=== PATIENT | female | born 1940 | race Caucasian/White ===

== ENCOUNTER → 2017-12-25 05:59 | Day surgery (SDC) | payer MEDICARE, BC ==
[~2017-12-25 05:59] MED LIST: Acetaminophen TAB* 325 MG PO PRN; Bacitracin OINTMENT* 0.5% 0.5 oz TUBE ONE; Buffered Lidocaine 0.9% SYRIN* 5 ML/SYR SYRINGE INTRADERM ONE; Clindamycin 900 MG IVPREMIX(* 900 MG/50 ML SDV IV ONE; Dexamethasone IV* 4 MG/ML 1 ML (4 MG) IV SLOW PU ONE; Dexamethasone IV* 4 MG/ML 1 ML (4 MG) ONE; DiMENhydriNATE IV* 50 MG/ML VIAL IV PUSH PRN; EPHEDrine (Pressors)* 50 MG/ML VIAL ONE; Famotidine IV* 10 MG/ML 2 ML (20 mg) IV ONE; Famotidine IV* 10 MG/ML 2 ML (20 mg) ONE; HYDROcodone/ACETAMIN 5-325 MG* 1 TAB ONE; HYDROcodone/ACETAMIN 5-325 MG* 1 TAB PO PRN; Heparin VIAL(*) 5000 UNITS/ML VIAL (FIVE THOUSAND) ONE; Labetalol IV* 5 MG/ML 20 ML VIAL ONE; Lidocaine 2% PF * 5 ML VIAL ONE; Midazolam* 1 MG/ML 2 ML VIAL (2 MG) ONE; Mivacurium Chloride* 20 MG/10 ML VIAL IV ONE; Naloxone* 0.4 MG/ML 1 ML VIAL IV PRN; Ondansetron INJ* 2 MG/ML VIAL ONE; Phenylephrine INJ* 10 MG/ML 1 ML VIAL (10 MG) ONE; Propofol* 10 MG/ML 20 ML BTL IV PUSH ONE; Scopolamine 1.5 mg* PATCH ONE; fentaNYL* 50 MCG/ML 2 ML VIAL (100 MCG VIAL) ONE
[2017-12-25 06:51] LABS: Hematocrit 38 % (35-47); Hemoglobin 12.9 g/dl (12.0-16.0); Mean Corpuscular HGB Conc 34 g/dl (31-36); Mean Corpuscular Hemoglobin 31 pg (27-31); Mean Corpuscular Volume 91 fL (80-97); Mean Platelet Volume 7.7 um3 (7.4-10.4); Platelet Count 225 10^3/ul (150-450); Red Blood Count 4.17 10^6/ul (4.00-5.40); Red Cell Distribution Width 13 % (10.5-15); White Blood Count 5.6 10^3/ul (3.5-10.8)
[2017-12-25] MEDS: fentaNYL* 50 MCG/ML 2 ML VIAL (100 MCG VIAL) IV PRN ×3 (11:18→11:48)
[2017-12-25 13:37] VITALS: BP 141/76
== END | disposition home or self-care (01) ==
LOC: OR 05:59
PROVIDERS: ATTEND Plastic Surgery
DX: T85.44XA Capsular contracture of breast implant, initial encounter (principal); Z85.3 Personal history of malignant neoplasm of breast; I10 Essential (primary) hypertension; E78.5 Hyperlipidemia, unspecified; R73.01 Impaired fasting glucose
CPT/HCPCS: 36415; 85027; 88304; A9270-GY; J1100; J1644; J2250; J2405; J2704; J3010

== ENCOUNTER 2018-10-13 15:46 | Emergency (ER) | payer MEDICARE, BC ==
--- OUTSIDE RECORDS SUMMARY | 2018-10-13 16:39 | XMS REPORT | Continuity of Care Document ---
:1940 External Reference #:[id number] Author Name Trinity Newby Care Team Providers Name Role Phone Val Levin MD Primary Care Physician Unavailable Payers Date Identification Numbers Payment Provider Subscriber Policy Number: [id number] Medicare Abhishek Merlos PayID: [id number] [address] [place] [address] Policy Number: [id number] [facility] Jose R Merlos PayID: [id number] [address] [place] [address] Problems Active Problems Provider Date Orthostatic hypotension Hector Wheeler M.D. Onset: 03/22/2011 Herpes zoster without complication Hector Wheeler M.D. Onset: 03/22/2011 Benign essential hypertension Hector Wheeler M.D. Onset: 12/07/2011 Pure hypercholesterolemia Hector Wheeler M.D. Onset: 12/07/2011 Localized, primary osteoarthritis of the Hector Wheeler M.D. Onset: 2011 lower leg Recurrent major depressive episodes Hector Wheeler M.D. Onset: 06/10/2012 Hypercalcemia Hector Wheeler M.D. Onset: 12/11/2012 Osteochondropathy Hector Wheeler M.D. Onset: 12/11/2012 Syncope and collapse Tamica Leon MD Onset: 02/15/2015 Idiopathic peripheral neuropathy Tamica Leon MD Onset: 02/15/2015 Epilepsy, not refractory Tamica Leon MD Onset: 03/10/2015 Diarrhea Dominic Tam MD Onset: 09/27/2006 Note: in 2014 neuro note was on Metamucil, Questran Family History Date Family Member(s) Observation Comments General Seizure Disorder Father Seizure Disorder possible, unclear, he was also an alcoholic. Onset: (age 62 Years) Mother Suicide 2 yrs after colon cancer Onset: (age 60 Years) Mother Colon Cancer had ostomy Social History Type Date Description Comments Sex Unknown Marital Status Lives With Tobacco Use Start: Unknown Never Smoked Cigarettes Smoking Status Reviewed: 10/11/18 Never Smoked Cigarettes ETOH Use 12/11/2012 Occasionally consumes alcohol Tobacco Use Start: Unknown Patient has never smoked Recreational Drug Use Denies Drug Use Exercise Type/Frequency Exercises regularly walks, water exercises at the [facility]- yoga , strength 3 days per week Allergies, Adverse Reactions, Alerts Active Allergies Reaction Severity Comments Date Amoxicillin Hives Rash and itching 03/11/2009 Codeine Phosphate nightmares terrible dreams 03/11/2009 Oxycontin Came off of very hard 03/11/2009 Black Pepper GI upset 09/27/2018 Medications Active Medications SIG Qnty Indications Ordering Date Provider Hydrochlorothiazide 1 by mouth 90caps Hector Shanks 01/30/2017 12.5mg every day Samia Wheeler Capsules Ibuprofen prn Hector Shanks 03/22/2011 200mg Capsules Samia Wheeler Lisinopril 1 by mouth 90tabs Kavin Levin, 10/08/2009 20mg Tablets every day M.D. Venlafaxine HCL ER Unknown 150mg Caps ER 24HR Mometasone Furoate Unknown 0.1% Ointment Probiotic 1 by mouth Unknown Capsules every day Calcium + D3 2 by mouth Unknown [id number] every day Tablets Zyrtec Allergy 1 by mouth Unknown 10mg Capsules every day Ketoconazole Unknown 2% Shampoo Hydrocortisone 2% facial Unknown cream Clotrimazole/Betamethasone Unknown Dipropionate 1-0.05% Cream Clobetasol Propionate Unknown 0.05% Ointment Loperamide HCL once daily and 30caps Unknown 2mg Capsules prn Simvastatin 1 tab by mouth 90tabs Kavin Levin, 40mg Tablets every night at M.D. bedtime History Medications Lidoderm one patch daily 30units Esdras 03/07/2011 - 5% Patches on for 12 h Samia Baeza 06/13/2011 Valtrex bid 14tabs 053.9 Esdras 03/06/2011 - 1gm Tablets Samia Baeza 03/22/2011 Meclizine HCL half two to three 20tabs 386.1 [place], 08/25/2009 - 25mg Tablets times a day 1 Samia 10/08/2009 Fexofenadine HCL 1 tab po qd prn 90tabs 272.4 Hector Shanks 06/09/2009 - 180mg Tablets Samia Wheeler 07/15/2014 Glucosamine-Chondroitin po bid 60caps Unknown - 10/27/2013 Capsules Probiotic 1 po qd Unknown - Capsules 06/10/2012 Metamucil 2 tbs by mouth 1Can Unknown - 28.3% Powder daily 07/31/2018 Calcium Citrate + 1 po bid Unknown - 600mg Tablets 10/27/2013 Cholestyramine 1 packet qd 90Packs Unknown - 4gm Packet 05/17/2015 Mucinex 1 tab twice a day 60tabs Unknown - 600mg Tablets ER 12HR by mouth as 07/31/2018 needed Probiotic-Acidophilus & 1 by mouth every 14caps Unknown - Bifidus day 07/31/2018 Capsules Vitamin D every day by Unknown - 400Unit Tablets mouth 09/11/2018 Biotin daily Unknown - 1mg Capsules 05/29/2016 Fexofenadine HCL 1 by mouth every Unknown - 180mg Tablets day prn 09/11/2018 Sudafed 24 Hour prn Unknown - 240mg Tablets 07/31/2018 ER 24HR Wellness Formula-Herbal daily prn Unknown - Defense Complex 07/31/2018 Sulfamethoxazole-Trimetho 1 by mouth every Unknown - prim day 02/11/2017 Unsure Tablets Cortisone cream for face Unknown - 09/11/2018 Prednisone Take 2 Tablets By Unknown - 5mg Tablets Mouth Once Daily 09/11/2018 For 7 Days, 1 Tablet Daily For... (Refer To Prescription Notes). Levocetirizine Barrett, - Dihydrochloride MD Justen 09/11/2018 5mg Tablets Lisinopril 1 po qd 90tabs Thananart, - 20mg Tablets Samia Qureshi 10/08/2009 Effexor XR 2 po qd 60caps Other Ordering - 150mg Caps ER 24HR Provider 07/31/2018 Hydrochlorothiazide 1 po qd 90tabs Hector Shanks - 12.5mg Samia Wheeler 06/12/2012 Tablets Loperamide HCL 1 tab po q6h prn Thananart, - 2mg Tablets Samia Qureshi 03/06/2011 Fexofenadine HCL 1 tab po qd prn 30tabs Thananart, - 180mg Tablets Samia Qureshi 06/09/2009 Omeprazole 1 po qd prn 30caps Thananart, - 20mg Capsules DR Kiera M.D. 03/06/2011 Famotidine 1 tab po bid prn Thananart, - 10mg Tablets Samia Qureshi 10/08/2009 Asa 1 po qod Swetha, - 81mg Samia Carter 07/31/2018 Alendronate Sodium 1 po weekly - 12tabs Hector Shanks - 70mg Tablets take on empty Samia Wheeler 03/06/2011 stomach, do not eat or recline for 30 minutes afterward Calcium-D 1 po bid 60caps Thananart, - [id number] Capsules Samia Qureshi 07/15/2014 Centrum Silver 1 po qd Thananart, - Tablets Samia Qureshi 05/29/2016 Vit. E 1 tab po qd Thananart, - 1000Iu Saima Qureshi 10/08/2009 Alkalol Nasal Wash use as directed Unknown - prn 10/08/2009 Acetaminophen 2 po qid prn 100tabs Thananart, - 325mg Tablets Samia Qureshi 07/31/2018 Coenzyme Q-10 1 tab po qd Thananart, - 100mg Capsules Samia Qureshi 10/08/2009 Lisinopril 1 po qd Unknown - 10mg Tablets 10/08/2009 Hydrochlorothiazide 1 by mouth every 90caps Kavin [place], - 12.5mg day M.DRosalia 01/30/2017 Capsules Immunizations CPT Code Status Date Vaccine Lot # [id number] Given 05/17/2015 Influenza Virus Vaccine, Quadrivalent, Split, [id number] Preservative Free 03135 Given 07/15/2014 Pneumococcal Conjugate Vaccine 13 Valent For [id number] Intramuscular Use 95697 Given 03/27/2013 Flu Vaccine Split Virus Preservative Free For [id number] Indiv 3Yr Older 89041 Given 12/07/2011 Pneumonia Vaccine [id number] 74722 Given 12/07/2011 Tdap - Tetanus/Diptheria/Acellular Pertussis [id number] 04710 Given 06/20/2011 Zoster (Zostavax) 53530 Given 06/20/2011 Zoster (Zostavax) [id number] Refused 05/29/2016 Influ Virus Vaccine, Quadrivalent, Split Virus, Im Fluzone not PF Vital Signs Date Vital Result Comment 10/11/2018 9:40am Height 65.5 inches 5'5.50" Weight 133.12 lb Heart Rate 62 /min BP Systolic 146 mmHg BP Diastolic 78 mmHg Pain Level 2 O2 % BldC Oximetry 98 % BMI (Body Mass Index) 21.8 kg/m2 09/26/2018 12:53pm Height 65.5 inches 5'5.50" Weight 134.00 lb Heart Rate 69 /min BP Systolic 151 mmHg BP Diastolic 89 mmHg O2 % BldC Oximetry 98 % BMI (Body Mass Index) 22.0 kg/m2 09/12/2018 10:15am Height 65.5 inches 5'5.50" Weight 132.00 lb w/ shoes Heart Rate 72 /min BP Systolic 158 mmHg at end of intake BP Diastolic 84 mmHg at end of intake BP Systolic Sitting 191 mmHg BP Diastolic Sitting 89 mmHg Pain Level 2 BMI (Body Mass Index) 21.6 kg/m2 08/27/2018 4:19pm Height 65.5 inches 5'5.50" BP Systolic Sitting 146 mmHg BP Diastolic Sitting 80 mmHg Respiratory Rate 14 /min 07/31/2018 11:03am Height 65.5 inches 5'5.50" Weight 135.25 lb Heart Rate 62 /min BP Systolic Sitting 138 mmHg BP Diastolic Sitting 86 mmHg Pain Level 3 O2 % BldC Oximetry 96 % BMI (Body Mass Index) 22.2 kg/m2 02/12/2017 3:34pm Height 65.5 inches 5'5.50" Weight 133.38 lb Heart Rate 72 /min BP Systolic Sitting 148 mmHg BP Diastolic Sitting 76 mmHg Respiratory Rate 14 /min Body Temperature 98.0 F BMI (Body Mass Index) 21.9 kg/m2 01/02/2017 10:56am Height 65.5 inches 5'5.50" Weight 134.12 lb Heart Rate 62 /min BP Systolic Sitting 170 mmHg BP Diastolic Sitting 76 mmHg Respiratory Rate 14 /min Body Temperature 98.2 F BMI (Body Mass Index) 22.0 kg/m2 05/29/2016 9:52am Height 65.5 inches 5'5.50" Weight 148.00 lb Heart Rate 62 /min BP Systolic 136 mmHg pt's home BP BP Diastolic 90 mmHg pt's home BP BP Systolic Sitting 166 mmHg BP Diastolic Sitting 80 mmHg Body Temperature 97.6 F O2 % BldC Oximetry 98 % BMI (Body Mass Index) 24.3 kg/m2 11/24/2015 1:27pm Height 66 inches 5'6" Weight 144.00 lb Heart Rate 66 /min BP Systolic Sitting 96 mmHg BP Diastolic Sitting 58 mmHg Body Temperature 98.5 F O2 % BldC Oximetry 96 % BMI (Body Mass Index) 23.2 kg/m2 05/17/2015 9:17am Height 66 inches 5'6" Weight 147.00 lb Heart Rate 66 /min BP Systolic 134 mmHg BP Diastolic 78 mmHg Body Temperature 97.7 F O2 % BldC Oximetry 100 % BMI (Body Mass Index) 23.7 kg/m2 03/10/2015 9:30am Height 66 inches 5'6" Weight 148.00 lb Heart Rate 64 /min BP Systolic Sitting 136 mmHg BP Diastolic Sitting 74 mmHg Respiratory Rate 16 /min BMI (Body Mass Index) 23.9 kg/m2 02/15/2015 1:00pm Height 66 inches 5'6" Weight 148.00 lb Heart Rate 80 /min BP Systolic Sitting 132 mmHg BP Diastolic Sitting 76 mmHg Respiratory Rate 14 /min BMI (Body Mass Index) 23.9 kg/m2 11/11/2014 10:03am Height 66 inches 5'6" Weight 145.00 lb Heart Rate 64 /min BP Systolic Sitting 118 mmHg BP Diastolic Sitting 70 mmHg O2 % BldC Oximetry 96 % BMI (Body Mass Index) 23.4 kg/m2 07/15/2014 2:29pm Height 65.5 inches 5'5.50" Weight 149.50 lb Heart Rate 76 /min BP Systolic Sitting 132 mmHg 146/70 initially BP Diastolic Sitting 70 mmHg 146/70 initially BP Systolic Recheck 132 mmHg BP Diastolic Recheck 70 mmHg Body Temperature 97.5 F BMI (Body Mass Index) 24.5 kg/m2 10/27/2013 9:01am Weight 145.00 lb Heart Rate 72 /min BP Systolic Sitting 126 mmHg BP Diastolic Sitting 68 mmHg Body Temperature 97.6 F 03/27/2013 10:58am Weight 148.00 lb Heart Rate 68 /min BP Systolic Sitting 126 mmHg BP Diastolic Sitting 84 mmHg 12/11/2012 9:59am Height 65.5 inches 5'5.50" Weight 144.75 lb Heart Rate 66 /min BP Systolic Sitting 140 mmHg BP Diastolic Sitting 82 mmHg BMI (Body Mass Index) 23.7 kg/m2 06/10/2012 9:47am Height 65.5 inches 5'5.50" Weight 138.00 lb Heart Rate 68 /min BP Systolic Sitting 124 mmHg BP Diastolic Sitting 72 mmHg BMI (Body Mass Index) 22.6 kg/m2 12/07/2011 10:14am Height 65.5 inches 5'5.50" Weight 136.25 lb Heart Rate 72 /min BP Systolic Sitting 134 mmHg BP Diastolic Sitting 66 mmHg BMI (Body Mass Index) 22.3 kg/m2 06/13/2011 12:55pm Height 65.5 inches 5'5.50" Weight 142.25 lb Heart Rate 64 /min BP Systolic 134 mmHg r (pt. machine) BP Diastolic 82 mmHg r (pt. machine) BP Systolic Sitting 152 mmHg r (manual-nurse) BP Diastolic Sitting 68 mmHg r (manual-nurse) BMI (Body Mass Index) 23.3 kg/m2 03/22/2011 11:41am Height 65.5 inches 5'5.50" Weight 139.50 lb Heart Rate 72 /min BP Systolic Sitting 140 mmHg BP Diastolic Sitting 80 mmHg BMI (Body Mass Index) 22.9 kg/m2 03/06/2011 1:34pm Height 66.25 inches 5'6.25" Weight 139.00 lb Heart Rate 64 /min BP Systolic Sitting 120 mmHg BP Diastolic Sitting 80 mmHg O2 % BldC Oximetry 98 % BMI (Body Mass Index) 22.3 kg/m2 12/08/2010 1:50pm Weight 148.00 lb Heart Rate 82 /min BP Systolic Sitting 126 mmHg BP Diastolic Sitting 62 mmHg 05/23/2010 3:03pm Weight 150.00 lb Heart Rate 76 /min BP Systolic Sitting 124 mmHg BP Diastolic Sitting 76 mmHg 11/09/2009 2:59pm Weight 145.00 lb Heart Rate 62 /min BP Systolic Sitting 122 mmHg BP Diastolic Sitting 78 mmHg 10/08/2009 11:25am Weight 145.00 lb Heart Rate 64 /min BP Systolic Sitting 150 mmHg BP Diastolic Sitting 80 mmHg 09/08/2009 9:44am Height 66.25 inches 5'6.25" Weight 149.00 lb Heart Rate 72 /min BP Systolic 120 mmHg BP Diastolic 70 mmHg BMI (Body Mass Index) 23.9 kg/m2 08/25/2009 10:35am Height 66.25 inches 5'6.25" Weight 146.00 lb Heart Rate 76 /min BP Systolic 114 mmHg BP Diastolic 64 mmHg BP Systolic Sitting 114 mmHg BP Diastolic Sitting 80 mmHg BP Systolic Standing 120 mmHg BP Diastolic Standing 80 mmHg BP Systolic Lying Down 124 mmHg BP Diastolic Lying Down 84 mmHg BMI (Body Mass Index) 23.4 kg/m2 06/09/2009 8:47am Height 66.25 inches 5'6.25" Weight 145.25 lb Heart Rate 78 /min BP Systolic Sitting 134 mmHg BP Diastolic Sitting 74 mmHg BMI (Body Mass Index) 23.3 kg/m2 04/14/2009 10:57am Weight 146.00 lb Heart Rate 76 /min BP Systolic Sitting 122 mmHg BP Diastolic Sitting 82 mmHg Respiratory Rate 16 /min Body Temperature 98.3 F 03/11/2009 3:01pm Height 66.25 inches 5'6.25" Weight 149.00 lb Heart Rate 78 /min BP Systolic Sitting 112 mmHg BP Diastolic Sitting 70 mmHg BMI (Body Mass Index) 23.9 kg/m2 Results Test Date Facility Test Result H/L Range Note Laboratory test 10/02/2018 [facility] Clotest SEE RESULT [address] [place] [address] [phone] Laboratory test 10/02/2018 [facility] Surgical SEE RESULT [address] [place] [address] [phone] CBC Auto Diff 09/27/2018 [facility] White Blood 5.4 10^3/uL N 3.5-10.[address] [place] [address] [phone] Red Blood Count 4.48 10^6/uL N 3.70-4.87 Hemoglobin 13.5 g/dL N 12.0-16.0 Hematocrit 40 % N 35-47 Mean Corpuscular Volume 90 fL N 80-97 Mean Corpuscular Hemoglobin 30 pg N 27-31 Mean Corpuscular HGB Conc 34 g/dL N 31-36 Red Cell Distribution Width 13 % N 10.5-15 Platelet Count 239 10^3/uL N 150-450 Mean Platelet Volume 8.0 fL N 7.4-10.4 Abs Neutrophils 3.4 10^3/uL N 1.5-7.7 Abs Lymphocytes 1.2 10^3/uL N 1.0-4.8 Abs Monocytes 0.6 10^3/uL N 0-0.8 Abs Eosinophils 0.2 10^3/uL N 0-0.6 Abs Basophils 0.1 10^3/uL N 0-0.2 Abs Nucleated RBC 0.0 10^3/uL Granulocyte % 63.0 % Lymphocyte % 22.0 % Monocyte % 10.4 % Eosinophil % 3.6 % Basophil % 1.0 % Nucleated Red Blood Cells % 0.2 Laboratory test 09/27/2018 [facility] Ferritin 48.6 ng/mL N 11 -307 [address] [place] [address] [phone] Iron & Iron Binding 09/27/2018 [facility] Iron 109 g/dL N 50 -[address] [place] [address] [phone] Unsaturated Iron Binding < 433 g/dL Total Iron Binding Capacity 448 g/dL N 250-450 Transferrin 320 mg/dL N 203-362 % Iron Saturation 24 % N 15-55 Laboratory test 09/27/2018 [facility] C Reactive 8.60 mg/L High <8.[address] [place] [address] [phone] Gastrin 13 pg/mL 5 Chromogranin-A 192 ng/mL Abnormal <93 6 Glucagon 41 pg/mL <=80 7 Vasoactive Intestinal Ruperto <50 pg/mL <75 8 Calcium,24 09/14/2018 [facility] Urine Calcium 13 mg/24h < 200 9 Hour,Urine [address] [place] [address] [phone] Urine Collection Duration 24 h Urine Volume 1300 mL Urine Calcium Conc 1 mg/dL 10 Creatinine 24HR 09/14/2018 [facility] Urine Collection 24 hr Urine [address] [place] [address] [phone] Urine Total Volume 1300 mL Urine Creatinine Concentration 35.21 mg/dL Urine Creatinine/24 Hour 457.73 mg/24Hr Low 600-1800 Laboratory test 09/14/2018 [facility] Vitamin D 50.5 ng/mL High 20-[address] Total 25(Oh) [place] [address] [phone] Calcium 10.0 mg/dL N 8.6-10.3 Creatinine 09/14/2018 [facility] Creatinine 0.93 mg/dL N 0.51- [address] [place] [address] [phone] Egfr Non- 58.6 >60 Egfr 70.9 >60 12 Laboratory test 09/14/2018 [facility] TSH (Thyroid 3.16 mcIU/mL N 0.34-5.[address] Stim [place]) [place] [address] [phone] Free T4 (Free Thyroxine) 0.57 ng/dL Low 0.61-1.12 T3 Free 2.60 pg/mL N 2.5-3.9 Laboratory test 07/31/2018 [facility] Creatine 268 U/L High 10 -[address] Kinase(CK) [place] [address] [phone] Lyme Screen W/ Reflex To WB Negative Negative Laboratory test 07/31/2018 [facility] C Reactive 8.89 mg/L High <8.[address] [place] [address] [phone] Erythrocyte Sed Rate 35 mm/Hr High 0-30 13 Immunoglobulins 07/31/2018 [facility] Immunoglobulin G 851 767 - [address] mg/dL 15[address] [place] [address] [phone] Immunoglobulin M 65 mg/dL 37 - 286 Immunoglobulin A 179 mg/dL 61 - 356 CBC Auto Diff 07/31/2018 [facility] White Blood 5.7 10^3/uL N 3.5-10.[address] [place] [address] [phone] Red Blood Count 4.13 10^6/uL N 3.70-4.87 Hemoglobin 12.3 g/dL N 12.0-16.0 Hematocrit 37 % N 33-41 Mean Corpuscular Volume 89 fL N 80-97 Mean Corpuscular Hemoglobin 30 pg N 27-31 Mean Corpuscular HGB Conc 33 g/dL N 31-36 Red Cell Distribution Width 13 % N 10.5-15 Platelet Count 227 10^3/uL N 150-450 Mean Platelet Volume 7.5 fL N 7.4-10.4 Abs Neutrophils 3.4 10^3/uL N 1.5-7.7 Abs Lymphocytes 1.4 10^3/uL N 1.0-4.8 Abs Monocytes 0.7 10^3/uL N 0-0.8 Abs Eosinophils 0.2 10^3/uL N 0-0.6 Abs Basophils 0.1 10^3/uL N 0-0.2 Abs Nucleated RBC 0 10^3/uL Granulocyte % 58.6 % Lymphocyte % 24.8 % Monocyte % 11.8 % Eosinophil % 3.8 % Basophil % 1.0 % Nucleated Red Blood Cells % 0.1 Laboratory test 07/31/2018 [facility] Ferritin 48.9 ng/mL N 11 -[address] [place] [address] [phone] Magnesium 2.2 mg/dL N 1.9-2.7 Pthi 07/31/2018 [facility] Calcium (PTH Intact) 9.9 mg/dL N 8.6-10.[address] [place] [address] [phone] PTH Intact 16.2 pmol/L High 1.3-9.3 Laboratory test 07/31/2018 [facility] TSH (Thyroid 3.39 mcIU/mL N 0.34-5.[address] Stim [place]) [place] [address] [phone] Thyroperoxidase AB 1.65 IU/mL N <9 RBC Folic Acid C 15 Laboratory test 10/25/2017 [facility] Cytology SEE RESULT [address] [address] [phone] CBC Auto Diff 02/08/2017 [facility] White Blood 5.5 10^3/uL N 3.5-[address] Count .8 [place] [address] [phone] Red Blood Count 3.89 10^6/uL Low 4.0-5.4 Hemoglobin 12.1 g/dL N 12.0-16.0 Hematocrit 36 % N 35-47 Mean Corpuscular Volume 92 fL N 80-97 Mean Corpuscular Hemoglobin 31 pg N 27-31 Mean Corpuscular HGB Conc 34 g/dL N 31-36 Red Cell Distribution Width 13 % N 10.5-15 Platelet Count 220 10^3/uL N 150-450 Mean Platelet Volume 9 um3 N 7.4-10.4 Abs Neutrophils 3.5 10^3/uL N 1.5-7.7 Abs Lymphocytes 1.0 10^3/uL N 1.0-4.8 Abs Monocytes 0.6 10^3/uL N 0-0.8 Abs Eosinophils 0.3 10^3/uL N 0-0.6 Abs Basophils 0 10^3/uL N 0-0.2 Abs Nucleated RBC 0 10^3/uL N Granulocyte % 64.1 % N 38-83 Lymphocyte % 18.7 % Low 25-47 Monocyte % 11.6 % High 1-9 Eosinophil % 4.8 % N 0-6 Basophil % 0.8 % N 0-2 Nucleated Red Blood Cells % 0 N Laboratory test 02/08/2017 [facility] C Reactive Protein 3.43 mg /L N < 5.00 [address] [place] [address] [phone] Lipid Profile 11/17/2015 [facility] Triglycerides 214 mg/dL N 18 (Trig/Chol/HDL) [address] [place] [address] [phone] Cholesterol 175 mg/dL N 19 HDL Cholesterol 41.8 mg/dL N 20 LDL Cholesterol 90 mg/dL N 21 Comp Metabolic Panel 02/18/2015 [facility] Sodium 133 mmol/L N 133-[address] [place] [address] [phone] Potassium 4.5 mmol/L N 3.5-5.0 Chloride 106 mmol/L N 101-111 Co2 Carbon Dioxide 22 mmol/L N 22-32 Anion Gap 5 mmol/L N 2-11 Glucose 70 mg/dL N 70-100 Blood Urea Nitrogen 35 mg/dL High 6-24 Creatinine 0.93 mg/dL N 0.51-0.95 BUN/Creatinine Ratio 37.6 High 8-20 Calcium 9.5 mg/dL N 8.6-10.3 Total Protein 6.5 g/dL N 6.4-8.9 Albumin 4.0 g/dL N 3.2-5.2 Globulin 2.5 g/dL N 2-4 Albumin/Globulin Ratio 1.6 N 1-3 Total Bilirubin 0.30 mg/dL N 0.2-1.0 Alkaline Phosphatase 79 U/L N 34-104 Alt 20 U/L N 7-52 Ast 26 U/L N 13-39 Egfr Non- 59.3 N >60 Egfr 76.2 N >60 22 Laboratory test 02/18/2015 [facility] Erythrocyte Sed 37 mm/Hr N 0-40 [address] [place] [address] [phone] Folic Acid (Folate) > 20.00 ng/mL N >3.99 24 Hemoglobin A1c (Glyco HGB) 6.1 % High Less than 6.0 25 Vitamin B12 872 pg/mL N 180-914 26 TSH (Thyroid Stim Horm) 3.05 ?IU/mL N 0.34-5.60 27 Protein 02/18/2015 [facility] Total 6.7 g/dL N 6.3 - Electrophoresis [address] Protein(Pep) 7.9 [place] [address] [phone] Albumin 3.3 g/dL Abnormal 3.4-4.7 Alpha-1 Globulin 0.3 g/dL N 0.1-0.3 Alpha-2 Globulin 1.0 g/dL N 0.6-1.0 Beta Globulin 0.9 g/dL N 0.7-1.2 Gamma Globulin 1.2 g/dL N 0.6-1.6 Albumin/Globulin Ratio 0.95 N Impression See Comment N 28 Laboratory test 01/21/2015 [facility] Magnesium 2.0 mg/dL N 1.9-2.[address] [place] [address] [phone] Troponin-I (TnI) 0.01 ng/mL N <0.03 29 Comp Metabolic Panel 01/21/2015 [facility] Sodium 128 mmol/L Low 133-[address] [place] [address] [phone] Potassium 3.4 mmol/L Low 3.5-5.0 Chloride 98 mmol/L Low 101-111 Co2 Carbon Dioxide 22 mmol/L N 22-32 Anion Gap 8 mmol/L N 2-11 Glucose 120 mg/dL High 70-100 Blood Urea Nitrogen 44 mg/dL High 6-24 Creatinine 1.25 mg/dL High 0.51-0.95 BUN/Creatinine Ratio 35.2 High 8-20 Calcium 9.8 mg/dL N 8.6-10.3 Total Protein 7.0 g/dL N 6.4-8.9 Albumin 4.0 g/dL N 3.2-5.2 Globulin 3.0 g/dL N 2-4 Albumin/Globulin Ratio 1.3 N 1-3 Total Bilirubin 0.30 mg/dL N 0.2-1.0 Alkaline Phosphatase 84 U/L N 34-104 Alt 20 U/L N 7-52 Ast 33 U/L N 13-39 Egfr Non- 42.1 N >60 Egfr 54.2 N >60 30 CBC Auto Diff 01/21/2015 [facility] White Blood 7.0 10^3/uL N 4.8-10.[address] [place] [address] [phone] Red Blood Count 4.31 10^6/uL N 4.0-5.4 Hemoglobin 13.3 g/dL N 12.0-16.0 Hematocrit 40 % N 35-47 Mean Corpuscular Volume 93 fL N 80-97 Mean Corpuscular Hemoglobin 31 pg N 27-31 Mean Corpuscular HGB Conc 33 g/dL N 31-36 Red Cell Distribution Width 13 % N 10.5-15 Platelet Count 227 10^3/uL N 150-450 Mean Platelet Volume 8 um3 N 7.4-10.4 Abs Neutrophils 4.5 10^3/uL N 1.5-7.7 Abs Lymphocytes 1.6 10^3/uL N 1.0-4.8 Abs Monocytes 0.6 10^3/uL N 0-0.8 Abs Eosinophils 0.3 10^3/uL N 0-0.6 Abs Basophils 0 10^3/uL N 0-0.2 Abs Nucleated RBC 0 10^3/uL N Granulocyte % 63.9 % N 38-83 Lymphocyte % 22.3 % Low 25-47 Monocyte % 9.0 % N 1-9 Eosinophil % 4.2 % N 0-6 Basophil % 0.6 % N 0-2 Nucleated Red Blood Cells % 0 N CBC Auto Diff 07/30/2014 [facility] White Blood 5.2 10^3/uL N 4.8-10.[address] [place] [address] [phone] Red Blood Count 4.13 10^6/uL N 4.0-5.4 Hemoglobin 12.5 g/dL N 12.0-16.0 Hematocrit 38 % N 35-47 Mean Corpuscular Volume 91 fL N 80-97 Mean Corpuscular Hemoglobin 30 pg N 27-31 Mean Corpuscular HGB Conc 33 g/dL N 31-36 Red Cell Distribution Width 14 % N 10.5-15 Platelet Count 239 10^3/uL N 150-450 Mean Platelet Volume 9 um3 N 7.4-10.4 Abs Neutrophils 3.2 10^3/uL N 1.5-7.7 Abs Lymphocytes 1.3 10^3/uL N 1.0-4.8 Abs Monocytes 0.5 10^3/uL N 0-0.8 Abs Eosinophils 0.2 10^3/uL N 0-0.6 Abs Basophils 0 10^3/uL N 0-0.2 Abs Nucleated RBC 0 10^3/uL N Granulocyte % 60.9 % N 38-83 Lymphocyte % 24.5 % Low 25-47 Monocyte % 8.8 % N 1-9 Eosinophil % 4.8 % N 0-6 Basophil % 1.0 % N 0-2 Nucleated Red Blood Cells % 0 N Lipid Profile 07/30/2014 [facility] Triglycerides 152 mg/dL N 31 (Trig/Chol/HDL) [address] [place] [address] [phone] Cholesterol 142 mg/dL N 32 HDL Cholesterol 39.1 mg/dL N 33 LDL Cholesterol 73 mg/dL N 34 Comp Metabolic Panel 07/30/2014 [facility] Sodium 134 mmol/L N 133-145 [address] [place] [address] [phone] Potassium 4.2 mmol/L N 3.5-5.0 Chloride 104 mmol/L N 101-111 Co2 Carbon Dioxide 25 mmol/L N 22-32 Anion Gap 5 mmol/L N 2-11 Glucose 89 mg/dL N 70-100 Blood Urea Nitrogen 27 mg/dL High 6-24 Creatinine 0.88 mg/dL N 0.51-0.95 BUN/Creatinine Ratio 30.7 High 8-20 Calcium 9.8 mg/dL N 8.6-10.3 Total Protein 6.4 g/dL N 6.4-8.9 Albumin 4.0 g/dL N 3.2-5.2 Globulin 2.4 g/dL N 2-4 Albumin/Globulin Ratio 1.7 N 1-3 Total Bilirubin 0.40 mg/dL N 0.2-1.0 Alkaline Phosphatase 89 U/L N 34-104 Alt 24 U/L N 7-52 Ast 30 U/L N 13-39 Egfr Non- 63.2 N >60 Egfr 81.2 N >60 35 Pthi 07/30/2014 [facility] PTH Intact 18.7 pmol/L High 1.3- 9.3 [address] [place] [address] [phone] Calcium (PTH Intact) 9.8 mg/dL N 8.6-10.3 Lipid Profile 10/16/2013 [facility] Triglycerides 127 mg/dL N 36, 37 (Trig/Chol/HDL) [address] [place] [address] [phone] Cholesterol 125 mg/dL N 38 HDL Cholesterol 40.4 mg/dL N 39 LDL Cholesterol 59 mg/dL N 40 Surgical 08/27/2013 [facility] S RUN DATE: [address] 08/28/ <[place] [address] NOTE> [phone] Pthi 07/16/2013 [facility] PTH Intact 20.2 pmol/L High 1.3-9. [address] [place] [address] [phone] Calcium (PTH Intact) 10.4 mg/dL High 8.6-10.3 Basic Metabolic Panel 04/08/2013 [facility] Sodium 135 mmol/L 133-[address] [place] [address] [phone] Potassium 4.3 mmol/L 3.5-5.0 Chloride 103 mmol/L 101-111 Co2 Carbon Dioxide 25.0 mmol/L 22-32 Anion Gap 7.0 mmol/L 2-11 Glucose 85 mg/dL 70-100 Blood Urea Nitrogen 32 mg/dL High 6-24 Creatinine 0.80 mg/dL 0.50-1.40 BUN/Creatinine Ratio 40.0 High 8-20 Calcium 10.5 mg/dL High 8.1-9.9 Egfr Non- 70.9 >60 Egfr 91.2 >60 42 Pthi 12/16/2012 [facility] PTH Intact 14.2 pmol/L High 1.3- 9.[address] [place] [address] [phone] Calcium (PTH Intact) 10.4 mg/dL High 8.1-9.9 CBC No Diff 11/18/2012 [facility] White Blood 5.4 10^3/uL 4.8 -10.[address] [place] [address] [phone] Red Blood Count 4.20 10^6/uL 4.0-5.4 Hemoglobin 11.9 g/dL Low 12.0-16.0 Hematocrit 36 % 35-47 Mean Corpuscular Volume 86 fL 80-97 Mean Corpuscular Hemoglobin 28 pg 27-31 Mean Corpuscular HGB Conc 33 g/dL 31-36 Red Cell Distribution Width 15 % 10.5-15 Platelet Count 252 10^3/uL 150-450 Mean Platelet Volume 8 um3 7.4-10.4 Laboratory test 11/18/2012 [facility] Direct NEGATIVE finding [address] [place] [address] [phone] Comp Metabolic 11/18/2012 [facility] Sodium 137 mmol/L 133-[address] [place] [address] [phone] Potassium 4.7 mmol/L 3.5-5.0 Chloride 108 mmol/L 101-111 Co2 Carbon Dioxide 25.0 mmol/L 22-32 Anion Gap 4.0 mmol/L 2-11 Glucose 96 mg/dL 70-100 Blood Urea Nitrogen 33 mg/dL High 6-24 Creatinine 1.20 mg/dL 0.50-1.40 BUN/Creatinine Ratio 27.5 High 8-20 Calcium 11.0 mg/dL High 8.1-9.9 Total Protein 6.7 g/dL 6.2-8.1 Albumin 4.0 g/dL 3.2-5.2 Globulin 2.7 g/dL 2-4 Albumin/Globulin Ratio 1.5 1-3 Total Bilirubin 0.6 mg/dL 0.4-1.5 Alkaline Phosphatase 110 U/L 30-110 Alt 23 U/L 14-54 Ast 31 U/L 12-42 Egfr Non- 44.4 >60 Egfr 57.1 >60 43 Laboratory test finding 11/18/2012 [facility] LDH 184 U/L 95- [address] [place] [address] [phone] Vitamin B12 1098 pg/mL High 180-914 TSH (Thyroid Stimulating Horm) 3.63 miu/mL 0.34-5.60 Polina (Anti-Nuclear AB) Screen Negative Negative Protein 11/18/2012 [facility] Total 7.2 g/dL 6.3 - Electrophoresis [address] Protein(Pep) 7.9 [place] [address] [phone] Albumin 3.7 g/dL 3.4-4.7 Alpha-1 Globulin 0.2 g/dL 0.1-0.3 Alpha-2 Globulin 1.0 g/dL 0.6-1.0 Beta Globulin 1.1 g/dL 0.7-1.2 Gamma Globulin 1.2 g/dL 0.6-1.6 Albumin/Globulin Ratio 1.03 Impression See Comment 44 Surgical 07/23/2012 [facility] S RUN DATE: [address] 07/24/ <[place] [address] NOTE> [phone] Stool For Blood 07/23/2012 [facility] Stool Occult (SEE NOTE) [address] Blood [place], [place] [id number] [phone] Clotest 07/23/2012 [facility] Clotest (SEE NOTE) [address] [place] [address] [phone] Stool For Blood 06/18/2012 Rn Med Surg In House Misc neg x's 3 Vitamin B12 And 06/10/2012 [facility] Vitamin B12 851 pg/mL 180-91 Folate Serum [address] 4 [place] [address] [phone] Folate > 25.0 ng/mL High 2-16 Iron & Iron Binding 06/10/2012 [facility] Iron 37 g/dL 28- [address] [place] [address] [phone] Unsaturated Iron Binding 327 g/dL Total Iron Binding Capacity 364 g/dL 250-450 % Iron Saturation 10 % Low 15-55 Laboratory test 06/10/2012 [facility] TSH (Thyroid 2.56 0.34- 5.[address] Stimulating miu/[place] [address] Horm) [phone] Ferritin 80 ng/mL 11-307 CBC Auto Diff 06/04/2012 [facility] White Blood 5.5 10^3/uL 4.8-10.[address] [place] [address] [phone] Red Blood Count 3.83 10^6/uL Low 4.0-5.4 Hemoglobin 11.3 g/dL Low 12.0-16.0 Hematocrit 35 % 35-47 Mean Corpuscular Volume 91 fL 80-97 Mean Corpuscular Hemoglobin 30 pg 27-31 Mean Corpuscular HGB Conc 33 g/dL 31-36 Red Cell Distribution Width 13 % 10.5-15 Platelet Count 274 10^3/uL 150-450 Mean Platelet Volume 9 um3 7.4-10.4 Abs Neutrophils 3.3 10^3/uL 1.5-7.7 Abs Lymphocytes 1.3 10^3/uL 1.0-4.8 Abs Monocytes 0.5 10^3/uL 0-0.8 Abs Eosinophils 0.3 10^3/uL 0-0.6 Abs Basophils 0 10^3/uL 0-0.2 Abs Nucleated RBC 0 10^3/uL Granulocyte % 59.7 % 38-83 Lymphocyte % 24.4 % Low 25-47 Monocyte % 9.2 % High 1-9 Eosinophil % 5.8 % 0-6 Basophil % 0.9 % 0-2 Nucleated Red Blood Cells % 0 Comp Metabolic Panel 06/04/2012 [facility] Sodium 136 mmol/L 133-145 [address] [place] [address] [phone] Potassium 5.1 mmol/L High 3.5-5.0 Chloride 107 mmol/L 101-111 Co2 Carbon Dioxide 25.0 mmol/L 22-32 Anion Gap 4.0 mmol/L 2-11 Glucose 88 mg/dL 70-100 Blood Urea Nitrogen 35 mg/dL High 6-24 Creatinine 0.90 mg/dL 0.50-1.40 BUN/Creatinine Ratio 38.9 High 8-20 Calcium 10.6 mg/dL High 8.1-9.9 Total Protein 6.1 g/dL Low 6.2-8.1 Albumin 3.7 g/dL 3.2-5.2 Globulin 2.4 g/dL 2-4 Albumin/Globulin Ratio 1.5 1-3 Total Bilirubin 0.5 mg/dL 0.4-1.5 Alkaline Phosphatase 104 U/L 30-110 Alt 25 U/L 14-54 Ast 25 U/L 12-42 Egfr Non- 62.1 >60 Egfr 79.8 >60 48 Lipid Profile 06/04/2012 [facility] Triglycerides 163 mg/dL 40-200 (Trig/Chol/HDL) [address] [place] [address] [phone] Cholesterol 168 mg/dL Less than 200 HDL Cholesterol 44 mg/dL 40-60 49 Cholesterol/HDL Ratio 3.8 Average 1-4.44 LDL Cholesterol 91.4 mg/dL Less Than 100 50 Basic Metabolic Panel 12/05/2011 [facility] Sodium 140 mmol/L 135-145 [address] [place] [address] [phone] Potassium 4.8 mmol/L 3.5-5.0 Chloride 109 mmol/L 101-111 Co2 (Carbon Dioxide) 26.0 mmol/L 22-32 Anion Gap 5.0 mmol/L 2-11 51 Glucose 93 mg/dL 70-100 BUN 24 mg/dL 6-24 Creatinine 0.9 mg/dL 0.50-1.40 One Over Creatinine 1.11 BUN/Creatinine Ratio 26.7 High 8-20 Calcium 10.5 mg/dL High 8.1-9.9 eGFR Non- 62.1 > 60 eGFR 79.8 > [address] [facility] 06/20/2011 [facility] TSH 2.37 MIU/ML 0.34- 5.60 Panel [address] [place] [address] [phone] Comp Metabolic 06/20/2011 [facility] Sodium 136 mmol/L 135- 145 Panel [address] [place] [address] [phone] Potassium 4.6 mmol/L 3.5-5.0 Chloride 109 mmol/L 101-111 Co2 (Carbon Dioxide) 26.0 mmol/L 22-32 Anion Gap 1.0 mmol/L Low 2-11 53 Glucose 92 mg/dL 70-100 BUN 29 mg/dL High 6-24 Creatinine 1.1 mg/dL 0.50-1.40 One Over Creatinine 0.90 BUN/Creatinine Ratio 26.4 High 8-20 Calcium 10.3 mg/dL High 8.1-9.9 Total Protein 6.5 GM/DL 6.2-8.1 Albumin 3.9 GM/DL 3.2-5.2 Globulin 2.6 GM/DL 2-4 Albumin/Globulin Ratio 1.5 1-3 Bilirubin Total 0.6 mg/dL 0.4-1.5 54 Alkaline Phosphatase 70 U/L 30-110 Alt (SGPT) 35 U/L 14-54 Ast (Sgot) 36 U/L 12-42 eGFR Non- 49.4 > 60 eGFR 63.5 > 60 55 Lipid Profile 06/20/2011 [facility] Triglyceride 162 mg/dL 40 -200 (Trig/Chol/HDL) [address] [place] [address] [phone] Cholesterol 174 mg/dL Less Than 200 56 High Density Lipoprotein 36 mg/dL Low 40-60 57 Cholesterol/HDL Ratio 4.83 AVERAGE High 1-4.44 Low Density Lipoprotein 106 mg/dL High Less Than 100 58 CBC Auto Diff 06/20/2011 [facility] White Blood 4.2 CUMM Low 4.8-10.[address] [place] [address] [phone] Red Cell Count 3.59 CUMM Low 4.2-5.4 Hemoglobin 11.7 g/dL Low 12.0-16.0 Hematocrit 33 % Low 35-47 Mean Corpuscular Volume 91 um3 79-97 Mean Corpuscular Hemoglob 33 pg High 27-31 Mean Corpuscular HGB Cone 36 g/dL 32-36 Redcell Distribution WDTH 13 % 10.5-15 Platelet Count 202 CUMM 150-450 Mean Platelet Volume 8.5 um3 7.4-10.4 Gran % 54.3 % 38-83 Lymph % 31.1 % 25-47 Mononuclear % 10.6 % High 1-9 Eosinophil % 3.5 % 0-6 Basophil % 0.5 % 0-2 Abs Lymphs 1.3 1.0-4.8 Abs Mononuclear 0.4 0-0.8 Absolute Neutrophil Count 2.3 1.5-7.7 Abs Eosinophils 0.1 0-0.6 Abs Basophils 0 0-0.2 Comp Metabolic Panel 10/17/2010 [facility] Sodium 136 mmol/L 135-[address] [place] [address] [phone] Potassium 4.3 mmol/L 3.5-5.0 Chloride 109 mmol/L 101-111 Co2 (Carbon Dioxide) 22.0 mmol/L 22-32 Anion Gap 5.0 mmol/L 2-11 59 Glucose 101 mg/dL High 70-100 BUN 47 mg/dL High 6-24 Creatinine 1.50 mg/dL High 0.50-1.40 One Over Creatinine 0.60 BUN/Creatinine Ratio 31.3 High 8-20 Calcium 10.3 mg/dL High 8.1-9.9 Total Protein 6.5 GM/DL 6.2-8.1 Albumin 4.1 GM/DL 3.2-5.2 Globulin 2.4 GM/DL 2-4 Albumin/Globulin Ratio 1.7 1-3 Bilirubin Total 0.8 mg/dL 0.4-1.5 60 Alkaline Phosphatase 71 U/L 30-110 Alt (SGPT) 42 U/L 14-54 Ast (Sgot) 43 U/L High 12-42 eGFR Non- 34.5 > 60 eGFR 44.4 > 60 61 Lipid Profile 10/17/2010 [facility] Triglyceride 105 mg/dL 40 -200 (Trig/Chol/HDL) [address] [place], [place] [address] [phone] Cholesterol 153 mg/dL Less Than 200 62 High Density Lipoprotein 43 mg/dL 40-60 63 Cholesterol/HDL Ratio 3.56 AVERAGE 1-4.44 Low Density Lipoprotein 89 mg/dL Less Than 100 64 Vitamin D, 25 06/16/2010 [facility] 25-Hydroxy Vitamin <4.0 ng/ mL () Hydroxy [address] [facility] ([place] [place] D2 [place] [address] [phone] 25-Hydroxy Vitamin D3 43 ng/mL () 25-Hydroxy Vitamin D Total 43 ng/mL () 65 Immunofixation 06/01/2010 [facility] Albumin 3.13 GM/DL 3.0- 4.35 (Electro) Serum [address] [place] [address] [phone] Alpha 1 0.18 GM/DL 0.09-0.33 Alpha 2 0.92 GM/DL 0.59-1.18 Beta 0.87 GM/DL 0.68-1.02 Gamma 1.10 GM/DL 0.76-1.60 Albumin % 50.5 % 46-63 Alpha 1 % 2.9 % 1.2-5.3 Alpha 2 % 14.8 % 9-17 Beta % 14.0 % 10-16 Gamma % 17.7 % 12-22 A/G Ratio 1.0 0.9-2 Total Protein 6.2 GM/DL 6.2-8.1 Spep Comments (SEE NOTE) 66 Serum Immunofixation (SEE NOTE) 67 Laboratory test 06/01/2010 [facility] Hemoglobin A1c 5.9 % Less Than [address] [facility] ([place] [place]) 6.0 [place] [address] [phone] Lyme Disease Serology Negative Negative 69 Ssa/SSB 06/01/2010 [facility] Ssa NEGATIVE Negative [address] [place] [address] [phone] SSB NEGATIVE Negative CBC With 06/01/2010 [facility] White Blood 4.7 CUMM Low 4.8- 10.8 Electronic Diff [address] [place] [address] [phone] Red Cell Count 3.96 CUMM Low 4.2-5.4 Hemoglobin 12.7 g/dL 12.0-16.0 Hematocrit 36 % 35-47 Mean Corpuscular Volume 91 um3 79-97 Mean Corpuscular Hemoglob 32 pg High 27-31 Mean Corpuscular HGB Cone 35 g/dL 32-36 Redcell Distribution WDTH 13 % 10.5-15 Platelet Count 212 CUMM 150-450 Mean Platelet Volume 7.2 um3 Low 7.4-10.4 Gran % 53.4 % 38-83 Lymph % 30.5 % 25-47 Mononuclear % 10.5 % High 1-9 Eosinophil % 4.8 % 0-6 Basophil % 0.8 % 0-2 Abs Lymphs 1.4 1.0-4.8 Abs Mononuclear 0.5 0-0.8 Absolute Neutrophil Count 2.5 1.5-7.7 Abs Eosinophils 0.2 0-0.6 Abs Basophils 0 0-0.2 Lipid Profile 06/01/2010 [facility] Triglyceride 110 mg/dL 40 -200 (Trig/Chol/HDL) [address] [place] [address] [phone] Cholesterol 176 mg/dL Less Than 200 70 High Density Lipoprotein 45 mg/dL 40-60 71 Cholesterol/HDL Ratio 3.91 AVERAGE 1-4.44 Low Density Lipoprotein 109 mg/dL High Less Than 100 72 Comp Metabolic Panel 06/01/2010 [facility] Sodium 136 mmol/L 135-[address] [place] [address] [phone] Potassium 4.5 mmol/L 3.5-5.0 Chloride 105 mmol/L 101-111 Co2 (Carbon Dioxide) 25.0 mmol/L 22-32 Anion Gap 6.0 mmol/L 2-11 73 Glucose 86 mg/dL 70-100 BUN 33 mg/dL High 6-24 Creatinine 0.90 mg/dL 0.50-1.40 One Over Creatinine 1.10 BUN/Creatinine Ratio 36.7 High 8-20 Calcium 10.1 mg/dL High 8.1-9.9 Total Protein 6.4 GM/DL 6.2-8.1 Albumin 4.0 GM/DL 3.2-5.2 Globulin 2.4 GM/DL 2-4 Albumin/Globulin Ratio 1.7 1-3 Bilirubin Total 0.6 mg/dL 0.4-1.5 74 Alkaline Phosphatase 65 U/L 30-110 Alt (SGPT) 40 U/L 14-54 Ast (Sgot) 39 U/L 12-42 eGFR Non- 66.4 > 60 eGFR 80.3 > [address] [facility] 06/01/2010 [facility] TSH 2.33 MIU/ML 0.34- 5.60 Panel [address] [place] [address] [phone] Basic Metabolic 09/17/2009 [facility] Sodium 134 mmol/L Low 135-145 Panel [address] [place] [address] [phone] Potassium 4.5 mmol/L 3.5-5.0 Chloride 103 mmol/L 101-111 Co2 (Carbon Dioxide) 25.0 mmol/L 22-32 Anion Gap 6.0 mmol/L 2-11 76 Glucose 102 mg/dL High 70-100 77 BUN 22 mg/dL 6-24 Creatinine 0.90 mg/dL 0.50-1.40 One Over Creatinine 1.10 BUN/Creatinine Ratio 24.4 High 8-20 Calcium 10.0 mg/dL High 8.1-9.9 78 eGFR Non- 66.4 > 60 eGFR 80.3 > 60 79 Laboratory test 09/11/2009 [facility] Vitamin B12 689 pg/mL 180-914 finding [address] [place] [address] [phone] Folic Acid > 20.0 NG/ML High 2-16 Syphilis IgG NON-REACTIVE Nonreactive 80 Polnia 09/11/2009 [facility] Antinuclear AB NEGATIVE Negative [address] [place] [address] [phone] Reviewed By (SEE NOTE) 81 Basic Metabolic Panel 09/08/2009 [facility] Sodium 135 mmol/L 135-145 [address] [place] [address] [phone] Potassium 4.6 mmol/L 3.5-5.0 Chloride 104 mmol/L 101-111 Co2 (Carbon Dioxide) 26.0 mmol/L 22-32 Anion Gap 5.0 mmol/L 2-11 82 Glucose 79 mg/dL 70-100 83 BUN 29 mg/dL High 6-24 Creatinine 0.90 mg/dL 0.50-1.40 One Over Creatinine 1.10 BUN/Creatinine Ratio 32.2 High 8-20 Calcium 10.4 mg/dL High 8.1-9.9 84 eGFR Non- 66.4 > 60 eGFR 80.3 > 60 85 Laboratory 08/31/2009 [facility] Syphilis NON-REACTIVE Nonreactive 86 test finding [address] [facility] ([place], [place]) [place] [address] [phone] Polina (Antinuclear Antibodies) NEGATIVE Negative Vitamin B12 And 08/31/2009 [facility] Vitamin B12 590 pg/mL 180-914 Folate Serum [address] [place] [address] [phone] Folic Acid > 20.0 NG/ML High 2-16 Basic Metabolic 06/18/2009 [facility] Sodium 129 mmol/L Low 135-145 Panel [address] [place] [address] [phone] Potassium 4.4 mmol/L 3.5-5.0 Chloride 101 mmol/L 101-111 Co2 (Carbon Dioxide) 23.0 mmol/L 22-32 Anion Gap 5.0 mmol/L 2-11 87 Glucose 89 mg/dL 70-100 88 BUN 29 mg/dL High 6-24 Creatinine 0.89 mg/dL 0.50-1.40 One Over Creatinine 1.10 BUN/Creatinine Ratio 32.6 High 8-20 Calcium 10.0 mg/dL High 8.1-9.9 89 eGFR Non- 67.4 > 60 eGFR 81.6 > 60 90 Laboratory test 06/18/2009 [facility] Calcium 5.49 mg/dL High 4.65-5.[address] [place] [address] [phone] TSH 1.73 MIU/ML 0.34-5.60 Vitamin D, 25 06/11/2009 [facility] 25-Hydroxy Vitamin <4.0 ng/ mL () Hydroxy [address] [address] [place] [address] [phone] 25-Hydroxy Vitamin D3 47 ng/mL () 25-Hydroxy Vitamin D Total 47 ng/mL () 91 Vitamin D 1,25 06/11/2009 [facility] Vitamin D, 1,25 37 pg/mL 18-78 92 And Vitamin [address] Dihydroxy D,2 [place] [address] [phone] Lipid Profile 06/11/2009 [facility] Triglyceride 78 mg/dL 40- 200 (Trig/Chol/HDL [address] ) [place] [address] [phone] Cholesterol 157 mg/dL Less Than 200 93 High Density Lipoprotein 37 mg/dL Low 40-60 94 Cholesterol/HDL Ratio 4.24 AVERAGE 1-4.44 Low Density Lipoprotein 104 mg/dL High Less Than 100 95 Comp Metabolic Panel 06/11/2009 [facility] Sodium 134 mmol/L Low 135-[address] [place] [address] [phone] Potassium 5.3 mmol/L High 3.5-5.0 Chloride 100 mmol/L Low 101-111 Co2 (Carbon Dioxide) 26.0 mmol/L 22-32 Anion Gap 8.0 mmol/L 2-11 96 Glucose 82 mg/dL 70-100 97 BUN 31 mg/dL High 6-24 Creatinine 1.10 mg/dL 0.50-1.40 One Over Creatinine 0.90 BUN/Creatinine Ratio 28.2 High 8-20 Calcium 10.6 mg/dL High 8.1-9.9 98 Total Protein 6.7 GM/DL 6.2-8.1 Albumin 4.0 GM/DL 3.2-5.2 Globulin 2.7 GM/DL 2-4 Albumin/Globulin Ratio 1.5 1-3 Bilirubin Total 0.7 mg/dL 0.4-1.5 99 Alkaline Phosphatase 82 U/L 30-110 Alt (SGPT) 49 U/L 14-54 Ast (Sgot) 42 U/L 12-42 eGFR Non- 52.8 > 60 eGFR 63.9 > 60 100 Lipid Panel - 06/11/2009 [facility] CPK (Creatine 278 U/L High 0-[address] Kin[place]) [place] [address] [phone] Laboratory test 03/20/2009 [facility] Erythrocyte Sed 29 MM/HR 0-[address] [place] [address] [phone] Endomysial Abs Negative Negative 101 Transglutaminase Iga Autoab <1.2 U/mL <4.0 102 CBC With 03/20/2009 [facility] White Blood 5.8 CUMM 4.8-10.8 Electronic Diff [address] [place] [address] [phone] Red Cell Count 4.29 CUMM 4.2-5.4 Hemoglobin 13.2 g/dL 12.0-16.0 Hematocrit 39 % 35-47 Mean Corpuscular Volume 91 um3 79-97 Mean Corpuscular Hemoglob 31 pg 27-31 Mean Corpuscular HGB Cone 34 g/dL 32-36 Redcell Distribution WDTH 13 % 10.5-15 Platelet Count 245 CUMM 150-450 Mean Platelet Volume 7.5 um3 7.4-10.4 Gran % 66.1 % 38-83 Lymph % 21.9 % Low 25-47 Mononuclear % 7.4 % 1-9 Eosinophil % 4.4 % 0-6 Basophil % 0.2 % 0-2 Abs Lymphs 1.3 1.0-4.8 Abs Mononuclear 0.4 0-0.8 Absolute Neutrophil Count 3.8 1.5-7.7 Abs Eosinophils 0.3 0-0.6 Abs Basophils 0 0-0.2 Laboratory test 03/20/2009 [facility] Ferritin 80 NG/ML 11.0- [address] [place] [address] [phone] Vitamin B12 563 pg/mL 180-914 Lipid Profile 03/20/2009 [facility] Triglyceride 141 mg/dL 40 -200 (Trig/Chol/HDL) [address] [place] [address] [phone] Cholesterol 147 mg/dL Less Than 200 103 High Density Lipoprotein 26 mg/dL Low 40-60 104 Cholesterol/HDL Ratio 5.65 AVERAGE High 1-4.44 Low Density Lipoprotein 93 mg/dL Less Than 100 105 Comp Metabolic Panel 03/20/2009 [facility] Sodium 135 mmol/L 135-[address] [place] [address] [phone] Potassium 4.2 mmol/L 3.5-5.0 Chloride 109 mmol/L 101-111 Co2 (Carbon Dioxide) 23.0 mmol/L 22-32 Anion Gap 3.0 mmol/L 2-11 106 Glucose 95 mg/dL 70-100 107 BUN 26 mg/dL High 6-24 Creatinine 0.90 mg/dL 0.50-1.40 One Over Creatinine 1.10 BUN/Creatinine Ratio 28.9 High 8-20 Calcium 9.9 mg/dL 8.1-9.9 108 Total Protein 6.5 GM/DL 6.2-8.1 Albumin 3.8 GM/DL 3.2-5.2 Globulin 2.7 GM/DL 2-4 Albumin/Globulin Ratio 1.4 1-3 Bilirubin Total 0.6 mg/dL 0.4-1.5 109 Alkaline Phosphatase 79 U/L 30-110 Alt (SGPT) 59 U/L High 14-54 Ast (Sgot) 41 U/L 12-42 eGFR Non- 66.6 > 60 eGFR 80.6 > 60 110 Lipid Panel - 03/20/2009 [facility] CPK (Creatine 241 U/L High 0-170 [facility] [address] Kin[place]) [place] [address] [phone] 1 SEE RESULT BELOW Name: ABHISHEK MERLOS : [address]: Dominic Tam MD Acct: [id number] Unit: [id number] AGE: 78 Location: ENDO Re10/02/18 SEX: F Status: REG REF SPEC: [id number] NELA: 10/02/18-[address] [facility] [address]: Dominic Tam MD REQ: [id number] RECD: 10/02/181812 STATUS: JESSEE LAU DR: Val Abbasi MD _ SOURCE: GAS ANTRUM SPDESC: ORDERED: Clotest Procedure Result Reported Site Clotest Final 10/03/18- 740 ML Clotest Negative * ML - Main Lab . END OF REPORT DEPARTMENT OF PATHOLOGY, [address] [place] [address] Hussain Camilo M.D. Director [facility] # [id number] 2 SEE RESULT BELOW Name: ABHISHEK MERLOS : [address]: Dominic Tam MD Acct: [id number] Unit: [id number] AGE: 78 Location: ENDO Re10/02/18 SEX: F Status: DEP REF SPEC: [id number] NELA: 10/02/18-[address] [facility] [address]: Dominic Tam MD REQ: [id number] RECD: 10/02/18 STATUS: PADDY LAU DR: Val Levin MD _ ORDERED: LEVEL 4/2 FINAL DIAGNOSIS 1. Small bowel, third portion of duodenum, biopsy: -- Small bowel mucosa with normal villous architecture and no significant pathologic abnormality. 2. Stomach, greater curvature, biopsy: -- Gastric oxyntic gland mucosa with no significant pathologic abnormality. CLINICAL HISTORY Weight loss; itching POST-OPERATIVE DIAGNOSIS EGD: larynx - NGD; esophagus - normal esophagogastric 41 cm snug; stomach - normal; FERNANDO test and biopsy; duodenum - biopsy (3); conclusions: normal EGD; weight loss - biopsy pending GROSS DESCRIPTION 1. The specimen is received in formalin labeled, Biopsy Third Portion Duodenum, and consists of a 0.6 x 0.5 x 0.2 cm aggregate of nuno-pink irregular soft tissue fragments which is submitted entirely in one cassette. 2. The specimen is received in formalin labeled, Biopsy Gastric Greater Curvature, and consists of two nuno-pink irregular soft tissue fragments averaging 0.5 x 0.3 x 0.1 cm which are submitted entirely in one cassette. CONTINUED ON NEXT PAGE DEPARTMENT OF PATHOLOGY, [facility] [address] [place] [address] Hussain Camilo M.D. Director [facility] # [id number] RUN DATE: 10/03/18 [facility] LAB LIVE PAGE 2 Patient: ABHISHEK MERLOS [id number] (Continued) GROSS DESCRIPTION (Continued) Signed by and Reported on: Hussain Camilo MD 1341 END OF REPORT DEPARTMENT OF PATHOLOGY, [facility] [address] [place], [place] [address] Hussain Camilo M.D. Director [facility] # [id number] 3 FASTING 4 FASTING 5 REFERENCE VALUE <100 Reference ranges valid for >=8 hour fast. Test Performed by: [facility] [place] [address] 6 Impaired renal or hepatic function or treatment with proton pump inhibitors may result in artifactual elevations of Chromogranin A. A reagent change was implemented on date 09/19/2017. Measured chromogranin A concentrations were on average 7% higher using the new reagent formulation. However, for individual specimens the variation may exceed 7%. Upon request, samples previously submitted within the last six months can be retested using the new reagent formulation. ADDITIONAL INFORMATION This test was developed and its performance characteristics determined by [facility] in a manner consistent with CLIA requirements. This test has not been cleared or approved by the [place] Food and Drug Administration. The testing method is a homogeneous time-resolved immunofluorescent assay. Values obtained with different assay methods or kits may be different and cannot be used interchangeably. Test results cannot be interpreted as absolute evidence for the presence or absence of malignant disease. Test Performed by: [facility] - [address] [id number] ADDITIONAL INFORMATION Proven glucagonomas have analyte concentrations 10 fold or more above the reference range. This test was developed and its performance characteristics determined by [facility] in a manner consistent with CLIA requirements. This test has not been cleared or approved by the [place]. Food and Drug Administration. Test Performed by: [facility] - [address] [id number] ADDITIONAL INFORMATION This test was developed and its performance characteristics determined by [facility] in a manner consistent with CLIA requirements. This test has not been cleared or approved by the U.S. Food and Drug Administration. Test Performed by: [facility] [place] [address] 9 ADDITIONAL INFORMATION This test has been modified from the information systems manager's instructions. Its performance characteristics were determined by [facility] in a manner consistent with CLIA requirements. This test has not been cleared or approved by the U.S. Food and Drug Administration. 10 Test Performed by: [address] [address] 11 Total 25-Hydroxyvitamin D2 and D3 (25-OH-VitD) <10 ng/mL (severe deficiency) 10-19 ng/mL (mild to moderate deficiency) 20-50 ng/mL (optimum levels) 51-80 ng/mL (increased risk of hypercalciuria) >80 ng/mL (toxicity possible) 12 Because ethnic data is not always readily available, this report includes an eGFR for both -Americans and non- Americans. The National Kidney Disease Education Program (NKDEP) does not endorse the use of the MDRD equation for patients that are not between the ages of 18 and 70, are , have extremes of body size, muscle mass, or nutritional status, or are non- or non-. According to the National Kidney Foundation, irrespective of diagnosis, the stage of the disease is based on the level of kidney function: Stage Description GFR(mL/min/1.73 m(2)) 1 Kidney damage with normal or decreased GFR 90 2 Kidney damage with mild decrease in GFR 60-89 3 Moderate decrease in GFR 30-59 4 Severe decrease in GFR 15-29 5 Kidney failure <15 (or dialysis) 13 Test Performed by: [facility] [address], [place] [address] Hussain Camilo M.D. Director of Laboratory 14 Test Performed by: [place] [id number] TESTS RESULT FLAG UNITS REFERENCE Folate, RBC Folate, Hemolysate 369.9 ng/mL Not Estab. Hematocrit 36.0 % 34.0 - 46.6 01 Folate, RBC 1028 ng/mL >498 Test Report Date: 08/02/2018;08/01/[address] [address] Dir: Clemencia Hi MD For inquiries, the physician may contact Branch: [phone] Lab: [phone] 16 SEE RESULT BELOW Name: ABHISHEK MERLOS : [address]: Tom Loja MD Acct: [id number] Unit: [id number] AGE: 77 Location: Re10/25/17 SEX: F Status: REG REF SPEC: [id number] NELA: 10/25/170950 [facility] DR: Tom Loja MD REQ: [id number] RECD: 10/25/171158 STATUS: PADDY LAU DR: Holden Grey MD _ ORDERED: FNA-IMG GUID BX, LEVEL 4 FINAL DIAGNOSIS Breast, right, Ultrasound guided, fine needle aspiration: -- Benign? acellular viscus clear fluid compatible with prosthetic implant gel. -- No evidence of significant inflammation, lymphoproliferative disorder or epithelial neoplasia identified. BREAST RIGHT - US GUIDED FINE NEEDLE ASPIRATION CLINICAL HISTORY Bilateral mastectomy. GROSS DESCRIPTION FNA times 2 passes. Gelatinous fluid was obtained. 1- alcohol fixed slides(s) Needle rinse in formalin solution for cell block. Needle rinse in CytoLyt solution for thin layer non-narcotics and vice detective test. Signed by and Reported on: Hussain Camilo MD 1440 END OF REPORT DEPARTMENT OF PATHOLOGY, [address] [place] [address] Hussain Camilo M.D. Director [facility] # [id number] 17 Acute inflammation: >10.00 18 Desirable <150 Borderline high 150-199 High 200-499 Very High >500 19 Desirable <200 Borderline high 200-239 High >239 20 Low <40 Desirable: 40-60 High: >60 21 Desirable: <100 mg/dL Near Optimal: 100-129 mg/dL Borderline High: 130-159 mg/dL High: 160-189 mg/dL Very High: >189 mg/dL 22 Because ethnic data is not always readily available, this report includes an eGFR for both -Americans and non- Americans. The National Kidney Disease Education Program (NKDEP) does not endorse the use of the MDRD equation for patients that are not between the ages of 18 and 70, are , have extremes of body size, muscle mass, or nutritional status, or are non- or non-. According to the National Kidney Foundation, irrespective of diagnosis, the stage of the disease is based on the level of kidney function: Stage Description GFR(mL/min/1.73 m(2)) 1 Kidney damage with normal or decreased GFR 90 2 Kidney damage with mild decrease in GFR 60-89 3 Moderate decrease in GFR 30-59 4 Severe decrease in GFR 15-29 5 Kidney failure <15 (or dialysis) 23 Draw prior to AM dose of medication 24 Draw prior to AM dose of medication 25 Therapeutic target for the treatment of diabetes Mellitus patients is <7% HBA1C, and in selective patients <6.0%.Please refer to [place] [employer] Diabetic care guidelines for further information. 26 Normal Range 180 to 914 Indeterminate Range 145 to 180 Deficient Range <145 27 Draw prior to AM dose of medication 28 RESULT: No apparent monoclonal protein on serum electrophoresis. Test Performed by: [address] [address] Furnace Fitter: Chris Zuniga II, M.D., Ph.D. 29 Reference Range and Interpretation: TnI (ng/mL) Interpretation Less Than 0.03 ng/mL Not supportive of diagnosis of CA 0.03 - 0.50 ng/mL Indeterminate: suggest serial studies if clinically indicated. Greater than 0.5 ng/mL Consistent with diagnosis of CA 30 Because ethnic data is not always readily available, this report includes an eGFR for both -Americans and non- Americans. The National Kidney Disease Education Program (NKDEP) does not endorse the use of the MDRD equation for patients that are not between the ages of 18 and 70, are , have extremes of body size, muscle mass, or nutritional status, or are non- or non-. According to the National Kidney Foundation, irrespective of diagnosis, the stage of the disease is based on the level of kidney function: Stage Description GFR(mL/min/1.73 m(2)) 1 Kidney damage with normal or decreased GFR 90 2 Kidney damage with mild decrease in GFR 60-89 3 Moderate decrease in GFR 30-59 4 Severe decrease in GFR 15-29 5 Kidney failure <15 (or dialysis) 31 Desirable <150 Borderline high 150-199 High 200-499 Very High >500 32 Desirable <200 Borderline high 200-239 High >239 33 Low <40 Desirable: 40-60 High: >60 34 Desirable: <100 mg/dL Near Optimal: 100-129 mg/dL Borderline High: 130-159 mg/dL High: 160-189 mg/dL Very High: >189 mg/dL 35 Because ethnic data is not always readily available, this report includes an eGFR for both -Americans and non- Americans. The National Kidney Disease Education Program (NKDEP) does not endorse the use of the MDRD equation for patients that are not between the ages of 18 and 70, are , have extremes of body size, muscle mass, or nutritional status, or are non- or non-. According to the National Kidney Foundation, irrespective of diagnosis, the stage of the disease is based on the level of kidney function: Stage Description GFR(mL/min/1.73 m(2)) 1 Kidney damage with normal or decreased GFR 90 2 Kidney damage with mild decrease in GFR 60-89 3 Moderate decrease in GFR 30-59 4 Severe decrease in GFR 15-29 5 Kidney failure <15 (or dialysis) 36 FASTING 37 Desirable <150 Borderline high 150-199 High 200-499 Very High >500 38 Desirable <200 Borderline high 200-239 High >239 39 Low <40 Desirable: 40-60 High: >60 40 Desirable <100 Near Optimal 100-129 Borderline high 130-159 High 160-189 Very High >189 41 RUN DATE: 08/28/13 [facility] LAB LIVE PAGE 1 RUN TIME: [address] [place], [place] [address] Specimen Inquiry Name: ABHISHEK MERLOS : [address]: Dominic Tam MD Acct: [id number] Unit: [id number] AGE: 73 Location: ENDO Re08/27/13 SEX: F Status: REG REF SPEC: [id number] NELA: 08/27/13- SUBM DR: Dominic Tam MD REQ: [id number] RECD: 08/27/131158 STATUS: PADDY LAU DR: Hector Wheeler III, MD _ ORDERED: LEVEL IV/2 FINAL DIAGNOSIS 1. Colon, right, biopsies: A. Large intestinal mucosa with mild architectural disorder. B. No evidence of microscopic/lymphocytic colitis, collagenous colitis, or other inflammatory bowel processes are identified. 2. Colon, sigmoid, biopsies: A. Large intestinal mucosa with mild architectural disorder. B. No evidence of microscopic/lymphocytic colitis, collagenous colitis, or other inflammatory bowel processes are identified. CLINICAL HISTORY Diarrhea for screening colonoscopy. Increased calcium, positive family history. PRE-OPERATIVE DIAGNOSIS Rule out microscopic colitis POST-OPERATIVE DIAGNOSIS Screening colonoscopy to cecum with ease, excellent prep. All negative. Conclusions: 1. Normal colonoscopy, 2. Internal hemorrhoids, 3. Diarrhea?, 4. Increased calcium. GROSS DESCRIPTION 1. The specimen is received in formalin labeled Abhishek Merlos, Biopsy Right Colon, Rule Out Microscopic Colitis and consists of two, nuno, irregular, soft tissue fragments measuring 0.4 x 0.1 x 0.1 cm. and 0.4 x 0.2 x 0.1 cm. Submitted entirely, one cassette. CONTINUED ON NEXT PAGE * ML=Testing performed at Main Lab DEPARTMENT OF PATHOLOGY, [facility] [address] [place], [place] [address] Hussain Camilo M.D. Director [facility] Permit #[id number] RUN DATE: 08/28/13 [facility] LAB LIVE PAGE 2 RUN TIME: 3571 [facility] [email or web address] [place], [place] [address] Specimen Inquiry Patient: ABHISHEK MERLOS [id number] (Continued) GROSS DESCRIPTION (Continued) GROSS DESCRIPTION (Continued) 2. The specimen is received in formalin labeled Abhishek Merlos, Biopsy Sigmoid Colon Rule Out Microscopic Colitis and consists of two, nuno-white, irregular, soft tissue fragments measuring 0.3 x 0.2 x 0.2 cm. and 0.8 x 0.2 x 0.1 cm. Submitted entirely, one cassette. Signed (signature on file) Hussain Camilo MD 1341 END OF REPORT * ML=Testing performed at Main Lab DEPARTMENT OF PATHOLOGY, [address] [place] [address] Hussain Camilo M.D. Director [facility] Permit #[id number] 42 Because ethnic data is not always readily available, this report includes an eGFR for both -Americans and non- Americans. The National Kidney Disease Education Program (NKDEP) does not endorse the use of the MDRD equation for patients that are not between the ages of 18 and 70, are , have extremes of body size, muscle mass, or nutritional status, or are non- or non-. According to the National Kidney Foundation, irrespective of diagnosis, the stage of the disease is based on the level of kidney function: Stage Description GFR(mL/min/1.73 m(2)) 1 Kidney damage with normal or decreased GFR 90 2 Kidney damage with mild decrease in GFR 60-89 3 Moderate decrease in GFR 30-59 4 Severe decrease in GFR 15-29 5 Kidney failure <15 (or dialysis) 43 Because ethnic data is not always readily available, this report includes an eGFR for both -Americans and non- Americans. The National Kidney Disease Education Program (NKDEP) does not endorse the use of the MDRD equation for patients that are not between the ages of 18 and 70, are , have extremes of body size, muscle mass, or nutritional status, or are non- or non-. According to the National Kidney Foundation, irrespective of diagnosis, the stage of the disease is based on the level of kidney function: Stage Description GFR(mL/min/1.73 m(2)) 1 Kidney damage with normal or decreased GFR 90 2 Kidney damage with mild decrease in GFR 60-89 3 Moderate decrease in GFR 30-59 4 Severe decrease in GFR 15-29 5 Kidney failure <15 (or dialysis) 44 RESULT: No apparent monoclonal protein on serum electrophoresis. Test Performed by: [facility] [place] [address] Furnace Fitter: Grant Gaming III, M.D. 45 RUN DATE: 07/24/12 [facility] LAB LIVE PAGE 1 RUN TIME: [address] [place], [place] [address] Specimen Inquiry Name: ABHISHEK MERLOS : [address]: Dominic Tam MD Acct: [id number] Unit: [id number] AGE: 72 Location: ENDO Re07/23/12 SEX: F Status: REG REF SPEC: [id number] NELA: 07/23/12- SUBM DR: Dominic Tam MD REQ: [id number] RECD: 07/23/12 STATUS: PADDY LAU DR: Hector Wheeler III, MD _ ORDERED: LEVEL IV FINAL DIAGNOSIS Small bowel, distal duodenum, biopsy: Small bowel mucosa with normal villous architecture and no significant pathologic abnormality. CLINICAL HISTORY Iron deficiency anemia POST-OPERATIVE DIAGNOSIS Minimal gastritis otherwise normal EGD; anemia GROSS DESCRIPTION The specimen is received in formalin labelled Abhishek Merlos, Distal Duodenal Biopsy, and consists of a nuno, soft tissue fragment measuring 0.3 x 0.2 x 0.2 cm. in aggregate. Submitted entirely, one cassette. Signed (signature on file) Hussain Camilo MD 1349 END OF REPORT * ML=Testing performed at Main Lab DEPARTMENT OF PATHOLOGY, [facility] [address] [place] [id number] Hussain Camilo M.D. Director [facility] Permit #[id number] RUN DATE: 07/23/12 [facility] LAB LIVE PAGE 1 RUN TIME: 1158 [facility] [email or web address] [place], [place] [address] Specimen Inquiry Name: ABHISHEK MERLOS : [address]: Dominic Tam MD Acct: [id number] Unit: [id number] AGE: 72 Location: ENDO Re07/23/12 SEX: F Status: REG REF SPEC: [id number] NELA: 07/23/12-[address] [facility] [address]: Dominic Tam MD REQ: [id number] RECD: 07/23/12 STATUS: COMP STEPHENIE DR: Hector Wheeler III, MD _ SOURCE: STOOL SPDESC: ORDERED: Hemoccult Procedure Result Verified Site Stool Specimen Description Final 07/23/12- 1158 ML Test not performed Stool Occult Blood Final 07/23/12- 1158 ML Stool Occult Blood Negative END OF REPORT * ML=Testing performed at Main Lab DEPARTMENT OF PATHOLOGY, [facility] [address] [place], [place] [address] Hussain Camilo M.D. Director [facility] Permit #[id number] RUN DATE: 07/24/12 [facility] LAB LIVE PAGE 1 RUN TIME: 08 [facility] [email or web address] [place], [place] [address] Specimen Inquiry Name: ABHISHEK MERLOS : [address]: Dominic Tam MD Acct: [id number] Unit: [id number] AGE: 72 Location: ENDO Re07/23/12 SEX: F Status: REG REF SPEC: [id number] NELA: 07/23/12-[address]: Dominic Tam MD REQ: [id number] RECD: 07/23/12 STATUS: JESSEE LAU DR: Hector Wheeler III, MD _ SOURCE: JESSE [facility]AVAL[facility]: ORDERED: Clotest Procedure Result Verified Site Clotest Final 07/24/12- 807 ML Clotest Negative END OF REPORT * ML=Testing performed at Main Lab DEPARTMENT OF PATHOLOGY, [address] [place] [address] Hussain Camilo M.D. Director [facility] Permit #[id number] 48 Because ethnic data is not always readily available, this report includes an eGFR for both -Americans and non- Americans. The National Kidney Disease Education Program (NKDEP) does not endorse the use of the MDRD equation for patients that are not between the ages of 18 and 70, are , have extremes of body size, muscle mass, or nutritional status, or are non- or non-. According to the National Kidney Foundation, irrespective of diagnosis, the stage of the disease is based on the level of kidney function: Stage Description GFR(mL/min/1.73 m(2)) 1 Kidney damage with normal or decreased GFR 90 2 Kidney damage with mild decrease in GFR 60-89 3 Moderate decrease in GFR 30-59 4 Severe decrease in GFR 15-29 5 Kidney failure <15 (or dialysis) 49 HDL Interpretation: Undesirable: High Risk: Less than 40 MG/DL Desirable: Low Risk: Greater than 60 MG/DL 50 LDL Interpretation: Low Risk Optimal Level: LDL Less than 100 MG/DL Near or Above Optimal: LDL 100-129 MG/DL Borderline High Risk: LDL 130-159 MG/DL High Risk: LDL 160-189 MG/DL Very High Risk: LDL Greater than 189 MG/DL 51 Anion gap measurement may be of limited value in the presence of any alkalosis, especially in a combined acid base disorder. . 52 Because ethnic data is not always readily available, this report includes an eGFR for both -Americans and non- Americans. The National Kidney Disease Education Program (NKDEP) does not endorse the use of the MDRD equation for patients that are not between the ages of 18 and 70, are , have extremes of body size, muscle mass, or nutritional status, or are non- or non-. According to the National Kidney Foundation, irrespective of diagnosis, the stage of the disease is based on the level of kidney function: Stage Description GFR(mL/min/1.73 m(2)) 1 Kidney damage with normal or decreased GFR 90 2 Kidney damage with mild decrease in GFR 60-89 3 Moderate decrease in GFR 30-59 4 Severe decrease in GFR 15-29 5 Kidney failure <15 (or dialysis) 53 Anion gap measurement may be of limited value in the presence of any alkalosis, especially in a combined acid base disorder. . 54 A metabolite of Naproxen, O-desmethylnaproxen, has been shown to interfere with the Jendrassik-Roddy method for measuring total bilirubin. Samples from patients who have taken Naproxen have shown spurious elevation in total bilirubin levels. 55 Because ethnic data is not always readily available, this report includes an eGFR for both -Americans and non- Americans. The National Kidney Disease Education Program (NKDEP) does not endorse the use of the MDRD equation for patients that are not between the ages of 18 and 70, are , have extremes of body size, muscle mass, or nutritional status, or are non- or non-. According to the National Kidney Foundation, irrespective of diagnosis, the stage of the disease is based on the level of kidney function: Stage Description GFR(mL/min/1.73 m(2)) 1 Kidney damage with normal or decreased GFR 90 2 Kidney damage with mild decrease in GFR 60-89 3 Moderate decrease in GFR 30-59 4 Severe decrease in GFR 15-29 5 Kidney failure <15 (or dialysis) 56 CHOLESTEROL INTERPRETATION: Desirable: Less than 200 MG/DL Borderline-High Risk: 200-239 MG/DL High-Risk: 240 MG/DL and over 57 HDL INTERPRETATION: Undesirable: High Risk: Less than 40 MG/DL Desirable: Low Risk: Greater than 60 MG/DL 58 LDL INTERPRETATION: Low Risk Optimal Level: LDL Less than 100 MG/DL Near or Above Optimal: LDL 100-129 MG/DL Borderline High Risk: LDL 130-159 MG/DL High Risk: LDL 160-189 MG/DL Very High Risk: LDL Greater than 189 MG/DL 59 Anion gap measurement may be of limited value in the presence of any alkalosis, especially in a combined acid base disorder. . 60 A metabolite of Naproxen, O-desmethylnaproxen, has been shown to interfere with the Jendrassik-[place] method for measuring total bilirubin. Samples from patients who have taken Naproxen have shown spurious elevation in total bilirubin levels. 61 Because ethnic data is not always readily available, this report includes an eGFR for both -Americans and non- Americans. The National Kidney Disease Education Program (NKDEP) does not endorse the use of the MDRD equation for patients that are not between the ages of 18 and 70, are , have extremes of body size, muscle mass, or nutritional status, or are non- or non-. According to the National Kidney Foundation, irrespective of diagnosis, the stage of the disease is based on the level of kidney function: Stage Description GFR(mL/min/1.73 m(2)) 1 Kidney damage with normal or decreased GFR 90 2 Kidney damage with mild decrease in GFR 60-89 3 Moderate decrease in GFR 30-59 4 Severe decrease in GFR 15-29 5 Kidney failure <15 (or dialysis) 62 CHOLESTEROL INTERPRETATION: Desirable: Less than 200 MG/DL Borderline-High Risk: 200-239 MG/DL High-Risk: 240 MG/DL and over 63 HDL INTERPRETATION: Undesirable: High Risk: Less than 40 MG/DL Desirable: Low Risk: Greater than 60 MG/DL 64 LDL INTERPRETATION: Low Risk Optimal Level: LDL Less than 100 MG/DL Near or Above Optimal: LDL 100-129 MG/DL Borderline High Risk: LDL 130-159 MG/DL High Risk: LDL 160-189 MG/DL Very High Risk: LDL Greater than 189 MG/DL 65 -- REFERENCE VALUE -- 25-HYDROXY D TOTAL (D2+D3) Optimum levels in the normal population are 25-80 Test Performed by: [facility] Dpt of Lab Med and Pathology [address] [place] [address] Furnace Fitter: Grant Gaming III, M.D. 66 NORMAL ELECTROPHORETIC PATTERN. 67 NORMAL SERUM IMMUNOFIXATION ELECTROPHORETIC PATTERN. NO MONOCLONAL PROTEIN DETECTED. 68 THERAPEUTIC TARGET FOR THE TREATMENT OF DIABETES MELLITUS PATIENTS IS <7% HBA1C, AND IN SELECTIVE PATIENTS <6.0%. PLEASE REFER TO [place] DIABETIC CARE GUIDELINES FOR FURTHER INFORMATION. 69 Serologic response to B. burgdorferi infection is not detected, but cannot rule out early infection during which low or undetectable antibody levels to B. burgdorferi may be present. If clinically indicated, a new serum specimen should be submitted in 7-14 days. Test Performed by: [facility] Dpt of Lab Med and Pathology [address] [place] [address] Furnace Fitter: Grant Gaming III, M.D. 70 CHOLESTEROL INTERPRETATION: Desirable: Less than 200 MG/DL Borderline-High Risk: 200-239 MG/DL High-Risk: 240 MG/DL and over 71 HDL INTERPRETATION: Undesirable: High Risk: Less than 40 MG/DL Desirable: Low Risk: Greater than 60 MG/DL 72 LDL INTERPRETATION: Low Risk Optimal Level: LDL Less than 100 MG/DL Near or Above Optimal: LDL 100-129 MG/DL Borderline High Risk: LDL 130-159 MG/DL High Risk: LDL 160-189 MG/DL Very High Risk: LDL Greater than 189 MG/DL 73 Anion gap measurement may be of limited value in the presence of any alkalosis, especially in a combined acid base disorder. . 74 A metabolite of Naproxen, O-desmethylnaproxen, has been shown to interfere with the Jendrassik-Roddy method for measuring total bilirubin. Samples from patients who have taken Naproxen have shown spurious elevation in total bilirubin levels. 75 Because ethnic data is not always readily available, this report includes an eGFR for both -Americans and non- Americans. The National Kidney Disease Education Program (NKDEP) does not endorse the use of the MDRD equation for patients that are not between the ages of 18 and 70, are , have extremes of body size, muscle mass, or nutritional status, or are non- or non-. According to the National Kidney Foundation, irrespective of diagnosis, the stage of the disease is based on the level of kidney function: Stage Description GFR(mL/min/1.73 m(2)) 1 Kidney damage with normal or decreased GFR 90 2 Kidney damage with mild decrease in GFR 60-89 3 Moderate decrease in GFR 30-59 4 Severe decrease in GFR 15-29 5 Kidney failure <15 (or dialysis) 76 Anion gap measurement may be of limited value in the presence of any alkalosis, especially in a combined acid base disorder. . 77 Note change in reference range as of 01/02/08. The change was based on recommendations from the [place] [employer]. 78 Please note change in reference range effective 07 . 79 Because ethnic data is not always readily available, this report includes an eGFR for both -Americans and non- Americans. The National Kidney Disease Education Program (NKDEP) does not endorse the use of the MDRD equation for patients that are not between the ages of 18 and 70, are , have extremes of body size, muscle mass, or nutritional status, or are non- or non-. According to the National Kidney Foundation, irrespective of diagnosis, the stage of the disease is based on the level of kidney function: Stage Description GFR(mL/min/1.73 m(2)) 1 Kidney damage with normal or decreased GFR 90 2 Kidney damage with mild decrease in GFR 60-89 3 Moderate decrease in GFR 30-59 4 Severe decrease in GFR 15-29 5 Kidney failure <15 (or dialysis) 80 Warning: A positive result is not useful for establishing a diagnosis of syphilis. In most situations, such a result may reflect a prior treated infection; a negative result can exclude a diagnosis of syphilis except for incubating or early primary disease. 81 REVIEWED BY HUSSAIN CAMILO MD 82 Anion gap measurement may be of limited value in the presence of any alkalosis, especially in a combined acid base disorder. . 83 Note change in reference range as of 01/02/08. The change was based on recommendations from the [place] [employer]. 84 Please note change in reference range effective 07 . 85 Because ethnic data is not always readily available, this report includes an eGFR for both -Americans and non- Americans. The National Kidney Disease Education Program (NKDEP) does not endorse the use of the MDRD equation for patients that are not between the ages of 18 and 70, are , have extremes of body size, muscle mass, or nutritional status, or are non- or non-. According to the National Kid[employer] Foundation, irrespective of diagnosis, the stage of the disease is based on the level of kidney function: Stage Description GFR(mL/min/1.73 m(2)) 1 Kidney damage with normal or decreased GFR 90 2 Kidney damage with mild decrease in GFR 60-89 3 Moderate decrease in GFR 30-59 4 Severe decrease in GFR 15-29 5 Kidney failure <15 (or dialysis) 86 Warning: A positive result is not useful for establishing a diagnosis of syphilis. In most situations, such a result may reflect a prior treated infection; a negative result can exclude a diagnosis of syphilis except for incubating or early primary disease. 87 Anion gap measurement may be of limited value in the presence of any alkalosis, especially in a combined acid base disorder. . 88 Note change in reference range as of 01/02/08. The change was based on recommendations from the [place] [employer]. 89 Please note change in reference range effective 07 . 90 Because ethnic data is not always readily available, this report includes an eGFR for both -Americans and non- Americans. The National Kidney Disease Education Program (NKDEP) does not endorse the use of the MDRD equation for patients that are not between the ages of 18 and 70, are , have extremes of body size, muscle mass, or nutritional status, or are non- or non-. According to the National Kidney Foundation, irrespective of diagnosis, the stage of the disease is based on the level of kidney function: Stage Description GFR(mL/min/1.73 m(2)) 1 Kidney damage with normal or decreased GFR 90 2 Kidney damage with mild decrease in GFR 60-89 3 Moderate decrease in GFR 30-59 4 Severe decrease in GFR 15-29 5 Kidney failure <15 (or dialysis) 91 -- REFERENCE VALUE -- 25-HYDROXY D TOTAL (D2+D3) Optimum levels in the normal population are 25-80 Test Performed by: [facility] Dpt of Lab Med and Pathology [address] [place] [address] Furnace Fitter: Grant Gaming III, M.D. 92 Test Performed by: [facility] Dpt of Lab Med and Pathology [address] [place] [address] Furnace Fitter: Grant Gaming III, M.D. 93 CHOLESTEROL INTERPRETATION: Desirable: Less than 200 MG/DL Borderline-High Risk: 200-239 MG/DL High-Risk: 240 MG/DL and over 94 HDL INTERPRETATION: Undesirable: High Risk: Less than 40 MG/DL Desirable: Low Risk: Greater than 60 MG/DL 95 LDL INTERPRETATION: Low Risk Optimal Level: LDL Less than 100 MG/DL Near or Above Optimal: LDL 100-129 MG/DL Borderline High Risk: LDL 130-159 MG/DL High Risk: LDL 160-189 MG/DL Very High Risk: LDL Greater than 189 MG/DL 96 Anion gap measurement may be of limited value in the presence of any alkalosis, especially in a combined acid base disorder. . 97 Note change in reference range as of 01/02/08. The change was based on recommendations from the [place] [employer]. 98 Please note change in reference range effective 07 . 99 A metabolite of Naproxen, O-desmethylnaproxen, has been shown to interfere with the [place]-Red Wing method for measuring total bilirubin. Samples from patients who have taken Naproxen have shown spurious elevation in total bilirubin levels. 10 Because ethnic data is not always readily available, 0 this report includes an eGFR for both -Americans and non- Americans. The National Kidney Disease Education Program (NKDEP) does not endorse the use of the MDRD equation for patients that are not between the ages of 18 and 70, are , have extremes of body size, muscle mass, or nutritional status, or are non- or non-. According to the National Kidney Foundation, irrespective of diagnosis, the stage of the disease is based on the level of kidney function: Stage Description GFR(mL/min/1.73 m(2)) 1 Kidney damage with normal or decreased GFR 90 2 Kidney damage with mild decrease in GFR 60-89 3 Moderate decrease in GFR 30-59 4 Severe decrease in GFR 15-29 5 Kidney failure <15 (or dialysis) 10 Analyte Specific Reagent 1 This test was developed and its performance characteristics determined by [facility], [facility]. This test has not been cleared or approved by the U.S. Food and Drug Administration. Test Performed by: [facility] Dpt of Lab Med and Pathology [address] [place] [address] Furnace Fitter: Grant Gaming III, M.D. 10 Test Performed by: 2 [facility] Dpt of Lab Med and Pathology [address] [place] [address] Furnace Fitter: Grant Gaming III, M.D. 10 CHOLESTEROL INTERPRETATION: 3 Desirable: Less than 200 MG/DL Borderline-High Risk: 200-239 MG/DL High-Risk: 240 MG/DL and over 10 HDL INTERPRETATION: 4 Undesirable: High Risk: Less than 40 MG/DL Desirable: Low Risk: Greater than 60 MG/DL 10 LDL INTERPRETATION: 5 Low Risk Optimal Level: LDL Less than 100 MG/DL Near or Above Optimal: LDL 100-129 MG/DL Borderline High Risk: LDL 130-159 MG/DL High Risk: LDL 160-189 MG/DL Very High Risk: LDL Greater than 189 MG/DL 10 Anion gap measurement may be of limited value in the 6 presence of any alkalosis, especially in a combined acid base disorder. . 10 Note change in reference range as of 01/02/08. The 7 change was based on recommendations from the [place] [employer]. 10 Please note change in reference range effective 07 8 . 10 A metabolite of Naproxen, O-desmethylnaproxen, has been 9 shown to interfere with the [place]-Red Wing method for measuring total bilirubin. Samples from patients who have taken Naproxen have shown spurious elevation in total bilirubin levels. 11 Because ethnic data is not always readily available, 0 this report includes an eGFR for both -Americans and non- Americans. The National Kidney Disease Education Program (NKDEP) does not endorse the use of the MDRD equation for patients that are not between the ages of 18 and 70, are , have extremes of body size, muscle mass, or nutritional status, or are non- or non-. According to the National Kidney Foundation, irrespective of diagnosis, the stage of the disease is based on the level of kidney function: Stage Description GFR(mL/min/1.73 m(2)) 1 Kidney damage with normal or decreased GFR 90 2 Kidney damage with mild decrease in GFR 60-89 3 Moderate decrease in GFR 30-59 4 Severe decrease in GFR 15-29 5 Kidney failure <15 (or dialysis) Procedures Date Code Description Status 08/13/2018 [id number] Bone Mineral Density Test Completed 07/28/2016 [id number] Bone Mineral Density Test Completed 02/25/2015 24839 EEG Recording Awake & Asleep Completed 07/30/2014 [id number] Bone Mineral Density Test Completed 08/27/2013 [id number] Colonoscopy Completed 06/11/2013 [id number] Diabetic Retinal Eye Exam Completed 04/02/2013 [id number] Bone Mineral Density Test Completed 07/23/2012 [id number] Colonoscopy Completed 03/06/2011 [id number] Noninvasive Ear Or Pulse Oximetry For Oxygen Completed Saturation 10/19/2010 [id number] Xray Knee 3 Views Completed 10/19/2010 [id number] Rad Exam; Knee, Ap&L Completed 06/01/2010 [id number] Bone Mineral Density Test Completed 06/17/2008 [id number] Colonoscopy Completed 06/05/2007 [id number] Bone Mineral Density Test Completed Encounters Type Date Location Provider Dx Diagnosis Office Visit 09/26/2018 [facility] Gastroenterology Dominic Ribeiro R19.7 Diarrhea, 1:00p MD Yonatan unspecified L29.9 Pruritus, unspecified R63.4 Abnormal weight loss E21.3 Hyperparathyroidism, unspecified Office 09/12/2018 [facility] Meghan E21.3 Hyperparathyroidism, Visit 11:00a and Endocrinology Marker, unspecified of [facility] RPA-C E04.1 Nontoxic single thyroid nodule Office Visit 08/27/2018 4:00p Rheumatology Candido M60.9 Myositis, [facility] Samia Abbasi unspecified R19.7 Diarrhea, unspecified E21.3 Hyperparathyroidism, unspecified M85.89 Oth disrd of bone density and structure, multiple sites Office Visit 07/31/2018 11:00a Rheumatology Candido M60.9 Myositis, [facility] Samia Abbasi unspecified R76.0 Raised antibody titer M85.89 Oth disrd of bone density and structure, multiple sites R19.7 Diarrhea, unspecified R63.4 Abnormal weight loss E21.3 Hyperparathyroidism, unspecified Office Visit 02/12/2017 [facility] Jossue Urrutia R60.0 Localized edema 3:40p For Blossom Brantley M.D. Diseases Office Visit 01/02/2017 [facility] Jossue Urrutia L03.116 Cellulitis of left 10:10a For Blossom Brantley M.D. lower limb Diseases Office Visit 05/29/2016 [facility] Internal Hector Shanks I10 Essential 10:00a Ijeoma Wheeler M.D. (primary) [place] hypertension E78.00 Pure hypercholesterolemia, unspecified F33.40 Major depressive disorder, recurrent, in remission, unsp Z85.3 Personal history of malignant neoplasm of breast M85.9 Disorder of bone density and structure, unspecified Office Visit 05/17/2015 9:20a [facility] Internal Hector Shanks I10 Essential ( primary) Ijeoma Wheeler M.D. 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 272.0 Hypercholesterolemia Pure 733.90 Bone & Cartilage Disorder Unspec 285.9 Anemia Unspec 252.00 Hyperparathyroidism NOS v03.82 Streptococcus Pneumoniae Vaccination Spec Other Office Visit 10/27/2013 9:00a [facility] Hector Shanks 401.1 Hypertension Mirta Wheeler M.D. 272.0 Hypercholesterolemia Pure 733.90 Bone & Cartilage Disorder Unspec V10.3 History Personal Malignant Neoplasm Breast 275.42 Hypercalcemia Office Visit 03/27/2013 11:00a [facility] Hector Shanks V72.84 Examination Medicine Samia Wheeler Preoperative Unspec 374.89 Eyelid Disorder Other 401.1 Hypertension Benign 272.0 Hypercholesterolemia Pure 296.30 Depressive Disorder Major Recurrent Unspec 275.42 Hypercalcemia 733.90 Bone & Cartilage Disorder Unspec V10.3 History Personal Malignant Neoplasm Breast V04.81 Need For Prophylactic Vaccination & Inoculation/Influenza Office Visit 12/11/2012 10:00a [facility] Hector Shanks 401.1 Hypertension Mirta Wheeler M.D. 272.0 Hypercholesterolemia Pure 296.30 Depressive Disorder Major Recurrent Unspec 285.9 Anemia Unspec 275.42 Hypercalcemia 733.90 Bone & Cartilage Disorder Unspec Office Visit 06/10/2012 10:00a [facility] Hector Shanks 401.1 Hypertension Mirta Wheeler M.D. 272.0 Hypercholesterolemia Pure 296.30 Depressive Disorder Major Recurrent Unspec 433.10 Occlusion & Stenosis Carotid Artery W/O Cerebral Infarction 285.9 Anemia Unspec V76.51 Special Screening For Malignant Neoplasms Colon Office Visit 12/07/2011 10:20a [facility] Hector Shanks 401.1 Hypertension Mirta Wheeler M.D. 272.0 Hypercholesterolemia Pure 715.16 Osteoarthrosis Localized Prim Lower Leg V10.3 History Personal Malignant Neoplasm Breast V06.1 Obdqiucnbi-Wbmwbxg-Nnekwgsw Combined (DTaP) V03.82 Streptococcus Pneumoniae Vaccination Spec Other Office Visit 06/13/2011 1:00p [facility] Hector Shanks 401.1 Hypertension Mirta Wheeler M.D. 272.0 Hypercholesterolemia Pure Office Visit 03/22/2011 11:40a DO Not Use Rn Med Surg Hector Shanks 458.0 Hypotension AT Bryce Wheeler M.D. Orthostatic 053.9 Herpes Zoster W/O Complication 716.96 Arthropathy Unspec Lower Leg Office Visit 03/06/2011 1:40p DO Not Use Rn Med Surg [place] 053.9 Herpes Zoster W /O AT Bryce Baeza M.D. Complication 458.0 Hypotension Orthostatic Office Visit 12/08/2010 1:40p DO Not Use Rn Med Surg Hector Shanks 401.1 Hypertension Benign AT [place] Wheeler M.D. 272.0 Hypercholesterolemia Pure 733.09 Osteoporosis Other Office Visit 10/19/2010 8:15a Orthopedic Lavelle Best, 716.96 Arthropathy Unspec Services [facility] Lower [facility] Office Visit 05/23/2010 2:40p DO Not Use Rn Med Surg AT Hector Shanks 401.1 Hypertension [place] Wheeler M.D. Benign 564.1 Irritable Bowel Syndrome 272.0 Hypercholesterolemia Pure 296.30 Depressive Disorder Major Recurrent Unspec 733.09 Osteoporosis Other Office Visit 11/09/2009 2:40p DO Not Use Rn Med Surg Hector Shanks 386.11 Vertigo Benign AT [place]e Wheeler M.D. Paroxysmal Position 401.1 Hypertension Benign 272.4 Hyperlipidemia Other Unspec Office Visit 10/08/2009 11:40a DO Not Use Rn Med Surg [place], 386.11 Vertigo Benign AT [facility] Samia Carter Paroxysmal Position 379.54 Nystagmus Assoc W/ Disorders Vestibular System 433.10 Occlusion & Stenosis Carotid Artery W/O Cerebral Infarction 401.1 Hypertension Benign 272.4 Hyperlipidemia Other Unspec 564.1 Irritable Bowel Syndrome 296.30 Depressive Disorder Major Recurrent Unspec Office Visit 09/08/2009 9:45a DO Not Use Rn Med Surg [place], 386.11 [facility] 784.44 Hyponasality 401.1 Hypertension Benign Office Visit 08/25/2009 10:00a DO Not Use Rn Med Surg [place] 386.11 [facility] 401.1 Hypertension Benign 272.4 Hyperlipidemia Other Unspec 564.1 Irritable Bowel Syndrome Office Visit 06/09/2009 8:40a DO Not Use Rn Med Surg [place], 401.1 Hypertension AT Bryce Qureshi M.D. Benign 272.4 Hyperlipidemia Other Unspec 296.30 Depressive Disorder Major Recurrent Unspec 733.09 Osteoporosis Other 564.1 Irritable Bowel Syndrome Office Visit 04/14/2009 11:00a DO Not Use Rn Med Surg [place], 719.47 Pain Joint Ankle & AT Bryce Qureshi M.D. Foot Office Visit 03/11/2009 3:00p DO Not Use Rn Med Surg [place], 401.1 Hypertension AT Bryce Qureshi M.D. Benign 272.4 Hyperlipidemia Other Unspec 296.30 Depressive Disorder Major Recurrent Unspec 787.6 Incontinence Of Feces 564.1 Irritable Bowel Syndrome Plan of Treatment Future Appointment(s):12/11/2018 8:40 am - Candido Abbasi M.D. at [facility]10/11/2018 - Candido Abbasi M.D.M35.01 Sicca syndrome with zbzmqzprwwzsdgftyhoxQ87.899 Other fdc (current) drug therapyReferral: Christina Kamara MD, YwxlvcylibbveP82.7 Diarrhea, unspecifiedFollow up: Follow up in 2 months or sooner if zvxwwiG65.9 Pruritus, unspecified
--- OUTSIDE RECORDS SUMMARY | 2018-10-13 16:40 | XMS REPORT | Continuity of Care Document ---
:1940 External Reference #:[id number] Author Name Val Levin M.D. Address [address] [facility] [place] [address] Care Team Providers Name Role Phone Val Levin M.D. 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 Primary Care Physician Unavailable Payers Date Identification Numbers Payment Provider Subscriber Policy Number: [id number] [place] Kemi Merlos PayID: [id number] [address] [place] [address] Policy Number: [id number] [place] Plan Jose R Nenita PayID: [id number] [address] [place] [address] Advance Directives Description No Information Available Problems Active Problems Provider Date Essential hypertension Val Levin M.D. Onset: 12/20/2016 Hyperlipidemia Val Levin M.D. Onset: 12/20/2016 Osteochondropathy Val Levin M.D. Onset: 12/20/2016 Personal history of primary malignant neoplasm Val Levin M.D. Onset: 01/2017 of breast Diarrhea Val Levin M.D. Onset: 12/20/2016 Sensorineural hearing loss Val Levin M.D. Onset: 03/28/2017 Atrophic vaginitis Val Levin M.D. Onset: 09/05/2017 Family History Date Family Member(s) Observation Comments Father Stroke Father due to Natural Causes () Father Alcoholism Mother due to Suicide () Mother Colon Cancer Children 2 2 bio and 2 adopted First Son Alcoholism First Son Mental Illness Second Son Anxiety First Brother due to Alcoholism () Social History Type Date Description Comments Sex Unknown Marital Status . Lives With Spouse Jose R Diet Healthy, Well Balanced Occupation Retired Tobacco Use Start: Unknown Never Smoked Cigarettes ETOH Use Occasional Tobacco Use Start: Unknown Patient has never smoked Smoking Status Reviewed: 10/01/18 Patient has never smoked Exercise Type/Frequency Exercises sporadically 3x week Y Allergies, Adverse Reactions, Alerts Active Allergies Reaction Severity Comments Date Codeine nightmares 12/20/2016 Amoxicillin severe skin sensitivity 12/20/2016 peppers diarrhea 12/20/2016 Medications Active Medications SIG Qnty Indications Ordering Date Provider Mometasone Furoate apply to 45gm R21 Val Levin, 12/20/2016 0.1% Ointment affected area M.D. twice a day as needed Probiotic 1 by mouth Unknown 12/19/2016 Capsules every day prn Acetaminophen 2 po q4hrs prn Unknown 12/19/2016 325mg Tablets Clindamycin HCL 1 po 1 hr prior Unknown 12/19/2016 300mg Capsules to dental work Vitamin D3 1/2 po bid Unknown 12/20/2013 1000Unit Tablets Venlafaxine HCL ER 2 by mouth Unknown 12/21/1999 150mg Tablets every day ER 24HR Aspirin Enteric Coated 1 po qod Unknown 12/20/1994 Adult Low Strength 81mg Tablets DR Loperamide HCL 1 po qd Unknown 12/20/1994 2mg Capsules Lisinopril 1 by mouth 90tabs [facility], 12/20/1989 20mg Tablets every day M.D. Simvastatin take one tablet 90tabs [facility], 12/20/1989 40mg Tablets by mouth at M.D. bedtime Hydrochlorothiazide 1 by mouth 90tabs Ashley Leonard 12/20/1989 12.5mg every day ANDERSON Morales Tablets Cetirizine HCL 1 by mouth Unknown 10mg Chewtabs every day Clobetasol Propionate E apply to Unknown 0.05% affected area Cream at at bedtime as needed Clotrimazole/Betamethasone apply to Unknown Dipropionate affected area 1-0.05% Cream twice a day Hydrocortisone apply twice a Unknown 2.5% Cream day to affected area if needed Keloconazide Shampoo 2 % use 2x weekly Unknown Calcium 600+D3 1 by mouth Unknown [id number] every day Tablets History Medications Cephalexin 1 by mouth tid Unknown 12/16/2016 - 09/05/2017 500mg Capsules Metamucil [facility] Fiber 2-3 tbsp qd Unknown 12/20/1994 - 10/01/2018 63% Powder Fexofenadine HCL 1 by mouth every day Unknown 12/21/1991 - 10/01/2018 180mg Tablets prn Triamcinolone Unknown - 10/01/2018 Powder Immunizations CPT Code Status Date Vaccine Lot # [id number] Given 02/25/2018 High-Dose, Influenza Virus Vacccine-fluzone 65 and older [id number] Given 02/14/2017 Influenza Vac, Quadrivalent, Slit Virus, Im Vital Signs Date Vital Result Comment 10/01/2018 9:15am BP Systolic 140 mmHg BP Diastolic 80 mmHg Heart Rate 80 /min Body Temperature 98.8 F Respiratory Rate 12 /min Height 65 inches 5'5" Weight 133.00 lb BMI (Body Mass Index) 22.1 kg/m2 Right Visual Acuity Distance 20/25 Left Visual Acuity Distance 20/40 09/05/2017 9:44am BP Systolic 128 mmHg BP Diastolic 70 mmHg Heart Rate 68 /min Body Temperature 97.0 F Respiratory Rate 17 /min Height 65.5 inches 5'5.50" Weight 129.50 lb BMI (Body Mass Index) 21.2 kg/m2 12/20/2016 3:15pm BP Systolic 128 mmHg BP Diastolic 78 mmHg Heart Rate 66 /min Body Temperature 97.7 F Respiratory Rate 16 /min Height 65.25 inches 5'5.25" Weight 132.38 lb BMI (Body Mass Index) 21.9 kg/m2 Results Test Date Facility Test Result H/L Range Note Laboratory test 12/25/2017 [facility] [place] SEE RESULT 1 finding Pathology BELOW CBC No Diff 12/25/2017 [facility] [place] White Blood 5.6 10^3/uL N 3.5-10.8 Count Red Blood Count 4.17 10^6/uL N 4.00-5.40 Hemoglobin 12.9 g/dL N 12.0-16.0 Hematocrit 38 % N 35-47 Mean Corpuscular Volume 91 fL N 80-97 Mean Corpuscular Hemoglobin 31 pg N 27-31 Mean Corpuscular HGB Conc 34 g/dL N 31-36 Red Cell Distribution Width 13 % N 10.5-15 Platelet Count 225 10^3/uL N 150-450 Mean Platelet Volume 7.7 um3 N 7.4-10.4 CBC Auto Diff 12/24/2017 [facility] [place] White Blood Count 6.8 10^3/uL N 3.5-10.8 2 Red Blood Count 4.14 10^6/uL N 4.00-5.40 Hemoglobin 13.0 g/dL N 12.0-16.0 Hematocrit 38 % N 35-47 Mean Corpuscular Volume 91 fL N 80-97 Mean Corpuscular Hemoglobin 31 pg N 27-31 Mean Corpuscular HGB Conc 34 g/dL N 31-36 Red Cell Distribution Width 13 % N 10.5-15 Platelet Count 243 10^3/uL N 150-450 Mean Platelet Volume 8.4 um3 N 7.4-10.4 Abs Neutrophils 4.4 10^3/uL N 1.5-7.7 Abs Lymphocytes 1.4 10^3/uL N 1.0-4.8 Abs Monocytes 0.7 10^3/uL N 0-0.8 Abs Eosinophils 0.3 10^3/uL N 0-0.6 Abs Basophils 0.1 10^3/uL N 0-0.2 Abs Nucleated RBC 0 10^3/uL Granulocyte % 64.2 % N 38-83 Lymphocyte % 20.1 % Low 25-47 Monocyte % 10.1 % High 0-7 Eosinophil % 4.7 % N 0-6 Basophil % 0.9 % N 0-2 Nucleated Red Blood Cells % 0 Type & Screen 12/24/2017 [facility] [place] Patient Blood Type A Positive Antibody Screen NEGATIVE CBC Electronic Fma 09/04/2017 Jara Sharita(fma) WBC 5.2 x10^3/UL 4.0- 10.0 RBC 4.24 x10^6/UL 3.93-6.00 HGB 13.1 g/dL 12.0-17.0 HCT 38 % 35-50 MCV 90.3 fL 80.0-95.0 MCH 30.9 pg 25.6-32.2 MCHC 34.2 g/dL 32.2-36.0 RDW-CV 12.9 % 11.6-14.4 PLT 209 x10^3/UL 163-400 MPV 9.5 fL 9.4-12.4 Dena# 3.27 x10^3/UL 1.56-6.13 Lymph# 1.24 x10^3/UL 1.18-3.74 Kendall# 0.46 x10^3/UL 0.24-0.82 Eos # 0.1 x10^3/UL 0.0-0.5 Baso # 0.04 x10^3/UL 0.01-0.08 Dena% 63.5 % 34.0-70.0 Lymph % 24.1 % 20.0-52.0 Kendall% 8.9 % 5.0-12.0 Eos% 2.3 % 0.7-7.0 Baso% 0.8 % 0.1-1.2 Laboratory test 09/04/2017 Marek Sheriff(a) Free T4 0.88 ng/dL 0.75- 1.54 finding TSH 2.72 mIU/L 0.50-6.00 Lipid Profile 09/04/2017 Marek Sheriff(a) Cholesterol 202 mg/dL High 120-200 Triglycerides 95 mg/dL 30-200 HDL Cholesterol 59 mg/dL 30-85 LDL (Calculated) 124 CALC 0-129 VLDL Cholesterol 19 mg/dL 0-50 HDL Risk Factor 3.4 CALC 0.0-4.4 Comprehensive Metabolic 09/04/2017 Marek Sheriff(a) Sodium 140 mEq/L 134-149 Prof Potassium 4.7 mEq/L 3.6-5.5 Chloride 101 mEq/L 94-112 Carbon Dioxide 27 mEq/L 21-32 Glucose 114 mg/dL High 70-105 BUN 28 mg/dL High 6-26 Creatinine 0.9 mg/dL 0.6-1.4 BUN/Creat Ratio 31.1 CALC 8.0-36.0 Calcium 10.2 mg/dL 8.6-10.2 Total Protein 6.6 g/dL 6.4-8.3 Albumin 4.5 g/dL 3.8-5.5 Globulin 2.1 g/dL 2.0-4.8 A/G Ratio 2.1 CALC 0.6-2.3 Alk. Phosphatase 85 U/L 30-110 Alt (SGPT) 21 U/L 7-35 Ast (Sgot) 32 U/L 5-34 Total Bilirubin 0.4 mg/dL 0.2-1.3 GFR Non- >60 ml/min/1.73m^ >=60 GFR >60 ml/min/1.73m^ >=60 CBC Auto Diff 02/08/2017 [facility] [place] White Blood Count 5.5 10^3/uL N 3.5-10.8 Red Blood Count 3.89 10^6/uL Low 4.0-5.4 [...] Blood Cells % 0 N Laboratory test finding 02/08/2017 [facility] [place] C Reactive Protein 3.43 mg/L N < 5.00 3 1 SEE RESULT BELOW Name: KEMI MERLOS : [address]: Tom Loja MD Acct: [id number] Unit: [id number] AGE: 77 Location: [place] Re12/25/17 SEX: F Status: REG SDC SPEC: [id number] NELA: 12/25/17- SUBM DR: Tom Loja MD REQ: [id number] RECD: 12/25/17 STATUS: PADDY LAU DR: Val Levin MD _ ORDERED: LEVEL 3/2 FINAL DIAGNOSIS 1. Breast, right, implant excision: -- Implant (gross diagnosis). -- Fibroadipose tissue with reactive change. -- No evidence of lymphoma or other malignancy. 2. Breast, left, implant excision: -- Implant (gross diagnosis). -- Fibroadipose tissue with reactive change. -- No evidence of lymphoma or other malignancy. PRE-OPERATIVE DIAGNOSIS Status post bilateral mastectomy and implant reconstruction, rule out lymphoma GROSS DESCRIPTION 1. The specimen is received fresh labeled, Right Breast Implant, and consists of a 14.0 by up to 13.1 x 7.3 cm intact moderately calcified ovoid silicone implant with abundant adherent yellow-doll fibrous tissue and fat. Cartography Professor sections, one cassette. 2. The specimen is received fresh labeled, Left Breast Implant, and consists of an 11.6 x 11.5 x 7.1 intact moderately calcified ovoid silicone implant with abundant adherent yellow-doll fibrous tissue and fat and a small amount of nuno-red muscle. Cartography Professor sections, one cassette. Signed by and Reported on: Pao Cifuentes MD 12/28/17 1404 END OF REPORT DEPARTMENT OF PATHOLOGY, [address] [place] [address] Hussain Camilo M.D. Director [facility] # [id number] 2 AA 12/25 3 Acute inflammation: >10.00 Procedures Date Code Description Status 05/14/2013 25170266 Colonoscopy Completed Encounters Type Date Location Provider Dx Diagnosis Office Visit 09/05/2017 [facility] Office Val Levin, I10 Essential ( primary) 9:50a M.D. hypertension E78.5 Hyperlipidemia, unspecified Z85.3 Personal history of malignant neoplasm of breast R73.01 Impaired fasting glucose T85.44xA Capsular contracture of breast implant, initial encounter Z98.82 Breast implant status N95.2 Postmenopausal atrophic vaginitis Z00.01 Encounter for general adult medical exam w abnormal findings Office Visit 12/20/2016 3:30p [facility] Val Levin, Z01.818 Encounter for other Office M.D. preprocedural examination H25.13 Age-related nuclear cataract, bilateral I10 Essential (primary) hypertension E78.5 Hyperlipidemia, unspecified M85.80 Oth disrd of bone density and structure, unspecified site Z85.3 Personal history of malignant neoplasm of breast R19.7 Diarrhea, unspecified R21 Rash and other nonspecific skin eruption M79.672 Pain in left foot Plan of Treatment 10/01/2018 - Val Levin M.D.Z00.01 Encounter for general adult medical examination with abnormaNew Labs:CBC Electronic-ALL [facility], Ordered: Comp Metabolic-[facility], Ordered: 10/01/18Lipid Panel-[facility] , Ordered: 10/01/18[facility] ([facility]), Ordered: 10/01/18Comments:Encourage an active and healthy lifestyle with proper eating habits including fruits, vegetables, 6-8 glasses of water a day and monitoring portion size. Recommend 30 minutes of daily physical activityincluding walking, aerobic exercise, sports , yoga or dance. Any activity is better than no activity.Recommend routine eye and dental exams. Next physical is due in 1-2 years.Z85.3 Personal history of malignant neoplasm of breastComments:has bilateral xoxixximczT39.5 Hyperlipidemia, unspecifiedNew Labs:CBC Electronic-[facility], Ordered: 05/ 21/19Comp Metabolic-[facility], Ordered: 10/01/18Lipid Panel-[facility], Ordered: 10/01/18[facility] ([facility]), Ordered: 10/01/18Comments: Goal LDL is <130, HDL >40, Triglycerides <200I10 Essential (primary) hypertensionComments:The patient will continue to monitor blood pressure and let me know the blood pressure results if there are readings persistently above 140/90. Goal blood pressure is less than 130/80. Recommend low salt/cardiac diet such as the Mediterranean diet and routine exercise at least 30 minutes a day.R21 Rash and other nonspecific skin eruptionComments:following dermatology, discussed easy bruising as result of steroid useR53.1 WeaknessComments:checking labs with Dr Hendrixments:Medication Management Patient Understands medications she's taking? Yes No Are there Barriers to Adherence? Yes No Has the patient been asked about herbal supplements and therapies, and OTC meds? Yes No
--- OUTSIDE RECORDS SUMMARY | 2018-10-13 16:40 | XMS REPORT | Continuity of Care Document ---
:1940 External Reference #:[id number] Author Name Trinity Newby Care Team Providers Name Role Phone Val Levin MD Primary Care Physician Unavailable Payers Date Identification Numbers Payment Provider Subscriber Policy Number: [id number] Medicare Abhishek Merlos PayID: [id number] [address] [place] [address] Policy Number: [id number] [facility] Jose R Merlos PayID: [id number] [address] [place] [address] Problems Active Problems Provider Date Orthostatic hypotension [...] Exercises regularly walks, water exercises at the [facility]- yoga , strength 3 days per week [...] Calcium + D3 2 by mouth Unknown [phone] every day Tablets Zyrtec Allergy 1 by [...] Calcium-D 1 po bid 60caps Thananart, - [id number] Capsules Samia Qureshi 07/15/2014 Centrum Silver 1 po qd Thananart, - Tablets Samia Qureshi 05/29/2016 Vit. E 1 tab po qd Thananart, - 1000Iu Samia Qureshi 10/08/2009 Alkalol Nasal Wash use as directed Unknown - prn 10/08/2009 Acetaminophen 2 po qid prn 100tabs Thananart, - 325mg Tablets Samia Qureshi 07/31/2018 Coenzyme Q-10 1 tab po qd Thananart, - 100mg Capsules Samia Qureshi 10/08/2009 Lisinopril 1 po qd Unknown - 10mg Tablets 10/08/2009 Hydrochlorothiazide 1 by mouth every 90caps Kavin Modena, - 12.5mg day M.DRosalia 01/30/2017 Capsules Immunizations CPT Code Status Date Vaccine Lot # [id number] Given 05/17/2015 Influenza Virus Vaccine, Quadrivalent, Split, [id number] Preservative Free [id number] Given 07/15/2014 Pneumococcal Conjugate Vaccine 13 Valent For [id number] Intramuscular Use 51036 Given 03/27/2013 Flu Vaccine Split Virus Preservative Free For [id number] Indiv 3Yr Older 73906 Given 12/07/2011 Pneumonia Vaccine [id number] 80057 Given 12/07/2011 Tdap - Tetanus/Diptheria/Acellular Pertussis [id number] 40450 Given 06/20/2011 Zoster (Zostavax) 71969 Given 06/20/2011 Zoster (Zostavax) [id number] Refused 05/29/2016 Influ Virus Vaccine, Quadrivalent, Split [...] Result H/L Range Note Laboratory test 10/02/2018 [facility] Clotest SEE RESULT [address] [place] [address] [phone] Laboratory test 10/02/2018 [facility] Surgical SEE RESULT [address] [place] [address] [phone] CBC Auto Diff 09/27/2018 [facility] White Blood 5.4 10^3/uL N 3.5-10.[address] [place] [address] [phone] Red Blood Count 4.48 10^6/uL N 3.70-4.87 [...] Blood Cells % 0.2 Laboratory test 09/27/2018 [facility] Ferritin 48.6 ng/mL N 11 -307 [address] [place] [address] [phone] Iron & Iron Binding 09/27/2018 [facility] Iron 109 g/dL N 50 -[address] [place] [address] [phone] Unsaturated Iron Binding < 433 g/dL Total Iron Binding Capacity 448 g/dL N 250-450 Transferrin 320 mg/dL N 203-362 % Iron Saturation 24 % N 15-55 Laboratory test 09/27/2018 [facility] C Reactive 8.60 mg/L High <8.[address] [place] [address] [phone] Gastrin 13 pg/mL 5 Chromogranin-A 192 ng/mL Abnormal <93 6 Glucagon 41 pg/mL <=80 7 Vasoactive Intestinal Ruperto <50 pg/mL <75 8 Calcium,24 09/14/2018 [facility] Urine Calcium 13 mg/24h < 200 9 Hour,Urine [address] [place] [address] [phone] Urine Collection Duration 24 h Urine Volume 1300 mL Urine Calcium Conc 1 mg/dL 10 Creatinine 24HR 09/14/2018 [facility] Urine Collection 24 hr Urine [address] [place] [address] [phone] Urine Total Volume 1300 mL Urine Creatinine Concentration 35.21 mg/dL Urine Creatinine/24 Hour 457.73 mg/24Hr Low 600-1800 Laboratory test 09/14/2018 [facility] Vitamin D 50.5 ng/mL High 20-[address] Total 25(Oh) [place] [address] [phone] Calcium 10.0 mg/dL N 8.6-10.3 Creatinine 09/14/2018 [facility] Creatinine 0.93 mg/dL N 0.51- [address] [place] [address] [phone] Egfr Non- 58.6 >60 Egfr 70.9 >60 12 Laboratory test 09/14/2018 [facility] TSH (Thyroid 3.16 mcIU/mL N 0.34-5.[address] Stim Horm) [place] [address] [phone] Free T4 (Free Thyroxine) 0.57 ng/dL Low 0.61-1.12 T3 Free 2.60 pg/mL N 2.5-3.9 Laboratory test 07/31/2018 [facility] Creatine 268 U/L High 10 -[address] Kinase(CK) [place] [address] [phone] Lyme Screen W/ Reflex To WB Negative Negative Laboratory test 07/31/2018 [facility] C Reactive 8.89 mg/L High <8.[address] [place] [address] [phone] Erythrocyte Sed Rate 35 mm/Hr High 0-30 13 Immunoglobulins 07/31/2018 [facility] Immunoglobulin G 851 767 - [address] mg/dL 1590 [place] [address] [phone] Immunoglobulin M 65 mg/dL 37 - 286 Immunoglobulin A 179 mg/dL 61 - 356 CBC Auto Diff 07/31/2018 [facility] White Blood 5.7 10^3/uL N 3.5-10.[address] [place] [address] [phone] Red Blood Count 4.13 10^6/uL N 3.70-4.87 [...] Blood Cells % 0.1 Laboratory test 07/31/2018 [facility] Ferritin 48.9 ng/mL N 11 -[address] [place] [address] [phone] Magnesium 2.2 mg/dL N 1.9-2.7 Pthi 07/31/2018 [facility] Calcium (PTH Intact) 9.9 mg/dL N 8.6-10.[address] [place] [address] [phone] PTH Intact 16.2 pmol/L High 1.3-9.3 Laboratory test 07/31/2018 [facility] TSH (Thyroid 3.39 mcIU/mL N 0.34-5.[address] Stim Horm) [place] [address] [phone] Thyroperoxidase AB 1.65 IU/mL N <9 RBC Folic Acid C 15 Laboratory test 10/25/2017 [facility] Cytology SEE RESULT [address] [employer] [place] [address] [phone] CBC Auto Diff 02/08/2017 [facility] White Blood 5.5 10^3/uL N 3.5-[address] Count .8 [place] [address] [phone] Red Blood Count 3.89 10^6/uL Low 4.0-5.4 [...] Cells % 0 N Laboratory test 02/08/2017 [facility] C Reactive Protein 3.43 mg /L N < 5.00 [address] [place] [address] [phone] Lipid Profile 11/17/2015 [facility] Triglycerides 214 mg/dL N 18 (Trig/Chol/HDL) [address] [place] [address] [phone] Cholesterol 175 mg/dL N 19 HDL Cholesterol 41.8 mg/dL N 20 LDL Cholesterol 90 mg/dL N 21 Comp Metabolic Panel 02/18/2015 [facility] Sodium 133 mmol/L N 133-[address] [place] [address] [phone] Potassium 4.5 mmol/L N 3.5-5.0 Chloride 106 [...] 76.2 N >60 22 Laboratory test 02/18/2015 [facility] Erythrocyte Sed 37 mm/Hr N 0-40 [address] [place] [address] [phone] Folic Acid (Folate) > 20.00 ng/mL N >3.99 24 Hemoglobin A1c (Glyco HGB) 6.1 % High Less than 6.0 25 Vitamin B12 872 pg/mL N 180-914 26 TSH (Thyroid Stim Horm) 3.05 ?IU/mL N 0.34-5.60 27 Protein 02/18/2015 [facility] Total 6.7 g/dL N 6.3 - Electrophoresis [address] Protein(Pep) 7.9 [place] [address] [phone] Albumin 3.3 g/dL Abnormal 3.4-4.7 Alpha-1 Globulin 0.3 g/dL N 0.1-0.3 Alpha-2 Globulin 1.0 g/dL N 0.6-1.0 Beta Globulin 0.9 g/dL N 0.7-1.2 Gamma Globulin 1.2 g/dL N 0.6-1.6 Albumin/Globulin Ratio 0.95 N Impression See Comment N 28 Laboratory test 01/21/2015 [facility] Magnesium 2.0 mg/dL N 1.9-2.[address] [place] [address] [phone] Troponin-I (TnI) 0.01 ng/mL N <0.03 29 Comp Metabolic Panel 01/21/2015 [facility] Sodium 128 mmol/L Low 133-[address] [place] [address] [phone] Potassium 3.4 mmol/L Low 3.5-5.0 Chloride 98 [...] N >60 30 CBC Auto Diff 01/21/2015 [facility] White Blood 7.0 10^3/uL N 4.8-10.[address] [place] [address] [phone] Red Blood Count 4.31 10^6/uL N 4.0-5.4 [...] % 0 N CBC Auto Diff 07/30/2014 [facility] White Blood 5.2 10^3/uL N 4.8-10.[address] [place] [address] [phone] Red Blood Count 4.13 10^6/uL N 4.0-5.4 [...] Cells % 0 N Lipid Profile 07/30/2014 [facility] Triglycerides 152 mg/dL N 31 (Trig/Chol/HDL) [address] [place] [address] [phone] Cholesterol 142 mg/dL N 32 HDL Cholesterol 39.1 mg/dL N 33 LDL Cholesterol 73 mg/dL N 34 Comp Metabolic Panel 07/30/2014 [facility] Sodium 134 mmol/L N 133-145 [address] [place] [address] [phone] Potassium 4.2 mmol/L N 3.5-5.0 Chloride 104 [...] Egfr 81.2 N >60 35 Pthi 07/30/2014 [facility] PTH Intact 18.7 pmol/L High 1.3- 9.3 [address] [place] [address] [phone] Calcium (PTH Intact) 9.8 mg/dL N 8.6-10.3 Lipid Profile 10/16/2013 [facility] Triglycerides 127 mg/dL N 36, 37 (Trig/Chol/HDL) 101 [place] [address] [phone] Cholesterol 125 mg/dL N 38 HDL Cholesterol 40.4 mg/dL N 39 LDL Cholesterol 59 mg/dL N 40 Surgical 08/27/2013 [facility] S RUN DATE: [address] 08/28/ <[place] [address] NOTE> [phone] Pthi 07/16/2013 [facility] PTH Intact 20.2 pmol/L High 1.3-9. [address] 3 [place] [address] [phone] Calcium (PTH Intact) 10.4 mg/dL High 8.6-10.3 Basic Metabolic Panel 04/08/2013 [facility] Sodium 135 mmol/L 133-[address] [place] [address] [phone] Potassium 4.3 mmol/L 3.5-5.0 Chloride 103 mmol/L 101-111 Co2 Carbon Dioxide 25.0 mmol/L 22-32 Anion Gap 7.0 mmol/L 2-11 Glucose 85 mg/dL 70-100 Blood Urea Nitrogen 32 mg/dL High 6-24 Creatinine 0.80 mg/dL 0.50-1.40 BUN/Creatinine Ratio 40.0 High 8-20 Calcium 10.5 mg/dL High 8.1-9.9 Egfr Non- 70.9 >60 Egfr 91.2 >60 42 Pthi 12/16/2012 [facility] PTH Intact 14.2 pmol/L High 1.3- 9.[address] [place] [address] [phone] Calcium (PTH Intact) 10.4 mg/dL High 8.1-9.9 CBC No Diff 11/18/2012 [facility] White Blood 5.4 10^3/uL 4.8 -10.[address] [place] [address] [phone] Red Blood Count 4.20 10^6/uL 4.0-5.4 Hemoglobin 11.9 g/dL Low 12.0-16.0 Hematocrit 36 % 35-47 Mean Corpuscular Volume 86 fL 80-97 Mean Corpuscular Hemoglobin 28 pg 27-31 Mean Corpuscular HGB Conc 33 g/dL 31-36 Red Cell Distribution Width 15 % 10.5-15 Platelet Count 252 10^3/uL 150-450 Mean Platelet Volume 8 um3 7.4-10.4 Laboratory test 11/18/2012 [facility] Direct NEGATIVE finding [address] [place] [address] [phone] Comp Metabolic 11/18/2012 [facility] Sodium 137 mmol/L 133-[address] 45 [place] [address] [phone] Potassium 4.7 mmol/L 3.5-5.0 Chloride 108 mmol/L [...] 57.1 >60 43 Laboratory test finding 11/18/2012 [facility] LDH 184 U/L 95- [address] [place] [address] [phone] Vitamin B12 1098 pg/mL High 180-914 TSH (Thyroid Stimulating Horm) 3.63 miu/mL 0.34-5.60 Polina (Anti-Nuclear AB) Screen Negative Negative Protein 11/18/2012 [facility] Total 7.2 g/dL 6.3 - Electrophoresis [address] Protein(Pep) 7.9 [place] [address] [phone] Albumin 3.7 g/dL 3.4-4.7 Alpha-1 Globulin 0.2 g/dL 0.1-0.3 Alpha-2 Globulin 1.0 g/dL 0.6-1.0 Beta Globulin 1.1 g/dL 0.7-1.2 Gamma Globulin 1.2 g/dL 0.6-1.6 Albumin/Globulin Ratio 1.03 Impression See Comment 44 Surgical 07/23/2012 [facility] S RUN DATE: [address] 07/24/ <[place] [address] NOTE> [phone] Stool For Blood 07/23/2012 [facility] Stool Occult (SEE NOTE) [address] Blood [place], [place] [address] [phone] Clotest 07/23/2012 [facility] Clotest (SEE NOTE) [address] [place] [address] [phone] Stool For Blood 06/18/2012 [employer] [facility] Misc neg x's 3 Vitamin B12 And 06/10/2012 [facility] Vitamin B12 851 pg/mL 180-91 Folate Serum [address] 4 [place] [address] [phone] Folate > 25.0 ng/mL High 2-16 Iron & Iron Binding 06/10/2012 [facility] Iron 37 g/dL 28- [address] [place] [address] [phone] Unsaturated Iron Binding 327 g/dL Total Iron Binding Capacity 364 g/dL 250-450 % Iron Saturation 10 % Low 15-55 Laboratory test 06/10/2012 [facility] TSH (Thyroid 2.56 0.34- 5.[address] Stimulating miu/[place] [address] Horm) [phone] Ferritin 80 ng/mL 11-307 CBC Auto Diff 06/04/2012 [facility] White Blood 5.5 10^3/uL 4.8-10.[address] [place] [address] [phone] Red Blood Count 3.83 10^6/uL Low 4.0-5.4 [...] Cells % 0 Comp Metabolic Panel 06/04/2012 [facility] Sodium 136 mmol/L 133-145 [address] [place] [address] [phone] Potassium 5.1 mmol/L High 3.5-5.0 Chloride 107 [...] Egfr 79.8 >60 48 Lipid Profile 06/04/2012 [facility] Triglycerides 163 mg/dL 40-200 (Trig/Chol/HDL) [address] [place] [address] [phone] Cholesterol 168 mg/dL Less than 200 HDL Cholesterol 44 mg/dL 40-60 49 Cholesterol/HDL Ratio 3.8 Average 1-4.44 LDL Cholesterol 91.4 mg/dL Less Than 100 50 Basic Metabolic Panel 12/05/2011 [facility] Sodium 140 mmol/L 135-145 [address] [place] [address] [phone] Potassium 4.8 mmol/L 3.5-5.0 Chloride 109 mmol/L 101-111 Co2 (Carbon Dioxide) 26.0 mmol/L 22-32 Anion Gap 5.0 mmol/L 2-11 51 Glucose 93 mg/dL 70-100 BUN 24 mg/dL 6-24 Creatinine 0.9 mg/dL 0.50-1.40 One Over Creatinine 1.11 BUN/Creatinine Ratio 26.7 High 8-20 Calcium 10.5 mg/dL High 8.1-9.9 eGFR Non- 62.1 > 60 eGFR 79.8 > [address] [facility] 06/20/2011 [facility] TSH 2.37 MIU/ML 0.34- 5.60 Panel [address] [place] [address] [phone] Comp Metabolic 06/20/2011 [facility] Sodium 136 mmol/L 135- 145 Panel [address] [place] [address] [phone] Potassium 4.6 mmol/L 3.5-5.0 Chloride 109 mmol/L [...] 63.5 > 60 55 Lipid Profile 06/20/2011 [facility] Triglyceride 162 mg/dL 40 -200 (Trig/Chol/HDL) [address] [place] [address] [phone] Cholesterol 174 mg/dL Less Than 200 56 High Density Lipoprotein 36 mg/dL Low 40-60 57 Cholesterol/HDL Ratio 4.83 AVERAGE High 1-4.44 Low Density Lipoprotein 106 mg/dL High Less Than 100 58 CBC Auto Diff 06/20/2011 [facility] White Blood 4.2 CUMM Low 4.8-10.[address] [place] [address] [phone] Red Cell Count 3.59 CUMM Low 4.2-5.4 [...] Basophils 0 0-0.2 Comp Metabolic Panel 10/17/2010 [facility] Sodium 136 mmol/L 135-[address] [place] [address] [phone] Potassium 4.3 mmol/L 3.5-5.0 Chloride 109 mmol/L [...] 44.4 > 60 61 Lipid Profile 10/17/2010 [facility] Triglyceride 105 mg/dL 40 -200 (Trig/Chol/HDL) [address] [place], [place] [address] [phone] Cholesterol 153 mg/dL Less Than 200 62 High Density Lipoprotein 43 mg/dL 40-60 63 Cholesterol/HDL Ratio 3.56 AVERAGE 1-4.44 Low Density Lipoprotein 89 mg/dL Less Than 100 64 Vitamin D, 25 06/16/2010 [facility] 25-Hydroxy Vitamin <4.0 ng/ mL () Hydroxy 101 [facility] D2 [place] [address] [phone] 25-Hydroxy Vitamin D3 43 ng/mL () 25-Hydroxy Vitamin D Total 43 ng/mL () 65 Immunofixation 06/01/2010 [facility] Albumin 3.13 GM/DL 3.0- 4.35 (Electro) Serum [address] [place] [address] [phone] Alpha 1 0.18 GM/DL 0.09-0.33 Alpha 2 [...] Immunofixation (SEE NOTE) 67 Laboratory test 06/01/2010 [facility] Hemoglobin A1c 5.9 % Less Than 68 finding [address] [facility] 6.0 [place] [address] [phone] Lyme Disease Serology Negative Negative 69 Ssa/SSB 06/01/2010 [facility] Ssa NEGATIVE Negative [address] [place] [address] [phone] SSB NEGATIVE Negative CBC With 06/01/2010 [facility] White Blood 4.7 CUMM Low 4.8- 10.8 Electronic Diff [address] [place] [address] [phone] Red Cell Count 3.96 CUMM Low 4.2-5.4 [...] Abs Basophils 0 0-0.2 Lipid Profile 06/01/2010 [facility] Triglyceride 110 mg/dL 40 -200 (Trig/Chol/HDL) [address] [place] [address] [phone] Cholesterol 176 mg/dL Less Than 200 70 High Density Lipoprotein 45 mg/dL 40-60 71 Cholesterol/HDL Ratio 3.91 AVERAGE 1-4.44 Low Density Lipoprotein 109 mg/dL High Less Than 100 72 Comp Metabolic Panel 06/01/2010 [facility] Sodium 136 mmol/L 135-[address] [place] [address] [phone] Potassium 4.5 mmol/L 3.5-5.0 Chloride 105 mmol/L [...] > [address] [facility] 06/01/2010 [facility] TSH 2.33 MIU/ML 0.34- 5.60 Panel [address] [place] [address] [phone] Basic Metabolic 09/17/2009 [facility] Sodium 134 mmol/L Low 135-145 Panel [address] [place] [address] [phone] Potassium 4.5 mmol/L 3.5-5.0 Chloride 103 mmol/L 101-111 Co2 (Carbon Dioxide) 25.0 mmol/L 22-32 Anion Gap 6.0 mmol/L 2-11 76 Glucose 102 mg/dL High 70-100 77 BUN 22 mg/dL 6-24 Creatinine 0.90 mg/dL 0.50-1.40 One Over Creatinine 1.10 BUN/Creatinine Ratio 24.4 High 8-20 Calcium 10.0 mg/dL High 8.1-9.9 78 eGFR Non- 66.4 > 60 eGFR 80.3 > 60 79 Laboratory test 09/11/2009 [facility] Vitamin B12 689 pg/mL 180-914 finding [address] [place] [address] [phone] Folic Acid > 20.0 NG/ML High 2-16 Syphilis IgG NON-REACTIVE Nonreactive 80 Polina 09/11/2009 [facility] Antinuclear AB NEGATIVE Negative [address] [place] [address] [phone] Reviewed By (SEE NOTE) 81 Basic Metabolic Panel 09/08/2009 [facility] Sodium 135 mmol/L 135-145 [address] [place] [address] [phone] Potassium 4.6 mmol/L 3.5-5.0 Chloride 104 mmol/L 101-111 Co2 (Carbon Dioxide) 26.0 mmol/L 22-32 Anion Gap 5.0 mmol/L 2-11 82 Glucose 79 mg/dL 70-100 83 BUN 29 mg/dL High 6-24 Creatinine 0.90 mg/dL 0.50-1.40 One Over Creatinine 1.10 BUN/Creatinine Ratio 32.2 High 8-20 Calcium 10.4 mg/dL High 8.1-9.9 84 eGFR Non- 66.4 > 60 eGFR 80.3 > 60 85 Laboratory 08/31/2009 [facility] Syphilis NON-REACTIVE Nonreactive 86 test finding [address] [facility] [place] [address] [phone] Polina (Antinuclear Antibodies) NEGATIVE Negative Vitamin B12 And 08/31/2009 [facility] Vitamin B12 590 pg/mL 180-914 Folate Serum [address] [place] [address] [phone] Folic Acid > 20.0 NG/ML High 2-16 Basic Metabolic 06/18/2009 [facility] Sodium 129 mmol/L Low 135-145 Panel [address] [place] [address] [phone] Potassium 4.4 mmol/L 3.5-5.0 Chloride 101 mmol/L 101-111 Co2 (Carbon Dioxide) 23.0 mmol/L 22-32 Anion Gap 5.0 mmol/L 2-11 87 Glucose 89 mg/dL 70-100 88 BUN 29 mg/dL High 6-24 Creatinine 0.89 mg/dL 0.50-1.40 One Over Creatinine 1.10 BUN/Creatinine Ratio 32.6 High 8-20 Calcium 10.0 mg/dL High 8.1-9.9 89 eGFR Non- 67.4 > 60 eGFR 81.6 > 60 90 Laboratory test 06/18/2009 [facility] Calcium 5.49 mg/dL High 4.65-5.[address] [place] [address] [phone] TSH 1.73 MIU/ML 0.34-5.60 Vitamin D, 25 06/11/2009 [facility] 25-Hydroxy Vitamin <4.0 ng/ mL () Hydroxy [address] D[address] [place] [address] [phone] 25-Hydroxy Vitamin D3 47 ng/mL () 25-Hydroxy Vitamin D Total 47 ng/mL () 91 Vitamin D 1,25 06/11/2009 [facility] Vitamin D, 1,25 37 pg/mL 18-78 92 And Vitamin [address] Dihydroxy D,2 [place] [address] [phone] Lipid Profile 06/11/2009 [facility] Triglyceride 78 mg/dL 40- 200 (Trig/Chol/HDL [address] ) [place] [address] [phone] Cholesterol 157 mg/dL Less Than 200 93 High Density Lipoprotein 37 mg/dL Low 40-60 94 Cholesterol/HDL Ratio 4.24 AVERAGE 1-4.44 Low Density Lipoprotein 104 mg/dL High Less Than 100 95 Comp Metabolic Panel 06/11/2009 [facility] Sodium 134 mmol/L Low 135-[address] [place] [address] [phone] Potassium 5.3 mmol/L High 3.5-5.0 Chloride 100 [...] > 60 100 Lipid Panel - 06/11/2009 [facility] CPK (Creatine 278 U/L High 0-[address] Kinase) [place] [address] [phone] Laboratory test 03/20/2009 [facility] Erythrocyte Sed 29 MM/HR 0-[address] [place] [address] [phone] Endomysial Abs Negative Negative 101 Transglutaminase Iga Autoab <1.2 U/mL <4.0 102 CBC With 03/20/2009 [facility] White Blood 5.8 CUMM 4.8-10.8 Electronic Diff [address] [place] [address] [phone] Red Cell Count 4.29 CUMM 4.2-5.4 Hemoglobin [...] Abs Basophils 0 0-0.2 Laboratory test 03/20/2009 [facility] Ferritin 80 NG/ML 11.0- [address] [place] [address] [phone] Vitamin B12 563 pg/mL 180-914 Lipid Profile 03/20/2009 [facility] Triglyceride 141 mg/dL 40 -200 (Trig/Chol/HDL) [address] [place] [address] [phone] Cholesterol 147 mg/dL Less Than 200 103 High Density Lipoprotein 26 mg/dL Low 40-60 104 Cholesterol/HDL Ratio 5.65 AVERAGE High 1-4.44 Low Density Lipoprotein 93 mg/dL Less Than 100 105 Comp Metabolic Panel 03/20/2009 [facility] Sodium 135 mmol/L 135-[address] [place] [address] [phone] Potassium 4.2 mmol/L 3.5-5.0 Chloride 109 mmol/L [...] > 60 110 Lipid Panel - 03/20/2009 [facility] CPK (Creatine 241 U/L High 0-170 [facility] [address] Kinase) [place] [address] [phone] 1 SEE RESULT BELOW Name: ABHISHEK MERLOS : [address]: Dominic Tam MD Acct: [id number] Unit: [id number] AGE: 78 Location: ENDO Re10/02/18 SEX: F Status: REG REF SPEC: [id number] NELA: 10/02/18-1105 [facility] DR: Dominic Tam MD REQ: [id number] RECD: 10/02/183406 STATUS: JESSEE LAU DR: Val Abbasi MD _ SOURCE: GAS ANTRUM SPDESC: ORDERED: Clotest Procedure Result Reported Site Clotest Final 10/03/18- 740 ML Clotest Negative * ML - Main Lab . END OF REPORT DEPARTMENT OF PATHOLOGY, [address] [place] [address] Hussain Camilo M.D. Director [facility] # [id number] 2 SEE RESULT BELOW Name: ABHISHEK MERLOS : [address]: Dominic Tam MD Acct: [id number] Unit: [id number] AGE: 78 Location: ENDO Re10/02/18 SEX: F Status: DEP REF SPEC: [id number] NELA: 10/02/18-1056 [facility] DR: Dominic Tam MD REQ: [id number] RECD: 10/02/18 STATUS: PADDY LAU DR: Val [...] CONTINUED ON NEXT PAGE DEPARTMENT OF PATHOLOGY, [facility] [address] [place] [address] Hussain Camilo M.D. Director [facility] # [id number] RUN DATE: 10/03/18 [facility] LAB LIVE PAGE 2 Patient: ABHISHEK MERLOS [id number] (Continued) GROSS DESCRIPTION (Continued) Signed by and Reported on: Hussain Camilo MD 1341 END OF REPORT DEPARTMENT OF PATHOLOGY, [facility] [address] [place], [place] [address] Hussain Camilo M.D. Director [facility] # [id number] 3 FASTING 4 FASTING 5 REFERENCE VALUE <100 Reference ranges valid for >=8 hour fast. Test Performed by: [facility] [place] [address] 6 Impaired renal or hepatic function or [...] developed and its performance characteristics determined by [facility] in a manner consistent with CLIA requirements. [...] absence of malignant disease. Test Performed by: [facility] - [address] [address] 7 ADDITIONAL INFORMATION Proven glucagonomas have analyte concentrations 10 fold or more above the reference range. This test was developed and its performance characteristics determined by [facility] in a manner consistent with CLIA requirements. This test has not been cleared or approved by the U.S. Food and Drug Administration. Test Performed by: [facility] - [address] [address] 8 ADDITIONAL INFORMATION This test was developed and its performance characteristics determined by [facility] in a manner consistent with CLIA requirements. This test has not been cleared or approved by the U.S. Food and Drug Administration. Test Performed by: [facility] [place] [address] 9 ADDITIONAL INFORMATION This test has been modified from the paving supervisor's instructions. Its performance characteristics were determined by [facility] in a manner consistent with CLIA requirements. This test has not been cleared or approved by the U.S. Food and Drug Administration. 10 Test Performed by: [address] [address] 11 Total 25-Hydroxyvitamin D2 and D3 (25-OH-VitD) [...] <15 (or dialysis) 13 Test Performed by: [facility] [address] [place], [place] [address] Hussain Camilo M.D. Director of Laboratory 14 Test Performed by: [place] [id number] TESTS RESULT FLAG UNITS REFERENCE Folate, RBC Folate, Hemolysate 369.9 ng/mL Not Estab. Hematocrit 36.0 % 34.0 - 46.6 01 Folate, RBC 1028 ng/mL >498 Test Report Date: 08/02/2018;08/01/[address] [address] Dir: Clemencia Hi MD For inquiries, the physician may contact Branch: [phone] Lab: [phone] SEE RESULT BELOW Name: ABHISHEK MERLOS : [address]: Tom Loja MD Acct: [id number] Unit: [id number] AGE: 77 Location: Re10/25/17 SEX: F Status: REG REF SPEC: [id number] NELA: 10/25/170950 [facility] [facility]: Tom Loja MD REQ: [id number] RECD: 10/25/171158 STATUS: PADDY LAU DR: Holden [...] rinse in CytoLyt solution for thin layer non-inspector handbag frames test. Signed by and Reported on: Hussain Camilo MD 1440 END OF REPORT DEPARTMENT OF PATHOLOGY, [address] [place] [address] Hussain Camilo M.D. Director [facility] # [id number] 17 Acute inflammation: >10.00 18 Desirable <150 [...] and in selective patients <6.0%.Please refer to [employer] Diabetic care guidelines for further information. 26 Normal Range 180 to 914 Indeterminate Range 145 to 180 Deficient Range <145 27 Draw prior to AM dose of medication 28 RESULT: No apparent monoclonal protein on serum electrophoresis. Test Performed by: [address] [address] License Inspector: Chris Zuniga II, M.D., Ph.D. 29 Reference Range and Interpretation: TnI (ng/mL) Interpretation Less Than 0.03 ng/mL Not supportive of diagnosis of [place] 0.03 - 0.50 ng/mL Indeterminate: suggest serial studies if clinically indicated. Greater than 0.5 ng/mL Consistent with diagnosis of [place] 30 Because ethnic data is not always [...] Very High >189 41 RUN DATE: 08/28/13 [facility] LAB LIVE PAGE 1 RUN TIME: 1341 [address] [place], [place] [address] Specimen Inquiry Name: ABHISHEK MERLOS : [address]: Dominic Tam MD Acct: [id number] Unit: [id number] AGE: 73 Location: ENDO Re08/27/13 SEX: F Status: REG REF SPEC: [id number] NELA: 08/27/13- SUBM DR: Dominic Tam MD REQ: [id number] RECD: 08/27/131158 STATUS: PADDY LAU DR: Hector [...] performed at Main Lab DEPARTMENT OF PATHOLOGY, [facility] [address] [place], [place] [address] Hussain Camilo M.D. Director [facility] Permit #[id number] RUN DATE: 08/28/13 [facility] LAB LIVE PAGE 2 RUN TIME: 3941 [facility] [address] [place], [place] [address] Specimen Inquiry Patient: ABHISHEK MERLOS [id number] (Continued) GROSS DESCRIPTION (Continued) GROSS DESCRIPTION (Continued) [...] performed at Main Lab DEPARTMENT OF PATHOLOGY, [address] [place] [address] Hussain Camilo M.D. Director [facility] Permit #[id number] 42 Because ethnic data is not always [...] protein on serum electrophoresis. Test Performed by: [facility] [place] [address] License Inspector: Grant Gaming III, M.D. 45 RUN DATE: 07/24/12 [facility] LAB LIVE PAGE 1 RUN TIME: 1349 [address] [place], [place] [address] Specimen Inquiry Name: ABHISHEK MERLOS : [address]: Dominic Tam MD Acct: [id number] Unit: [id number] AGE: 72 Location: ENDO Re07/23/12 SEX: F Status: REG REF SPEC: [id number] NELA: 07/23/12- SUBM DR: Dominic Tam MD REQ: [id number] RECD: 07/23/12 STATUS: PADDY LAU DR: Hector [...] performed at Main Lab DEPARTMENT OF PATHOLOGY, [facility] [address] [place] [id number] Hussain Camilo M.D. Director [facility] Permit #[id number] RUN DATE: 07/23/12 [facility] LAB LIVE PAGE 1 RUN TIME: 1158 [facility] [address] [place], [place] [address] Specimen Inquiry Name: ABHISHEK MELROS : [address]: Dominic Tam MD Acct: [id number] Unit: [id number] AGE: 72 Location: ENDO Re07/23/12 SEX: F Status: REG REF SPEC: [id number] NELA: 07/23/12-1099 [facility] DR: Dominic Tam MD REQ: [id number] RECD: 07/23/12 STATUS: COMP STEPHENIE DR: Hector Wheeler III, MD _ SOURCE: STOOL SPDESC: ORDERED: Hemoccult Procedure Result Verified Site Stool Specimen Description Final 07/23/12- 1158 ML Test not performed Stool Occult Blood Final 07/23/12- 1158 ML Stool Occult Blood Negative END OF REPORT * ML=Testing performed at Main Lab DEPARTMENT OF PATHOLOGY, [facility] [address] [place], [place] [address] Hussain Camilo M.D. Director [facility] Permit #[id number] RUN DATE: 07/24/12 [facility] LAB LIVE PAGE 1 RUN TIME: 08 [facility] [address] [place], [place] [address] Specimen Inquiry Name: ABHISHEK MERLOS : [address]: Dominic Tam MD Acct: [id number] Unit: [id number] AGE: 72 Location: ENDO Re07/23/12 SEX: F Status: REG REF SPEC: [id number] NELA: 07/23/12-[address]: Dominic Tam MD REQ: [id number] RECD: 07/23/12 STATUS: JESSEE LAU DR: Hector Wheeler III, MD _ SOURCE: [facility]SE [facility]AV[facility]: ORDERED: Clotest Procedure Result Verified Site Clotest Final 07/24/12- 807 ML Clotest Negative END OF REPORT * ML=Testing performed at Main Lab DEPARTMENT OF PATHOLOGY, [address] [place] [address] Hussain Camilo M.D. Director [facility] Permit #[id number] 48 Because ethnic data is not always [...] has been shown to interfere with the Jendrassik-Lakemont method for measuring total bilirubin. Samples from [...] normal population are 25-80 Test Performed by: [facility] Dpt of Lab Med and Pathology [address] [place] [address] License Inspector: Grant Gaming III, M.D. 66 NORMAL ELECTROPHORETIC PATTERN. 67 NORMAL SERUM IMMUNOFIXATION ELECTROPHORETIC PATTERN. NO MONOCLONAL PROTEIN DETECTED. 68 THERAPEUTIC TARGET FOR THE TREATMENT OF DIABETES MELLITUS PATIENTS IS <7% HBA1C, AND IN SELECTIVE PATIENTS <6.0%. PLEASE REFER TO [place] DIABETIC CARE GUIDELINES FOR FURTHER INFORMATION. 69 Serologic response to B. burgdorferi infection is not detected, but cannot rule out early infection during which low or undetectable antibody levels to B. burgdorferi may be present. If clinically indicated, a new serum specimen should be submitted in 7-14 days. Test Performed by: [facility] D[facility] of Lab Med and Pathology [address] [place] [address] License Inspector: Grant Gaming III, M.D. 70 CHOLESTEROL INTERPRETATION: [...] change was based on recommendations from the [employer] Diabetes [employer]. 78 Please note change in [...] change was based on recommendations from the [employer]. 84 Please note change in [...] change was based on recommendations from the [employer] Diabetes [employer]. 89 Please note change in [...] normal population are 25-80 Test Performed by: [facility] Med and Pathology [address] [place] [address] License Inspector: Grant Gaming III, M.D. 92 Test Performed by: [facility] Med [facility] Pathology [address] [place] [address] License Inspector: Grant Gaming III, M.D. 93 CHOLESTEROL INTERPRETATION: [...] change was based on recommendations from the [employer] Diabetes [employer]. 98 Please note change in reference range effective 07 . 99 A metabolite of Naproxen, O-desmethylnaproxen, has been shown to interfere with the Jendrassik-Lakemont method for measuring total bilirubin. Samples from [...] characteristics determined by Laboratory Medicine and Pathology, [facility]. This test has not been cleared or approved by the U.S. Food and Drug Administration. Test Performed by: [facility] Med and Pathology [address] [place] [address] License Inspector: Grant Gaming III, M.D. 10 Test Performed by: 2 [facility] of [facility] Med and Pathology [address] [place] [address] License Inspector: Grant Gaming III, M.D. 10 CHOLESTEROL INTERPRETATION: [...] change was based on recommendations from the [employer] Diabetes [employer]. 10 Please note change in reference range effective 07 8 . 10 A metabolite of Naproxen, O-desmethylnaproxen, has been 9 shown to interfere with the Jenpatrickik-Lakemont method for measuring total bilirubin. Samples from [...] dialysis) Procedures Date Code Description Status 08/13/2018 803769973 Bone Mineral Density Test Completed 07/28/2016 [id number] Bone Mineral Density Test Completed 02/25/2015 99393 EEG Recording Awake & Asleep Completed 07/30/2014 727777593 Bone Mineral Density Test Completed 08/27/2013 08709789 Colonoscopy Completed 06/11/2013 880839147 Diabetic Retinal Eye Exam Completed 04/02/2013 905062083 Bone Mineral Density Test Completed 07/23/2012 45707461 Colonoscopy Completed 03/06/2011 97217 Noninvasive Ear Or Pulse Oximetry For Oxygen Completed Saturation 10/19/2010 54424 Xray Knee 3 Views Completed 10/19/2010 55223 Rad Exam; Knee, Ap&L Completed 06/01/2010 030536015 Bone Mineral Density Test Completed 06/17/2008 96212722 Colonoscopy Completed 06/05/2007 165582811 Bone Mineral Density Test Completed Encounters Type Date Location Provider Dx Diagnosis Office Visit 09/26/2018 [facility] Gastroenterology Dominic Ribeiro R19.7 Diarrhea, 1:00p MD Yonatan unspecified L29.9 Pruritus, unspecified R63.4 Abnormal weight loss E21.3 Hyperparathyroidism, unspecified Office 09/12/2018 [place] [facility] Meghan E21.3 Hyperparathyroidism, Visit 11:00a and Endocrinology Marker, unspecified of [facility] RPA-C E04.1 Nontoxic single thyroid nodule Office Visit 08/27/2018 4:00p Rheumatology Candido M60.9 Myositis, [facility] Samia Abbasi unspecified R19.7 Diarrhea, unspecified E21.3 Hyperparathyroidism, unspecified M85.89 Oth disrd of bone density and structure, multiple sites Office Visit 07/31/2018 11:00a Rheumatology Candido M60.9 Myositis, [facility] Samia Abbasi unspecified R76.0 Raised antibody titer M85.89 Oth disrd of bone density and structure, multiple sites R19.7 Diarrhea, unspecified R63.4 Abnormal weight loss E21.3 Hyperparathyroidism, unspecified Office Visit 02/12/2017 [facility] Jossue Urrutia R60.0 Localized edema 3:40p For Blossom Brantley M.D. Diseases Office Visit 01/02/2017 [facility] Jossue Urrutia L03.116 Cellulitis of left 10:10a For Blossom Brantley M.D. lower limb Diseases Office Visit 05/29/2016 [facility] Internal Hector Shanks I10 Essential 10:00a Ijeoma Wheeler M.D. (primary) [place] hypertension E78.00 Pure hypercholesterolemia, unspecified F33.40 Major depressive disorder, recurrent, in remission, unsp Z85.3 Personal history of malignant neoplasm of breast M85.9 Disorder of bone density and structure, unspecified Office Visit 05/17/2015 9:20a [facility] Internal Hector Shanks I10 Essential ( primary) Ijeoma Wheeler M.D. 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 272.0 Hypercholesterolemia Pure 296.30 Depressive Disorder Major Recurrent Unspec 433.10 Occlusion & Stenosis Carotid Artery W/O Cerebral Infarction 285.9 Anemia Unspec V76.51 Special Screening For Malignant Neoplasms Colon Office Visit 12/07/2011 10:20a [facility] Hector Shanks 401.1 Hypertension iMrta Wheeler M.D. 272.0 Hypercholesterolemia Pure 715.16 Osteoarthrosis Localized Prim Lower Leg V10.3 History Personal Malignant Neoplasm Breast V06.1 Lokmrjwpyn-Deuykxz-Qbadipen Combined (DTaP) V03.82 Streptococcus Pneumoniae Vaccination Spec Other Office Visit 06/13/2011 1:00p [facility] Hector Shanks 401.1 Hypertension Mirta Wheeler M.D. 272.0 Hypercholesterolemia Pure Office Visit 03/22/2011 11:40a DO Not Use [employer] Hector Shanks 458.0 Hypotension AT Bryce Wheeler M.D. Orthostatic 053.9 Herpes Zoster W/O Complication 716.96 Arthropathy Unspec Lower Leg Office Visit 03/06/2011 1:40p DO Not Use [employer] [place] 053.9 Herpes Zoster W /O AT Bryce Baeza M.D. Complication 458.0 Hypotension Orthostatic Office Visit 12/08/2010 1:40p DO Not Use [employer] Hector Shanks 401.1 Hypertension Benign AT Quentinamee Wheeler M.D. 272.0 Hypercholesterolemia Pure 733.09 Osteoporosis Other Office Visit 10/19/2010 8:15a Orthopedic Lavelle Best, 716.96 Arthropathy Unspec Services Of [facility] Lower [facility] Office Visit 05/23/2010 2:40p DO Not Use [employer]ne[employer] AT Hector Shanks 401.1 Hypertension Quentinamee Wheeler M.D. Benign 564.1 Irritable Bowel Syndrome 272.0 Hypercholesterolemia Pure 296.30 Depressive Disorder Major Recurrent Unspec 733.09 Osteoporosis Other Office Visit 11/09/2009 2:40p DO Not Use [employer] Hector Shanks 386.11 Vertigo Benign AT Quentinamee Wheeler M.D. Paroxysmal Position 401.1 Hypertension Benign 272.4 Hyperlipidemia Other Unspec Office Visit 10/08/2009 11:40a DO Not Use [employer] [place], 386.11 Vertigo Benign AT [facility] Samia Carter Paroxysmal Position 379.54 Nystagmus Assoc W/ Disorders Vestibular System 433.10 Occlusion & Stenosis Carotid Artery W/O Cerebral Infarction 401.1 Hypertension Benign 272.4 Hyperlipidemia Other Unspec 564.1 Irritable Bowel Syndrome 296.30 Depressive Disorder Major Recurrent Unspec Office Visit 09/08/2009 9:45a DO Not Use [employer] [place], 386.11 [facility] Paroxysmal Position 784.44 Hyponasality 401.1 Hypertension Benign Office Visit 08/25/2009 10:00a DO Not Use [employer] [place] 386.11 Vertigo [facility]ign [facility] Paroxysmal Position 401.1 Hypertension Benign 272.4 Hyperlipidemia Other Unspec 564.1 Irritable Bowel Syndrome Office Visit 06/09/2009 8:40a DO Not Use [employer] [place], 401.1 Hypertension AT Bryce Qureshi M.D. Benign 272.4 Hyperlipidemia Other Unspec 296.30 Depressive Disorder Major Recurrent Unspec 733.09 Osteoporosis Other 564.1 Irritable Bowel Syndrome Office Visit 04/14/2009 11:00a DO Not Use [employer] [place], 719.47 Pain Joint Ankle & AT Bryce Qureshi M.D. Foot Office Visit 03/11/2009 3:00p DO Not Use [employer] [place], 401.1 Hypertension AT Bryce Qureshi M.D. Benign 272.4 Hyperlipidemia Other Unspec 296.30 Depressive Disorder Major Recurrent Unspec 787.6 Incontinence Of Feces 564.1 Irritable Bowel Syndrome Plan of Treatment Future Appointment(s):12/11/2018 8:40 am - Candido Abbasi M.D. at [facility]10/22/2018 11:40 am - Armen Davalos MD at [place] [facility]10/11/2018 - Candido Abbasi M.D.M35.01 Sicca syndrome with ixadipiscgaxfpnvjimbR17.899 Other nursing home (current) drug therapyReferral: Christina Kamara MD, BuudcyqnzoyxfD88.7 Diarrhea, unspecifiedFollow up: Follow up in 2 months or sooner if nosshyF04.9 Pruritus, unspecified
--- OUTSIDE RECORDS SUMMARY | 2018-10-13 16:40 | XMS REPORT | Continuity of Care Document ---
:1940 External Reference #:[id number] Author Name Sheila Calderon Care Team Providers Name Role Phone Val Levin MD Primary Care Physician Unavailable Payers Date Identification Numbers Payment Provider Subscriber Policy Number: [id number] Medicare Abhishek Merlos PayID: [id number] [address] [place] [address] Policy Number: [id number] [facility] Jose R Merlos PayID: [id number] [address] [place] [address] Problems Active Problems Provider Date Orthostatic hypotension Hector Wheeler M.D. Onset: 03/22/2011 Herpes zoster without complication Hector Wheeler M.D. Onset: 03/22/2011 Arthropathy Hector Wheeler M.D. Onset: 03/22/2011 Benign essential hypertension Hector Wheeler M.D. Onset: 12/07/2011 Pure hypercholesterolemia Hector Wheeler M.D. Onset: 12/07/2011 Localized, primary osteoarthritis of the Hector Wheeler M.D. Onset: 2011 lower leg Recurrent major depressive episodes Hector Wheeler M.D. Onset: 06/10/2012 Hypercalcemia Hcetor Wheeler M.D. Onset: 12/11/2012 Osteochondropathy Hector Wheeler M.D. Onset: 12/11/2012 Syncope and collapse Tamica Leon MD Onset: 02/15/2015 Idiopathic peripheral neuropathy Tamica Leon MD Onset: 02/15/2015 Epilepsy, not refractory Tamica Leon MD Onset: 03/10/2015 Essential hypertension Hector Wheeler M.D. Onset: 05/17/2015 Disorder of bone density and structure, Hector Wheeler M.D. Onset: 2015 unspecified Recurrent major depression in remission Hector Wheeler M.D. Onset: 2015 Family History Date Family Member(s) Observation Comments General Seizure Disorder Father Seizure Disorder possible, unclear, he was also an alcoholic. Mother Suicide 2 yrs after colon cancer Mother Colon Cancer Social History Type Date Description Comments Sex Unknown Marital Status Lives With Tobacco Use Start: Unknown Never Smoked Cigarettes Smoking Status Reviewed: 09/26/18 Never Smoked Cigarettes ETOH Use 12/11/2012 Occasionally consumes alcohol Tobacco Use Start: Unknown Patient has never smoked Recreational Drug Use Denies Drug Use Exercise Type/Frequency Exercises regularly walks, water exercises at the [facility]- yoga , strength 3 days per week Allergies, Adverse Reactions, Alerts Active Allergies Reaction Severity Comments Date Amoxicillin Rash and itching 03/11/2009 Codeine Phosphate terrible dreams 03/11/2009 Oxycontin Came off of very hard 03/11/2009 Medications Active Medications SIG Qnty Indications Ordering Date Provider Hydrochlorothiazide 1 by mouth 90capkendrick Shanks 01/30/2017 12.5mg every day Samia Wheeler Capsules Ibuprofen balbinan Hector Shanks 03/22/2011 200mg Capsules Samia Wheeler Lisinopril 1 by mouth 90tabs Kavin Levin, 10/08/2009 20mg Tablets every day M.DRosalia Venlafaxine HCL ER Unknown 150mg Caps ER 24HR Mometasone Furoate Unknown 0.1% Ointment Probiotic 1 by mouth Unknown Capsules every day Calcium + D3 2 by mouth Unknown [id number] every day Tablets Zyrtec Allergy 1 by [...] - 25mg Tablets times a day 1 M.DRosalia 10/08/2009 Fexofenadine HCL 1 tab po qd prn 90tabs 272.4 Hector Shanks 06/09/2009 - 180mg Tablets Smaia Wheeler 07/15/2014 Glucosamine-Chondroitin po bid 60caps Unknown [...] Calcium-D 1 po bid 60caps Thananart, - [id number] Capsules Samia Qureshi 07/15/2014 Centrum Silver 1 [...] Hydrochlorothiazide 1 by mouth every 90caps Kavin Levin, - 12.5mg day M.DRosalia 01/30/2017 Capsules Immunizations CPT Code Status Date Vaccine Lot # 60011 Given 05/17/2015 Influenza Virus Vaccine, Quadrivalent, Split, [id number] Preservative Free 32895 Given 07/15/2014 Pneumococcal Conjugate Vaccine 13 Valent For [id number] Intramuscular Use 45281 Given 03/27/2013 Flu Vaccine Split Virus Preservative Free For [id number] Indiv 3Yr Older 17034 Given 12/07/2011 Pneumonia Vaccine [id number] 75445 Given 12/07/2011 Tdap - Tetanus/Diptheria/Acellular Pertussis [id number] 96052 Given 06/20/2011 Zoster (Zostavax) 24090 Given 06/20/2011 Zoster (Zostavax) [id number] 80584 Refused 05/29/2016 Influ Virus Vaccine, Quadrivalent, Split Virus, Im Fluzone not PF Vital Signs Date Vital Result Comment 09/26/2018 12:53pm Height 65.5 inches 5'5.50" Weight [...] Test Result H/L Range Note Laboratory test 09/14/2018 [facility] TSH 3.16 mcIU/mL N 0.34- 5.[address] ([place] [address] Stim Horm) [phone] Free T4 (Free Thyroxine) 0.57 ng/dL Low 0.61-1.12 T3 Free 2.60 pg/mL N 2.5-3.9 Calcium,24 09/14/2018 [facility] Urine Calcium 13 mg/24h < 200 1 Hour,Urine [address] [place] [address] [phone] Urine Collection Duration 24 h Urine Volume 1300 mL Urine Calcium Conc 1 mg/dL 2 Creatinine 24HR 09/14/2018 [facility] Urine Collection [address] [place] [address] [phone] Urine Total Volume 1300 mL Urine Creatinine Concentration 35.21 mg/dL Urine Creatinine/24 Hour 457.73 mg/24Hr Low 600-1800 Laboratory test 09/14/2018 [facility] Vitamin D 50.5 ng/mL High 20-[address] Total 25(Oh) [place] [address] [phone] Calcium 10.0 mg/dL N 8.6-10.3 Creatinine 09/14/2018 [facility] Creatinine 0.93 mg/dL N 0.51- [address] [place] [address] [phone] Egfr Non- 58.6 >60 Egfr 70.9 >60 4 Laboratory test 07/31/2018 [facility] Creatine 268 U/L High 10 -[address] Kinase(CK) [place] [address] [phone] Lyme Screen W/ Reflex To WB Negative Negative Laboratory test 07/31/2018 [facility] C Reactive 8.89 mg/L High <8.[address] [place] [address] [phone] Erythrocyte Sed Rate 35 mm/Hr High 0-30 5 Laboratory test 07/31/2018 [facility] TSH (Thyroid 3.39 mcIU/mL N 0.34-5.[address] Stim Horm) [place] [address] [phone] Thyroperoxidase AB 1.65 IU/mL N <9 RBC Folic Acid C 6 Immunoglobulins 07/31/2018 [facility] Immunoglobulin G 851 mg/ dL 767 - 7 Serum Quant [address] [place] [address] [phone] Immunoglobulin M 65 mg/dL 37 - 286 Immunoglobulin A 179 mg/dL 61 - 356 CBC Auto Diff 07/31/2018 [facility] White Blood 5.7 10^3/uL N 3.5-10.[address] [place] [address] [phone] Red Blood Count 4.13 10^6/uL N 3.70-4.87 [...] Blood Cells % 0.1 Laboratory test 07/31/2018 [facility] Ferritin 48.9 ng/mL N 11 -[address] [place] [address] [phone] Magnesium 2.2 mg/dL N 1.9-2.7 Pthi 07/31/2018 [facility] Calcium (PTH Intact) 9.9 mg/dL N 8.6-10.[address] [place] [address] [phone] PTH Intact 16.2 pmol/L High 1.3-9.3 Laboratory test 10/25/2017 [facility] Cytology SEE RESULT [address] [place] [address] [phone] CBC Auto Diff 02/08/2017 [facility] White Blood 5.5 10^3/uL N 3.5-[address] Count .8 [place] [address] [phone] Red Blood Count 3.89 10^6/uL Low 4.0-5.4 [...] Cells % 0 N Laboratory test 02/08/2017 [facility] C Reactive Protein 3.43 mg /L N < 5.[address] [place] [address] [phone] Lipid Profile 11/17/2015 [facility] Triglycerides 214 mg/dL N 10 (Trig/Chol/HDL) [address] [place] [address] [phone] Cholesterol 175 mg/dL N 11 HDL Cholesterol 41.8 mg/dL N 12 LDL Cholesterol 90 mg/dL N 13 Comp Metabolic Panel 02/18/2015 [facility] Sodium 133 mmol/L N 133-[address] [place] [address] [phone] Potassium 4.5 mmol/L N 3.5-5.0 Chloride 106 [...] 59.3 N >60 Egfr 76.2 N >60 14 Laboratory test 02/18/2015 [facility] Erythrocyte Sed 37 mm/Hr N 0-40 [address] [place] [address] [phone] Folic Acid (Folate) > 20.00 ng/mL N >3.99 16 Hemoglobin A1c (Glyco HGB) 6.1 % High Less than 6.0 17 Vitamin B12 872 pg/mL N 180-914 18 TSH (Thyroid Stim Horm) 3.05 ?IU/mL N 0.34-5.60 19 Protein 02/18/2015 [facility] Total 6.7 g/dL N 6.3 - Electrophoresis [address] Protein(Pep) 7.9 [place] [address] [phone] Albumin 3.3 g/dL Abnormal 3.4-4.7 Alpha-1 Globulin 0.3 g/dL N 0.1-0.3 Alpha-2 Globulin 1.0 g/dL N 0.6-1.0 Beta Globulin 0.9 g/dL N 0.7-1.2 Gamma Globulin 1.2 g/dL N 0.6-1.6 Albumin/Globulin Ratio 0.95 N Impression See Comment N 20 Laboratory test 01/21/2015 [facility] Magnesium 2.0 mg/dL N 1.9-2.[address] [place] [address] [phone] Troponin-I (TnI) 0.01 ng/mL N <0.03 21 Comp Metabolic Panel 01/21/2015 [facility] Sodium 128 mmol/L Low 133-[address] [place] [address] [phone] Potassium 3.4 mmol/L Low 3.5-5.0 Chloride 98 [...] 42.1 N >60 Egfr 54.2 N >60 22 CBC Auto Diff 01/21/2015 [facility] White Blood 7.0 10^3/uL N 4.8-10.[address] [place] [address] [phone] Red Blood Count 4.31 10^6/uL N 4.0-5.4 [...] Nucleated Red Blood Cells % 0 N Pthi 07/30/2014 [facility] PTH Intact 18.7 pmol/L High 1.3- 9.3 [address] [place] [address] [phone] Calcium (PTH Intact) 9.8 mg/dL N 8.6-10.3 Comp Metabolic Panel 07/30/2014 [facility] Sodium 134 mmol/L N 133-145 [address] [place] [address] [phone] Potassium 4.2 mmol/L N 3.5-5.0 Chloride 104 [...] 63.2 N >60 Egfr 81.2 N >60 23 Lipid Profile 07/30/2014 [facility] Triglycerides 152 mg/dL N 24 (Trig/Chol/HDL) [address] [place] [address] [phone] Cholesterol 142 mg/dL N 25 HDL Cholesterol 39.1 mg/dL N 26 LDL Cholesterol 73 mg/dL N 27 CBC Auto Diff 07/30/2014 [facility] White Blood 5.2 10^3/uL N 4.8-10.[address] [place] [address] [phone] Red Blood Count 4.13 10^6/uL N 4.0-5.4 [...] Blood Cells % 0 N Lipid Profile 10/16/2013 [facility] Triglycerides 127 mg/dL N 28, 29 (Trig/Chol/HDL) [address] [place] [address] [phone] Cholesterol 125 mg/dL N 30 HDL Cholesterol 40.4 mg/dL N 31 LDL Cholesterol 59 mg/dL N 32 Surgical 08/27/2013 [facility] S RUN DATE: [address] 08/28/ <[place] [address] NOTE> [phone] Pthi 07/16/2013 [facility] PTH Intact 20.2 pmol/L High 1.3-9. [address] 3 [place] [address] [phone] Calcium (PTH Intact) 10.4 mg/dL High 8.6-10.3 Basic Metabolic Panel 04/08/2013 [facility] Sodium 135 mmol/L 133-145 [address] [place] [address] [phone] Potassium 4.3 mmol/L 3.5-5.0 Chloride 103 mmol/L 101-111 Co2 Carbon Dioxide 25.0 mmol/L 22-32 Anion Gap 7.0 mmol/L 2-11 Glucose 85 mg/dL 70-100 Blood Urea Nitrogen 32 mg/dL High 6-24 Creatinine 0.80 mg/dL 0.50-1.40 BUN/Creatinine Ratio 40.0 High 8-20 Calcium 10.5 mg/dL High 8.1-9.9 Egfr Non- 70.9 >60 Egfr 91.2 >60 34 Pthi 12/16/2012 [facility] PTH Intact 14.2 pmol/L High 1.3- 9.0 [address] [place] [address] [phone] Calcium (PTH Intact) 10.4 mg/dL High 8.1-9.9 Protein 11/18/2012 [facility] Total 7.2 g/dL 6.3 - Electrophoresis 101 [facility] Protein(Pep) 7.9 [place] [address] [phone] Albumin 3.7 g/dL 3.4-4.7 Alpha-1 Globulin 0.2 g/dL 0.1-0.3 Alpha-2 Globulin 1.0 g/dL 0.6-1.0 Beta Globulin 1.1 g/dL 0.7-1.2 Gamma Globulin 1.2 g/dL 0.6-1.6 Albumin/Globulin Ratio 1.03 Impression See Comment 35 Laboratory test finding 11/18/2012 [facility] LDH 184 U/L 95- 185 [address] [place] [address] [phone] Vitamin B12 1098 pg/mL High 180-914 TSH (Thyroid Stimulating Horm) 3.63 miu/mL 0.34-5.60 Polina (Anti-Nuclear AB) Screen Negative Negative Comp Metabolic Panel 11/18/2012 [facility] Sodium 137 mmol/L 133-145 [address] [place] [address] [phone] Potassium 4.7 mmol/L 3.5-5.0 Chloride 108 mmol/L [...] Egfr Non- 44.4 >60 Egfr 57.1 >60 36 Laboratory test 11/18/2012 [facility] Direct NEGATIVE finding [address] Antiglobulin Test [place] [id number] [phone] CBC No Diff 11/18/2012 [facility] White Blood Count 5.4 10^3/uL 4.8-[address] 0.8 [place] [address] [phone] Red Blood Count 4.20 10^6/uL 4.0-5.4 Hemoglobin 11.9 g/dL Low 12.0-16.0 Hematocrit 36 % 35-47 Mean Corpuscular Volume 86 fL 80-97 Mean Corpuscular Hemoglobin 28 pg 27-31 Mean Corpuscular HGB Conc 33 g/dL 31-36 Red Cell Distribution Width 15 % 10.5-15 Platelet Count 252 10^3/uL 150-450 Mean Platelet Volume 8 um3 7.4-10.4 Surgical 07/23/2012 [facility] S RUN DATE: [address] 07/24/ <[place] [address] NOTE> [phone] Stool For Blood 07/23/2012 [facility] Stool Occult (SEE NOTE) [address] [place] [address] [phone] Clotest 07/23/2012 [facility] Clotest (SEE NOTE) [address] [place] [address] [phone] Stool For Blood 06/18/2012 [facility] Misc neg x's 3 Laboratory test 06/10/2012 [facility] TSH (Thyroid 2.56 miu/mL 0.34- finding [address] Stimulating Horm) 5.60 [place] [address] [phone] Ferritin 80 ng/mL 11-307 Iron & Iron Binding 06/10/2012 [facility] Iron 37 g/dL 28- [address] [place] [address] [phone] Unsaturated Iron Binding 327 g/dL Total Iron Binding Capacity 364 g/dL 250-450 % Iron Saturation 10 % Low 15-55 Vitamin B12 And 06/10/2012 [facility] Vitamin B12 851 pg/mL 180-[address] [place] [address] [phone] Folate > 25.0 ng/mL High 2-16 CBC Auto Diff 06/04/2012 [facility] White Blood 5.5 10^3/uL 4.8-10.[address] [place] [address] [phone] Red Blood Count 3.83 10^6/uL Low 4.0-5.4 [...] Cells % 0 Comp Metabolic Panel 06/04/2012 [facility] Sodium 136 mmol/L 133-145 [address] [place] [address] [phone] Potassium 5.1 mmol/L High 3.5-5.0 Chloride 107 [...] Egfr Non- 62.1 >60 Egfr 79.8 >60 40 Lipid Profile 06/04/2012 [facility] Triglycerides 163 mg/dL 40-200 (Trig/Chol/HDL) [address] [place] [address] [phone] Cholesterol 168 mg/dL Less than 200 HDL Cholesterol 44 mg/dL 40-60 41 Cholesterol/HDL Ratio 3.8 Average 1-4.44 LDL Cholesterol 91.4 mg/dL Less Than 100 42 Basic Metabolic Panel 12/05/2011 [facility] Sodium 140 mmol/L 135-145 [address] [place] [address] [phone] Potassium 4.8 mmol/L 3.5-5.0 Chloride 109 mmol/L 101-111 Co2 (Carbon Dioxide) 26.0 mmol/L 22-32 Anion Gap 5.0 mmol/L 2-11 43 Glucose 93 mg/dL 70-100 BUN 24 mg/dL 6-24 Creatinine 0.9 mg/dL 0.50-1.40 One Over Creatinine 1.11 BUN/Creatinine Ratio 26.7 High 8-20 Calcium 10.5 mg/dL High 8.1-9.9 eGFR Non- 62.1 > 60 eGFR 79.8 > [address] Wheeler's Lab 06/20/2011 [facility] TSH 2.37 MIU/ML 0.34- 5.[address] [place] [address] [phone] Comp Metabolic 06/20/2011 [facility] Sodium 136 mmol/L 135- 145 Panel [address] [place] [address] [phone] Potassium 4.6 mmol/L 3.5-5.0 Chloride 109 mmol/L 101-111 Co2 (Carbon Dioxide) 26.0 mmol/L 22-32 Anion Gap 1.0 mmol/L Low 2-11 45 Glucose 92 mg/dL 70-100 BUN 29 mg/dL High 6-24 Creatinine 1.1 mg/dL 0.50-1.40 One Over Creatinine 0.90 BUN/Creatinine Ratio 26.4 High 8-20 Calcium 10.3 mg/dL High 8.1-9.9 Total Protein 6.5 GM/DL 6.2-8.1 Albumin 3.9 GM/DL 3.2-5.2 Globulin 2.6 GM/DL 2-4 Albumin/Globulin Ratio 1.5 1-3 Bilirubin Total 0.6 mg/dL 0.4-1.5 46 Alkaline Phosphatase 70 U/L 30-110 Alt (SGPT) 35 U/L 14-54 Ast (Sgot) 36 U/L 12-42 eGFR Non- 49.4 > 60 eGFR 63.5 > 60 47 Lipid Profile 06/20/2011 [facility] Triglyceride 162 mg/dL 40 -200 (Trig/Chol/HDL) [address] [place] [address] [phone] Cholesterol 174 mg/dL Less Than 200 48 High Density Lipoprotein 36 mg/dL Low 40-60 49 Cholesterol/HDL Ratio 4.83 AVERAGE High 1-4.44 Low Density Lipoprotein 106 mg/dL High Less Than 100 50 CBC Auto Diff 06/20/2011 [facility] White Blood 4.2 CUMM Low 4.8-10.[address] [place] [address] [phone] Red Cell Count 3.59 CUMM Low 4.2-5.4 [...] Eosinophils 0.1 0-0.6 Abs Basophils 0 0-0.2 Lipid Profile 10/17/2010 [facility] Triglyceride 105 mg/dL 40 -200 (Trig/Chol/HDL) [address] [place] [address] [phone] Cholesterol 153 mg/dL Less Than 200 51 High Density Lipoprotein 43 mg/dL 40-60 52 Cholesterol/HDL Ratio 3.56 AVERAGE 1-4.44 Low Density Lipoprotein 89 mg/dL Less Than 100 53 Comp Metabolic Panel 10/17/2010 [facility] Sodium 136 mmol/L 135-145 [address] [place] [address] [phone] Potassium 4.3 mmol/L 3.5-5.0 Chloride 109 mmol/L 101-111 Co2 (Carbon Dioxide) 22.0 mmol/L 22-32 Anion Gap 5.0 mmol/L 2-11 54 Glucose 101 mg/dL High 70-100 BUN 47 mg/dL High 6-24 Creatinine 1.50 mg/dL High 0.50-1.40 One Over Creatinine 0.60 BUN/Creatinine Ratio 31.3 High 8-20 Calcium 10.3 mg/dL High 8.1-9.9 Total Protein 6.5 GM/DL 6.2-8.1 Albumin 4.1 GM/DL 3.2-5.2 Globulin 2.4 GM/DL 2-4 Albumin/Globulin Ratio 1.7 1-3 Bilirubin Total 0.8 mg/dL 0.4-1.5 55 Alkaline Phosphatase 71 U/L 30-110 Alt (SGPT) 42 U/L 14-54 Ast (Sgot) 43 U/L High 12-42 eGFR Non- 34.5 > 60 eGFR 44.4 > 60 56 Vitamin D, 25 06/16/2010 [facility] 25-Hydroxy Vitamin <4.0 ng/ mL () Hydroxy [address] D2 [place] [address] [phone] 25-Hydroxy Vitamin D3 43 ng/mL () 25-Hydroxy Vitamin D Total 43 ng/mL () 57 DR Wheeler's Lab 06/01/2010 [facility] TSH 2.33 MIU/ML 0.34- 5.60 Panel [address] [place] [address] [phone] Comp Metabolic 06/01/2010 [facility] Sodium 136 mmol/L 135- 145 Panel [address] [place] [address] [phone] Potassium 4.5 mmol/L 3.5-5.0 Chloride 105 mmol/L 101-111 Co2 (Carbon Dioxide) 25.0 mmol/L 22-32 Anion Gap 6.0 mmol/L 2-11 58 Glucose 86 mg/dL 70-100 BUN 33 mg/dL High 6-24 Creatinine 0.90 mg/dL 0.50-1.40 One Over Creatinine 1.10 BUN/Creatinine Ratio 36.7 High 8-20 Calcium 10.1 mg/dL High 8.1-9.9 Total Protein 6.4 GM/DL 6.2-8.1 Albumin 4.0 GM/DL 3.2-5.2 Globulin 2.4 GM/DL 2-4 Albumin/Globulin Ratio 1.7 1-3 Bilirubin Total 0.6 mg/dL 0.4-1.5 59 Alkaline Phosphatase 65 U/L 30-110 Alt (SGPT) 40 U/L 14-54 Ast (Sgot) 39 U/L 12-42 eGFR Non- 66.4 > 60 eGFR 80.3 > 60 60 Lipid Profile 06/01/2010 [facility] Triglyceride 110 mg/dL 40 -200 (Trig/Chol/HDL) [address] [place] [address] [phone] Cholesterol 176 mg/dL Less Than 200 61 High Density Lipoprotein 45 mg/dL 40-60 62 Cholesterol/HDL Ratio 3.91 AVERAGE 1-4.44 Low Density Lipoprotein 109 mg/dL High Less Than 100 63 CBC With 06/01/2010 [facility] White Blood 4.7 CUMM Low 4.8- 10.8 Electronic Diff [address] [place] [address] [phone] Red Cell Count 3.96 CUMM Low 4.2-5.4 [...] Eosinophils 0.2 0-0.6 Abs Basophils 0 0-0.2 Ssa/SSB 06/01/2010 [facility] Ssa NEGATIVE Negative [address] [place] [address] [phone] SSB NEGATIVE Negative Laboratory test 06/01/2010 [facility] Hemoglobin A1c 5.9 % Less Than [address] 6.0 [place] [address] [phone] Lyme Disease Serology Negative Negative 65 Immunofixation 06/01/2010 [facility] Albumin 3.13 GM/DL 3.0- 4.35 (Electro) Serum [address] [place] [address] [phone] Alpha 1 0.18 GM/DL 0.09-0.33 Alpha 2 [...] NOTE) 66 Serum Immunofixation (SEE NOTE) 67 Basic Metabolic 09/17/2009 [facility] Sodium 134 mmol/L Low 135-145 Panel [address] [place] [address] [phone] Potassium 4.5 mmol/L 3.5-5.0 Chloride 103 mmol/L 101-111 Co2 (Carbon Dioxide) 25.0 mmol/L 22-32 Anion Gap 6.0 mmol/L 2-11 68 Glucose 102 mg/dL High 70-100 69 BUN 22 mg/dL 6-24 Creatinine 0.90 mg/dL 0.50-1.40 One Over Creatinine 1.10 BUN/Creatinine Ratio 24.4 High 8-20 Calcium 10.0 mg/dL High 8.1-9.9 70 eGFR Non- 66.4 > 60 eGFR 80.3 > 60 71 Laboratory test 09/11/2009 [facility] Vitamin B12 689 pg/mL 180-914 finding [address] [place] [address] [phone] Folic Acid > 20.0 NG/ML High 2-16 Syphilis IgG NON-REACTIVE Nonreactive 72 Polina 09/11/2009 [facility] Antinuclear AB NEGATIVE Negative [address] [place] [address] [phone] Reviewed By (SEE NOTE) 73 Basic Metabolic Panel 09/08/2009 [facility] Sodium 135 mmol/L 135-145 [address] [place] [address] [phone] Potassium 4.6 mmol/L 3.5-5.0 Chloride 104 mmol/L 101-111 Co2 (Carbon Dioxide) 26.0 mmol/L 22-32 Anion Gap 5.0 mmol/L 2-11 74 Glucose 79 mg/dL 70-100 75 BUN 29 mg/dL High 6-24 Creatinine 0.90 mg/dL 0.50-1.40 One Over Creatinine 1.10 BUN/Creatinine Ratio 32.2 High 8-20 Calcium 10.4 mg/dL High 8.1-9.9 76 eGFR Non- 66.4 > 60 eGFR 80.3 > 60 77 Laboratory 08/31/2009 [facility] Syphilis NON-REACTIVE Nonreactive [address] [place] [address] [phone] Polina (Antinuclear Antibodies) NEGATIVE Negative Vitamin B12 And 08/31/2009 [facility] Vitamin B12 590 pg/mL 180-[address] [place] [address] [phone] Folic Acid > 20.0 NG/ML High 2-16 Basic Metabolic 06/18/2009 [facility] Sodium 129 mmol/L Low 135-[address] [place] [address] [phone] Potassium 4.4 mmol/L 3.5-5.0 Chloride 101 mmol/L 101-111 Co2 (Carbon Dioxide) 23.0 mmol/L 22-32 Anion Gap 5.0 mmol/L 2-11 79 Glucose 89 mg/dL 70-100 80 BUN 29 mg/dL High 6-24 Creatinine 0.89 mg/dL 0.50-1.40 One Over Creatinine 1.10 BUN/Creatinine Ratio 32.6 High 8-20 Calcium 10.0 mg/dL High 8.1-9.9 81 eGFR Non- 67.4 > 60 eGFR 81.6 > 60 82 Laboratory test 06/18/2009 [facility] Calcium 5.49 mg/dL High 4.65-5.28 finding [facility] [place] [address] [phone] TSH 1.73 MIU/ML 0.34-5.60 Vitamin D, 25 06/11/2009 [facility] 25-Hydroxy Vitamin <4.0 ng/ mL () Hydroxy [address] D2 [place] [address] [phone] 25-Hydroxy Vitamin D3 47 ng/mL () 25-Hydroxy Vitamin D Total 47 ng/mL () 83 Vitamin D 1,25 06/11/2009 [facility] Vitamin D, 1,25 37 pg/mL 18-78 84 And Vitamin [facility] Dihydroxy D,2 [place] [address] [phone] Lipid Profile 06/11/2009 [facility] Triglyceride 78 mg/dL 40- 200 (Trig/Chol/HDL [address] ) [place] [address] [phone] Cholesterol 157 mg/dL Less Than 200 85 High Density Lipoprotein 37 mg/dL Low 40-60 86 Cholesterol/HDL Ratio 4.24 AVERAGE 1-4.44 Low Density Lipoprotein 104 mg/dL High Less Than 100 87 Comp Metabolic Panel 06/11/2009 [facility] Sodium 134 mmol/L Low 135-[address] [place] [address] [phone] Potassium 5.3 mmol/L High 3.5-5.0 Chloride 100 mmol/L Low 101-111 Co2 (Carbon Dioxide) 26.0 mmol/L 22-32 Anion Gap 8.0 mmol/L 2-11 88 Glucose 82 mg/dL 70-100 89 BUN 31 mg/dL High 6-24 Creatinine 1.10 mg/dL 0.50-1.40 One Over Creatinine 0.90 BUN/Creatinine Ratio 28.2 High 8-20 Calcium 10.6 mg/dL High 8.1-9.9 90 Total Protein 6.7 GM/DL 6.2-8.1 Albumin 4.0 GM/DL 3.2-5.2 Globulin 2.7 GM/DL 2-4 Albumin/Globulin Ratio 1.5 1-3 Bilirubin Total 0.7 mg/dL 0.4-1.5 91 Alkaline Phosphatase 82 U/L 30-110 Alt (SGPT) 49 U/L 14-54 Ast (Sgot) 42 U/L 12-42 eGFR Non- 52.8 > 60 eGFR 63.9 > 60 92 Lipid Panel - 06/11/2009 [facility] CPK (Creatine 278 U/L High 0-[address] Kinase) [place] [address] [phone] Comp Metabolic 03/20/2009 [facility] Sodium 135 135-[address] mmol/[place] [address] [phone] Potassium 4.2 mmol/L 3.5-5.0 Chloride 109 mmol/L 101-111 Co2 (Carbon Dioxide) 23.0 mmol/L 22-32 Anion Gap 3.0 mmol/L 2-11 93 Glucose 95 mg/dL 70-100 94 BUN 26 mg/dL High 6-24 Creatinine 0.90 mg/dL 0.50-1.40 One Over Creatinine 1.10 BUN/Creatinine Ratio 28.9 High 8-20 Calcium 9.9 mg/dL 8.1-9.9 95 Total Protein 6.5 GM/DL 6.2-8.1 Albumin 3.8 GM/DL 3.2-5.2 Globulin 2.7 GM/DL 2-4 Albumin/Globulin Ratio 1.4 1-3 Bilirubin Total 0.6 mg/dL 0.4-1.5 96 Alkaline Phosphatase 79 U/L 30-110 Alt (SGPT) 59 U/L High 14-54 Ast (Sgot) 41 U/L 12-42 eGFR Non- 66.6 > 60 eGFR 80.6 > 60 97 Lipid Profile 03/20/2009 [facility] Triglyceride 141 mg/dL 40 -200 (Trig/Chol/HDL) [address] [place] [address] [phone] Cholesterol 147 mg/dL Less Than 200 98 High Density Lipoprotein 26 mg/dL Low 40-60 99 Cholesterol/HDL Ratio 5.65 AVERAGE High 1-4.44 Low Density Lipoprotein 93 mg/dL Less Than 100 100 Laboratory test 03/20/2009 [facility] Ferritin 80 NG/ML 11.0- [address] [place] [address] [phone] Vitamin B12 563 pg/mL 180-914 Lipid Panel - 03/20/2009 [facility] CPK (Creatine 241 U/L High 0-[address] [place]) [place] [address] [phone] CBC With 03/20/2009 [facility] White Blood 5.8 CUMM 4.8-10.8 Electronic Diff [address] [place] [address] [phone] Red Cell Count 4.29 CUMM 4.2-5.4 Hemoglobin [...] Abs Basophils 0 0-0.2 Laboratory test 03/20/2009 [facility] Erythrocyte Sed 29 MM/HR 0-[address] Rate [place], [place] [id number] [phone] Endomysial Abs Negative Negative 101 Transglutaminase Iga Autoab <1.2 U/mL <4.0 102 1 ADDITIONAL INFORMATION This test has been modified from the plate painter's instructions. Its performance characteristics were determined by [facility] in a manner consistent with CLIA requirements. This test has not been cleared or approved by the U.S. Food and Drug Administration. 2 Test Performed by: [place] [address] 3 Total 25-Hydroxyvitamin D2 and D3 (25-OH-VitD) <10 ng/mL (severe deficiency) 10-19 ng/mL (mild to moderate deficiency) 20-50 ng/mL (optimum levels) 51-80 ng/mL (increased risk of hypercalciuria) >80 ng/mL (toxicity possible) 4 Because ethnic data is not always readily [...] 15-29 5 Kidney failure <15 (or dialysis) 5 Test Performed by: [facility] [address] [place], [place] [address] Hussain Camilo M.D. Director of Laboratory 6 TESTS RESULT FLAG UNITS REFERENCE Folate, RBC Folate, Hemolysate 369.9 ng/mL Not Estab. Hematocrit 36.0 % 34.0 - 46.6 01 Folate, RBC 1028 ng/mL >498 Test Report Date: 08/02/2018;08/01/[address] [address] Dir: Clemencia Hi MD For inquiries, the physician may contact Branch: [phone] Lab: [phone] 7 Test Performed by: [facility] [address] [place] [id number] 8 SEE RESULT BELOW Name: ABHISHEK MERLOS : [address]: Tom Loja MD Acct: [id number] Unit: [id number] AGE: 77 Location: Re10/25/17 SEX: F Status: REG REF SPEC: [id number] NELA: 10/25/170950 A[address]IL[address] DR: Tom Loja MD REQ: [id number] RECD: 10/25/171158 STATUS: PADDY LAU DR: Holden [...] rinse in CytoLyt solution for thin layer non-grinder and honer 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 Signed by and Reported on: Hussain Camilo MD [id number] END OF REPORT DEPARTMENT OF PATHOLOGY, [address] [place] [address] Hussain Camilo M.D. Director [facility] # [id number] 9 Acute inflammation: >10.00 10 Desirable <150 Borderline high 150-199 High 200-499 Very High >500 11 Desirable <200 Borderline high 200-239 High >239 12 Low <40 Desirable: 40-60 High: >60 13 Desirable: <100 mg/dL Near Optimal: 100-129 mg/dL Borderline High: 130-159 mg/dL High: 160-189 mg/dL Very High: >189 mg/dL 14 Because ethnic data is not always readily [...] 15-29 5 Kidney failure <15 (or dialysis) 15 Draw prior to AM dose of medication 16 Draw prior to AM dose of medication 17 Therapeutic target for the treatment of diabetes Mellitus patients is <7% HBA1C, and in selective patients <6.0%.Please refer to [place] [employer] Diabetic care guidelines for further information. 18 Normal Range 180 to 914 Indeterminate Range 145 to 180 Deficient Range <145 19 Draw prior to AM dose of medication 20 RESULT: No apparent monoclonal protein on serum electrophoresis. Test Performed by: [place] [address] Focused Factory Manager: Chris Zuniga II, M.D., Ph.D. 21 Reference Range and Interpretation: TnI (ng/mL) Interpretation Less Than 0.03 ng/mL Not supportive of diagnosis of PR 0.03 - 0.50 ng/mL Indeterminate: suggest serial studies if clinically indicated. Greater than 0.5 ng/mL Consistent with diagnosis of PR 22 Because ethnic data is not always [...] 5 Kidney failure <15 (or dialysis) 23 Because ethnic data is not always readily [...] 15-29 5 Kidney failure <15 (or dialysis) 24 Desirable <150 Borderline high 150-199 High 200-499 Very High >500 25 Desirable <200 Borderline high 200-239 High >239 26 Low <40 Desirable: 40-60 High: >60 27 Desirable: <100 mg/dL Near Optimal: 100-129 mg/dL Borderline High: 130-159 mg/dL High: 160-189 mg/dL Very High: >189 mg/dL 28 FASTING 29 Desirable <150 Borderline high 150-199 High 200-499 Very High >500 30 Desirable <200 Borderline high 200-239 High >239 31 Low <40 Desirable: 40-60 High: >60 32 Desirable <100 Near Optimal 100-129 Borderline high 130-159 High 160-189 Very High >189 33 RUN DATE: 08/28/13 [facility] LAB LIVE PAGE 1 RUN TIME: 1341 [address] [place], [place] [address] Specimen Inquiry Name: ABHISHEK MERLOS : [address]: Dominic Tam MD Acct: [id number] Unit: [id number] AGE: 73 Location: ENDO Re08/27/13 SEX: F Status: REG REF SPEC: [id number] NELA: 08/27/13- SUBM DR: Dominic Tam MD REQ: [id number] RECD: 08/27/131158 STATUS: PADDY LAU DR: Hector [...] performed at Main Lab DEPARTMENT OF PATHOLOGY, [facility] [employer] [place], [place] [address] Hussain Camilo M.D. Director [facility] Permit #[id number] RUN DATE: 08/28/13 [facility] LAB LIVE PAGE 2 RUN TIME: 7128 [facility] [place], [place] [address] Specimen Inquiry Patient: ABHISHEK MERLOS [id number] (Continued) GROSS DESCRIPTION (Continued) GROSS DESCRIPTION (Continued) [...] performed at Main Lab DEPARTMENT OF PATHOLOGY, [address] [place] [address] Hussain Camilo M.D. Director [facility] Permit #[id number] 34 Because ethnic data is not always readily [...] 15-29 5 Kidney failure <15 (or dialysis) 35 RESULT: No apparent monoclonal protein on serum electrophoresis. Test Performed by: [place] [address] Focused Factory Manager: Grnat Gaming III, M.D. 36 Because ethnic data is not always readily [...] 15-29 5 Kidney failure <15 (or dialysis) 37 RUN DATE: 07/24/12 [facility] LAB LIVE PAGE 1 RUN TIME: 1793 [address] [place], [place] [address] Specimen Inquiry Name: ABHISHEK MERLOS : [address]: Dominic Tam MD Acct: [id number] Unit: [id number] AGE: 72 Location: ENDO Re07/23/12 SEX: F Status: REG REF SPEC: [id number] NELA: 07/23/12- [facility] DR: Dominic Tam MD REQ: [id number] RECD: 07/23/12 STATUS: PADDY LAU DR: Hector [...] performed at Main Lab DEPARTMENT OF PATHOLOGY, [address] [place] [address] Hussain Camilo M.D. Director [facility] Permit #[id number] RUN DATE: 07/23/12 [facility] LAB LIVE PAGE 1 RUN TIME: 1158 [address] [facility], [place], [place] [address] Specimen Inquiry Name: ABHISHEK MERLOS : [address]: Dominic Tam MD Acct: [id number] Unit: [id number] AGE: 72 Location: ENDO Re07/23/12 SEX: F Status: REG REF SPEC: [id number] NELA: 07/23/12-[address]: Dominic Tam MD REQ: [id number] RECD: 07/23/12 STATUS: JESSEE LAU DR: Hector Wheeler III, MD _ SOURCE: STOOL SPDESC: ORDERED: Hemoccult Procedure Result Verified Site Stool Specimen Description Final 07/23/12- 1158 ML Test not performed Stool Occult Blood Final 07/23/12- 1158 ML Stool Occult Blood Negative END OF REPORT * ML=Testing performed at Main Lab DEPARTMENT OF PATHOLOGY, [facility] [employer] [place], [place] [address] Hussain Camilo M.D. Director [facility] Permit #[id number] RUN DATE: 07/24/12 [facility] LAB LIVE PAGE 1 RUN TIME: 0808 [facility] [place], [place] [address] Specimen Inquiry Name: ABHISHEK MERLOS : [address]: Dominic Tam MD Acct: [id number] Unit: [id number] AGE: 72 Location: ENDO Re07/23/12 SEX: F Status: REG REF SPEC: [id number] NELA: 07/23/12-1099 DR: Dominic Tam MD REQ: [id number] RECD: 07/23/12 STATUS: JESSEE LAU DR: Hector Wheeler III, MD _ SOURCE: GAS ANTRUM SPDESC: ORDERED: Clotest Procedure Result Verified Site Clotest Final 07/24/12807 ML Clotest Negative END OF REPORT * ML=Testing performed at Main Lab DEPARTMENT OF PATHOLOGY, [address] [place] [address] Hussain Camilo M.D. Director [facility] Permit #[id number] 40 Because ethnic data is not always readily [...] 15-29 5 Kidney failure <15 (or dialysis) 41 HDL Interpretation: Undesirable: High Risk: Less than 40 MG/DL Desirable: Low Risk: Greater than 60 MG/DL 42 LDL Interpretation: Low Risk Optimal Level: LDL Less than 100 MG/DL Near or Above Optimal: LDL 100-129 MG/DL Borderline High Risk: LDL 130-159 MG/DL High Risk: LDL 160-189 MG/DL Very High Risk: LDL Greater than 189 MG/DL 43 Anion gap measurement may be of limited value in the presence of any alkalosis, especially in a combined acid base disorder. . 44 Because ethnic data is not always readily [...] 15-29 5 Kidney failure <15 (or dialysis) 45 Anion gap measurement may be of limited value in the presence of any alkalosis, especially in a combined acid base disorder. . 46 A metabolite of Naproxen, O-desmethylnaproxen, has been shown to interfere with the Jendrassik-Roddy method for measuring total bilirubin. Samples from patients who have taken Naproxen have shown spurious elevation in total bilirubin levels. 47 Because ethnic data is not always readily [...] 15-29 5 Kidney failure <15 (or dialysis) 48 CHOLESTEROL INTERPRETATION: Desirable: Less than 200 MG/DL Borderline-High Risk: 200-239 MG/DL High-Risk: 240 MG/DL and over 49 HDL INTERPRETATION: Undesirable: High Risk: Less than 40 MG/DL Desirable: Low Risk: Greater than 60 MG/DL 50 LDL INTERPRETATION: Low Risk Optimal Level: LDL Less than 100 MG/DL Near or Above Optimal: LDL 100-129 MG/DL Borderline High Risk: LDL 130-159 MG/DL High Risk: LDL 160-189 MG/DL Very High Risk: LDL Greater than 189 MG/DL 51 CHOLESTEROL INTERPRETATION: Desirable: Less than 200 MG/DL Borderline-High Risk: 200-239 MG/DL High-Risk: 240 MG/DL and over 52 HDL INTERPRETATION: Undesirable: High Risk: Less than 40 MG/DL Desirable: Low Risk: Greater than 60 MG/DL 53 LDL INTERPRETATION: Low Risk Optimal Level: LDL Less than 100 MG/DL Near or Above Optimal: LDL 100-129 MG/DL Borderline High Risk: LDL 130-159 MG/DL High Risk: LDL 160-189 MG/DL Very High Risk: LDL Greater than 189 MG/DL 54 Anion gap measurement may be of limited value in the presence of any alkalosis, especially in a combined acid base disorder. . 55 A metabolite of Naproxen, O-desmethylnaproxen, has been shown to interfere with the Jendrassik-Roddy method for measuring total bilirubin. Samples from patients who have taken Naproxen have shown spurious elevation in total bilirubin levels. 56 Because ethnic data is not always readily [...] 15-29 5 Kidney failure <15 (or dialysis) 57 -- REFERENCE VALUE -- 25-HYDROXY D TOTAL (D2+D3) Optimum levels in the normal population are 25-80 Test Performed by: [facility] Dpt of Lab Med and Pathology [address] [place] [address] Focused Factory Manager: Grant Gaming III, M.D. 58 Anion gap measurement may be of limited value in the presence of any alkalosis, especially in a combined acid base disorder. . 59 A metabolite of Naproxen, O-desmethylnaproxen, has been shown to interfere with the Jendrassik-Saticoy method for measuring total bilirubin. Samples from patients who have taken Naproxen have shown spurious elevation in total bilirubin levels. 60 Because ethnic data is not always readily [...] 15-29 5 Kidney failure <15 (or dialysis) 61 CHOLESTEROL INTERPRETATION: Desirable: Less than 200 MG/DL Borderline-High Risk: 200-239 MG/DL High-Risk: 240 MG/DL and over 62 HDL INTERPRETATION: Undesirable: High Risk: Less than 40 MG/DL Desirable: Low Risk: Greater than 60 MG/DL 63 LDL INTERPRETATION: Low Risk Optimal Level: LDL Less than 100 MG/DL Near or Above Optimal: LDL 100-129 MG/DL Borderline High Risk: LDL 130-159 MG/DL High Risk: LDL 160-189 MG/DL Very High Risk: LDL Greater than 189 MG/DL 64 THERAPEUTIC TARGET FOR THE TREATMENT OF DIABETES MELLITUS PATIENTS IS <7% HBA1C, AND IN SELECTIVE PATIENTS <6.0%. PLEASE REFER TO [place] [employer] DIABETIC CARE GUIDELINES FOR FURTHER INFORMATION. 65 Serologic response to B. burgdorferi infection is not detected, but cannot rule out early infection during which low or undetectable antibody levels to B. burgdorferi may be present. If clinically indicated, a new serum specimen should be submitted in 7-14 days. Test Performed by: [facility] Dpt of Lab Med and Pathology [address] [place] [address] Focused Factory Manager: Grant Gaming III, M.D. 66 NORMAL ELECTROPHORETIC PATTERN. 67 NORMAL SERUM IMMUNOFIXATION ELECTROPHORETIC PATTERN. NO MONOCLONAL PROTEIN DETECTED. 68 Anion gap measurement may be of limited value in the presence of any alkalosis, especially in a combined acid base disorder. . 69 Note change in reference range as of 01/02/08. The change was based on recommendations from the [place] [employer]. 70 Please note change in reference range effective 07 . 71 Because ethnic data is not always readily [...] 15-29 5 Kidney failure <15 (or dialysis) 72 Warning: A positive result is not useful for establishing a diagnosis of syphilis. In most situations, such a result may reflect a prior treated infection; a negative result can exclude a diagnosis of syphilis except for incubating or early primary disease. 73 REVIEWED BY HUSSAIN CAMILO MD 74 Anion gap measurement may be of limited value in the presence of any alkalosis, especially in a combined acid base disorder. . 75 Note change in reference range as of 01/02/08. The change was based on recommendations from the [place] [employer]. 76 Please note change in reference range effective 07 . 77 Because ethnic data is not always readily [...] 15-29 5 Kidney failure <15 (or dialysis) 78 Warning: A positive result is not useful for establishing a diagnosis of syphilis. In most situations, such a result may reflect a prior treated infection; a negative result can exclude a diagnosis of syphilis except for incubating or early primary disease. 79 Anion gap measurement may be of limited value in the presence of any alkalosis, especially in a combined acid base disorder. . 80 Note change in reference range as of 01/02/08. The change was based on recommendations from the [place] [employer]. 81 Please note change in reference range effective 07 . 82 Because ethnic data is not always readily [...] 15-29 5 Kidney failure <15 (or dialysis) 83 -- REFERENCE VALUE -- 25-HYDROXY D TOTAL (D2+D3) Optimum levels in the normal population are 25-80 Test Performed by: [facility] Dpt of Lab Med and Pathology [address] [place] [address] Focused Factory Manager: Grant Gaming III, M.D. 84 Test Performed by: [facility] Dpt of Lab Med and Pathology [address] [place] [address] Focused Factory Manager: Grant Gaming III, M.D. 85 CHOLESTEROL INTERPRETATION: Desirable: Less than 200 MG/DL Borderline-High Risk: 200-239 MG/DL High-Risk: 240 MG/DL and over 86 HDL INTERPRETATION: Undesirable: High Risk: Less than 40 MG/DL Desirable: Low Risk: Greater than 60 MG/DL 87 LDL INTERPRETATION: Low Risk Optimal Level: LDL Less than 100 MG/DL Near or Above Optimal: LDL 100-129 MG/DL Borderline High Risk: LDL 130-159 MG/DL High Risk: LDL 160-189 MG/DL Very High Risk: LDL Greater than 189 MG/DL 88 Anion gap measurement may be of limited value in the presence of any alkalosis, especially in a combined acid base disorder. . 89 Note change in reference range as of 01/02/08. The change was based on recommendations from the [place] [employer]. 90 Please note change in reference range effective 07 . 91 A metabolite of Naproxen, O-desmethylnaproxen, has been shown to interfere with the Jendrassik-Roddy method for measuring total bilirubin. Samples from patients who have taken Naproxen have shown spurious elevation in total bilirubin levels. 92 Because ethnic data is not always readily [...] 15-29 5 Kidney failure <15 (or dialysis) 93 Anion gap measurement may be of limited value in the presence of any alkalosis, especially in a combined acid base disorder. . 94 Note change in reference range as of 01/02/08. The change was based on recommendations from the [place] [employer]. 95 Please note change in reference range effective 07 . 96 A metabolite of Naproxen, O-desmethylnaproxen, has been shown to interfere with the Jendrassik-Roddy method for measuring total bilirubin. Samples from patients who have taken Naproxen have shown spurious elevation in total bilirubin levels. 97 Because ethnic data is not always readily [...] 15-29 5 Kidney failure <15 (or dialysis) 98 CHOLESTEROL INTERPRETATION: Desirable: Less than 200 MG/DL Borderline-High Risk: 200-239 MG/DL High-Risk: 240 MG/DL and over 99 HDL INTERPRETATION: Undesirable: High Risk: Less than 40 MG/DL Desirable: Low Risk: Greater than 60 MG/DL 100 LDL INTERPRETATION: Low Risk Optimal Level: LDL Less than 100 MG/DL Near or Above Optimal: LDL 100-129 MG/DL Borderline High Risk: LDL 130-159 MG/DL High Risk: LDL 160-189 MG/DL Very High Risk: LDL Greater than 189 MG/DL 101 Analyte Specific Reagent This test was developed and its performance characteristics determined by Laboratory Medicine and Pathology, [facility]. This test has not been cleared or approved by the U.S. Food and Drug Administration. Test Performed by: [facility] Dpt of Lab Med and Pathology [address] [place] [address] Focused Factory Manager: Grant Gaming III, M.D. 102 Test Performed by: [facility] Dpt of Lab Med and Pathology [address] [place] [address] Focused Factory Manager: Grant Gaming III, M.D. Procedures Date Code Description Status 08/13/2018 [id number] Bone Mineral Density Test Completed 07/28/2016 [id number] Bone Mineral Density Test Completed 02/25/2015 90662 EEG Recording Awake & Asleep Completed 07/30/2014 [id number] Bone Mineral Density Test Completed 08/27/2013 19080110 Colonoscopy Completed 06/11/2013 [id number] Diabetic Retinal Eye Exam Completed 04/02/2013 [id number] Bone Mineral Density Test Completed 07/23/2012 [id number] Colonoscopy Completed 03/06/2011 09876 Noninvasive Ear Or Pulse Oximetry For Oxygen Completed Saturation 10/19/2010 71646 Xray Knee 3 Views Completed 10/19/2010 86037 Rad Exam; Knee, Ap&L Completed 06/01/2010 [id number] Bone Mineral Density Test Completed 06/17/2008 [id number] Colonoscopy Completed 06/05/2007 [id number] Bone Mineral Density Test Completed Encounters Type Date Location Provider Dx Diagnosis Office Visit 09/26/2018 [facility] Gastroenterology Dominic Ribeiro R19.7 Diarrhea, 1:00p MD Yonatan unspecified L29.9 Pruritus, unspecified R63.4 Abnormal weight loss E21.3 Hyperparathyroidism, unspecified Office Visit 08/27/2018 4:00p Rheumatology Candido M60.9 Myositis, Services Of Aria Abbasi M.D. unspecified R19.7 Diarrhea, unspecified E21.3 Hyperparathyroidism, unspecified M85.89 Oth disrd of bone density and structure, multiple sites Office Visit 07/31/2018 11:00a Rheumatology Candido M60.9 Myositis, Services Of Aria Abbasi M.D. unspecified R76.0 Raised antibody titer M85.89 Oth disrd of bone density and structure, multiple sites R19.7 Diarrhea, unspecified R63.4 Abnormal weight loss E21.3 Hyperparathyroidism, unspecified Office Visit 02/12/2017 [facility] Jossue Urrutia R60.0 Localized edema 3:40p For Blossom Brantley M.D. Diseases Office Visit 01/02/2017 [facility] Jossue Urrutia L03.116 Cellulitis of left 10:10a For Blossom Brantley M.D. lower limb Diseases Office Visit 05/29/2016 [facility] Internal Hector ERosalia I10 Essential 10:00a Ijeoma Wheeler M.D. (primary) [place] hypertension E78.00 Pure hypercholesterolemia, unspecified F33.40 Major depressive disorder, recurrent, in remission, unsp Z85.3 Personal history of malignant neoplasm of breast M85.9 Disorder of bone density and structure, unspecified Office Visit 05/17/2015 9:20a [facility] Internal Hector ERosalia I10 Essential ( primary) Ijeoma Wheeler M.D. 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, w/o stat epi R55 Syncope and collapse Office Visit 02/15/2015 1:00p [facility] Tamica Leon MD R55 Syncope and Services Of [facility] collapse G60.9 Hereditary and idiopathic neuropathy, unspecified Office Visit 07/15/2014 2:00p [facility] Internal Hector Shanks 401.1 Hypertension Benign Ijeoma [...] V10.3 History Personal Malignant Neoplasm Breast V06.1 Idcbckzjgx-Vlwkafn-Turkkiww Combined (DTaP) V03.82 Streptococcus Pneumoniae Vaccination Spec Other Office Visit 06/13/2011 1:00p [facility] Hector Shanks 401.1 Hypertension Mirta Wheeler M.D. 272.0 Hypercholesterolemia Pure Office Visit 03/22/2011 11:40a DO Not Use Transit Coach Operator Hector Shanks 458.0 Hypotension AT Bryce Wheeler M.D. Orthostatic 053.9 Herpes Zoster W/O Complication 716.96 Arthropathy Unspec Lower Leg Office Visit 03/06/2011 1:40p DO Not Use Transit Coach Operator Esdras 053.9 Herpes Zoster W /O AT [facility] Samia Baeza Complication 458.0 Hypotension Orthostatic Office Visit 12/08/2010 1:40p DO Not Use Transit Coach Operator Hector Shanks 401.1 Hypertension Benign AT Veronaamee Wheeler M.D. 272.0 Hypercholesterolemia Pure 733.09 Osteoporosis Other Office Visit 10/19/2010 8:15a Orthopedic Lavelle Best, 716.96 Arthropathy Unspec Services Of M.Ghada Lower Leg C.M.A. Office Visit 05/23/2010 2:40p DO Not Use Transit Coach Operator AT Hector Shanks 401.1 Hypertension Veronaamee Wheeler M.D. Benign 564.1 Irritable Bowel Syndrome 272.0 Hypercholesterolemia Pure 296.30 Depressive Disorder Major Recurrent Unspec 733.09 Osteoporosis Other Office Visit 11/09/2009 2:40p DO Not Use Transit Coach Operator Hector Shanks 386.11 Vertigo Benign AT Veronaamee Wheeler M.D. Paroxysmal Position 401.1 Hypertension Benign 272.4 Hyperlipidemia Other Unspec Office Visit 10/08/2009 11:40a DO Not Use Transit Coach Operator Swetha, 386.11 Vertigo Benign AT Veronaamee Carter M.D. Paroxysmal Position 379.54 Nystagmus Assoc W/ Disorders Vestibular System 433.10 Occlusion & Stenosis Carotid Artery W/O Cerebral Infarction 401.1 Hypertension Benign 272.4 Hyperlipidemia Other Unspec 564.1 Irritable Bowel Syndrome 296.30 Depressive Disorder Major Recurrent Unspec Office Visit 09/08/2009 9:45a DO Not Use Transit Coach Operator Twin [place], 386.11 Vertigo Benign AT [facility] Samia Paroxysmal Position 784.44 Hyponasality 401.1 Hypertension Benign Office Visit 08/25/2009 10:00a DO Not Use Transit Coach Operator [place], 386.11 Vertigo Benign AT [facility] Samia Paroxysmal Position 401.1 Hypertension Benign 272.4 Hyperlipidemia Other Unspec 564.1 Irritable Bowel Syndrome Office Visit 06/09/2009 8:40a DO Not Use Transit Coach Operator [place]art, 401.1 Hypertension AT Bryce Qureshi M.D. Benign 272.4 Hyperlipidemia Other Unspec 296.30 Depressive Disorder Major Recurrent Unspec 733.09 Osteoporosis Other 564.1 Irritable Bowel Syndrome Office Visit 04/14/2009 11:00a DO Not Use [employer] Thanjosé manuel, 719.47 Pain Joint Ankle & AT Bryce Qureshi M.D. Foot Office Visit 03/11/2009 3:00p DO Not Use [employer] Thananart, 401.1 Hypertension AT Bryce Qureshi M.D. Benign 272.4 Hyperlipidemia Other Unspec 296.30 Depressive Disorder Major Recurrent Unspec 787.6 Incontinence Of Feces 564.1 Irritable Bowel Syndrome Plan of Treatment Future Appointment(s):10/14/2018 8:30 am - RENA James at [facility]10/11/2018 9:40 am - Candido Abbasi M.D. at [facility]09/26/2018 - Dominic Tam, MDR19.7 Diarrhea, [id number] Pruritus, [id number] Abnormal weight lossE21.3 Hyperparathyroidism, unspecified
[2018-10-13 17:12] VITALS: BP 170/90
--- NOTE | 2018-10-13 17:18 | ED ---
Lower Extremity - HPI Summary HPI Summary: Patient is a 78-year-old female who presents to the ED with foot pain which started after walking through [employer] this morning. She is having pain to the right lateral side of the plantar surface of the foot with associated erythema to the toes. at bedside states he was concerned for decreased blood flow. Patient denies any numbness or tingling. Patient is endorsing pain to the plantar surface of the foot, without pain to the dorsum of the foot. She remains ambulatory. She states pain is worse with ambulation, better with rest. Discoloration in her toes has improved since arriving to the ED. She is endorsing warmth to the toes prior to arrival, she denies this currently. She denies history of diabetes, vasculitis, PAD or PVD. Pulses intact on arrival. - History of Current Complaint Chief Complaint: EDExtremityLower Stated Complaint: RIGHT FOOT SWOLLEN/SORE PER PT Time Seen by Provider: 10/13/18 16:04 Onset of Pain: Minutes Onset/Duration: Minutes Severity Initially: Mild Severity Currently: Mild Pain Intensity: 3 Pain Scale Used: 0-10 Numeric Timing: Constant Location: Is Discrete @ - right lateral foot Associated Signs And Symptoms: Positive: Redness. Negative: Swelling, Bruising , Fever, Weakness, Dizziness Aggravating Factor(s): Standing, Ambulation Alleviating Factor(s): Rest Able to Bear Weight: Yes - Risk Factors Gout Risk Factors: Negative DVT Risk Factors: Negative Septic Arthritis Risk Factor: Negative - Allergies/Home Medications Allergies/Adverse Reactions: Allergies Allergy/AdvReac Type Severity Reaction Status Date / Time amoxicillin Allergy Hives Verified 10/13/18 15:56 codeine Allergy NIGHTMARES Verified 10/13/18 15:56 oxycodone Allergy AVOIDS Verified 10/13/18 15:56 PEPPER Allergy DIGESTIVE Uncoded 10/13/18 15:56 PMH/Surg Hx/FS Hx/Imm Hx Previously Healthy: Yes Endocrine/Hematology History: Reports: Hx Thyroid Disease - PARTIAL PARATHYROID REMOVAL Denies: Hx Diabetes Cardiovascular History: Reports: Hx Hypertension - ON MEDICATION FOR, Other Cardiovascular Problems/Disorders - 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 Denies: Hx Pacemaker/ICD Respiratory History: Reports: Hx Sleep Apnea - ?- SNORES Comment Only: Other Respiratory Problems/Disorders - SINUS DISCHARGE GI History: Reports: Other GI Disorders - CHRONIC DIARRHEA OFTEN History: Denies: Hx Renal Disease Musculoskeletal History: Reports: Hx Arthritis Denies: Hx Osteoporosis Sensory History: Denies: Hx Contacts or Glasses, Hx Hearing Aid Opthamlomology History: Denies: Hx Contacts or Glasses Neurological History: Reports: Hx Seizures - X 1 WITHDRAWL FROM [employer]- 6 YEARS AGO, Other Neuro Impairments/Disorders - SHINGLES 5 YEARS AGO Psychiatric History: Reports: Hx Anxiety, Hx Depression - CHRONIC- MANY YEARS PER PATIENT Denies: Hx Panic Disorder - Cancer History Cancer Type, 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 BILATERAL MASTECTOMIES WITH RECONSTRUCTION. TONSILLECTOMY. TUBES A CHILD. 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 CARPAL TUNNEL RELEASE BILATERAL. PARATHYROIDECTOMY Hx Anesthesia Reactions: Yes - LONG TIME COMING OUT OF ANESTHESIA - Immunization History Hx Pertussis Vaccination: No Immunizations Up to Date: Yes Infectious Disease History: No Infectious Disease History: Denies: Traveled Outside the [place] in Last 30 Days - Social History Occupation: Unemployed Lives: With Family Alcohol Use: Rare Hx Substance Use: No Substance Use Type: Reports: None Hx Tobacco Use: No Smoking Status (MU): Never Smoked Tobacco Review of Systems Constitutional: Negative Negative: Fever, Chills, Fatigue, Skin Diaphoresis Negative: Palpitations, Chest Pain Negative: Shortness Of Breath, Cough Genitourinary: Negative Positive: no symptoms reported, see HPI Negative: Arthralgia, Myalgia Positive: Other - erythematous toes, R plantar surface foot pain - lateral side Neurological: Negative All Other Systems Reviewed And Are Negative: Yes Physical Exam Triage Information Reviewed: Yes Vital Signs On Initial Exam: Initial Vitals Temp Pulse Resp BP Pulse Ox 97.0 F 64 16 198/106 99 10/13/18 15:47 10/13/18 15:47 10/13/18 15:47 10/13/18 15:47 10/13/18 15:47 Vital Signs Reviewed: Yes Appearance: Positive: Well-Appearing, Well-Nourished Skin: Positive: Skin Color Reflects Adequate Perfusion, Other - erythematous toes, R plantar surface foot pain - lateral side Head/Face: Positive: Normal Head/Face Inspection Eyes: Positive: EOMI Neck: Positive: Supple, No Lymphadenopathy Respiratory/Lung Sounds: Positive: Clear to Auscultation, Breath Sounds Present Cardiovascular: Positive: Pulses are Symmetrical in both Upper and Lower Extremities Musculoskeletal: Positive: Pain @ - right lateral plantar surface pain Neurological: Positive: Speech Normal Psychiatric: Positive: Affect/Mood Appropriate AVPU Assessment: Alert Diagnostics - Vital Signs Vital Signs Temp Pulse Resp BP Pulse Ox 10/13/18 17:05 97.4 F 67 16 170/90 99 10/13/18 15:47 97.0 F 64 16 198/106 99 - Laboratory Lab Statement: Any lab studies that have been ordered have been reviewed, and results considered in the medical decision making process. Lower Extremity Course/Dx - Course Course Of Treatment: Pulses intact +2 bilaterally. Small amount of erythema noted to the toes of the right foot without warmth. Pain on palpation to the right lateral side of the plantar surface of the foot only on palpation, and not with rest. There is some erythema to the dorsal side of the foot to the right lateral side. Patient states she is feeling improved since arriving to the ED. She did not walk far today, however first endorses the pain when she was walking through [employer]. She denies any trauma or injury. Patient will be given Keflex for a possible coexisting cellulitis. This is likely inflammatory. Patient is given return instructions. - Diagnoses Provider Diagnoses: Cellulitis Discharge - Sign-Out/Discharge Documenting (check all that apply): Patient Departure Patient Received Moderate/Deep Sedation with Procedure: No - Discharge Plan Condition: Stable Disposition: HOME Prescriptions: Cephalexin CAP* [Keflex CAP*] 500 mg PO TID #15 cap Referrals: Val Levin MD [Primary Care Provider] - Additional Instructions: There has been known to have some cross-reactivity with your allergy to amoxicillin and your prescribed Keflex This is very rare and if it occurs it will most likely be a hive reaction nothing serious, however return to the ED if he develop any symptoms Elevate and ice the area as much as possible Try not to bear weight to the area until you feel more comfortable and with less pain Ibuprofen 600mg will decrease the inflammation and help with some pain Keflex 500 mg 3 times daily 5 days for a possible cellulitis I believe this is inflammatory and will be helped most likely with ice, elevation and ibuprofen However, if he develop any streaking up the leg, worsening redness, warmth, pain or decreased sensation with numbness, tingling or discoloration (white) to the toes or the foot otherwise - please return to the ED - Billing Disposition and Condition Condition: STABLE Disposition: Home
== END 2018-10-13 17:05 | disposition home or self-care (01) ==
LOC: ED 15:46
DX: L03.115 Cellulitis of right lower limb (principal); I10 Essential (primary) hypertension; Z96.653 Presence of artificial knee joint, bilateral; Z88.5 Allergy status to narcotic agent; Z88.0 Allergy status to penicillin
CPT/HCPCS: 99282

== ENCOUNTER 2020-04-09 09:48 | Inpatient (IN) ==
[2020-04-09 11:06] LABS: ABS Lymphocytes 0.3 10^3/ul (1.0-4.8); ABS Monocytes 1.3 10^3/ul (0-0.8); ABS Neutrophils 13.7 10^3/ul (1.5-7.7); Hematocrit 28 % (35-47); Hemoglobin 9.7 g/dL (12.0-16.0); Mean Corpuscular HGB Conc 35 g/dL (31-36); Mean Corpuscular Hemoglobin 30 pg (27-31); Mean Corpuscular Volume 86 fL (80-97); Mean Platelet Volume 7.8 fL (7.4-10.4); Platelet Count 227 10^3/uL (150-450); Red Blood Count 3.26 10^6 /uL (3.70-4.87); Red Cell Distribution Width 13 % (10-15); White Blood Count 15.3 10^3/uL (3.5-10.8)
[2020-04-09 11:18] LABS: Albumin 3.3 g/dL (3.2-5.2); Albumin/Globulin Ratio 1.2 (1-3); BUN/Creatinine Ratio 35.1 (8-20); Calcium 7.7 mg/dL (8.6-10.3); EGFR African American 27.5 (>60); EGFR Non-African American 22.7 (>60); Globulin 2.8 g/dL (2-4); Total Bilirubin 0.2 mg/dL (0.2-1.0); Total Protein 6.1 g/dL (6.4-8.9)
[2020-04-09 11:20] LABS: Potassium 2.1 mmol/L (3.5-5.0)
[2020-04-09] MEDS ORDERED: Potassium Chlor 20 meq TAB.ER PO ONE (11:23)
[2020-04-09] MEDS ORDERED: NS 0.9% 1000 ml BAG 1,000 ML IV ONE (11:33)
[2020-04-09] MEDS: KCL 10 MEQ/50 ML IVPREMIX 10 MEQ/50 ML BAG IV SCH ×2 (11:56→14:57)
[2020-04-09 13:50] LABS: C Reactive Protein 228.39 mg/L (<8.01); Magnesium 1.5 mg/dL (1.9-2.7)
[2020-04-09] MEDS ORDERED: Magnesium Sulf 4 GM/100 ML IV 4,000 MG/100 ML BAG IVPB ONE (14:04)
[2020-04-09] MEDS: cefTRIAXone 1 gm/50 mL NS BAG 1 GM/50 ML BAG IVPB SCH (14:56)
[2020-04-09 16:49] LABS: Calcium 7.7 mg/dL (8.6-10.3)
[2020-04-09 16:55] LABS: EGFR African American 29.2 (>60); EGFR Non-African American 24.2 (>60)
[2020-04-09 16:59] LABS: Potassium 2.5 mmol/L (3.5-5.0)
[2020-04-09] MEDS: Heparin 5000 UNITS/ML 1 mL VIAL SUBCUT SCH ×2 (17:37→21:59)
[2020-04-09] MEDS: NS 0.9% w/ 20 Meq KCL 1000 ml 1,000 ML IV SCH (17:38)
[2020-04-09] MEDS: Cholestyramine Resin 4 GM POWDER PO SCH (17:38)
[2020-04-09] MEDS: KCL 20 MEQ/100 ML IVPREMIX 20 MEQ/100 ML BAG IV SCH (17:38)
[2020-04-09] MEDS: Venlafaxine XR 75 mg PO SCH (21:59)
[2020-04-10] MEDS ORDERED: KCL 20 MEQ/100 ML IVPREMIX 20 MEQ/100 ML BAG ONE (00:02)
[2020-04-10] MEDS: KCL 20 MEQ/100 ML IVPREMIX 20 MEQ/100 ML BAG IV SCH ×3 (00:04→16:56)
[2020-04-10 00:40] LABS: Urine Appearance Cloudy; Urine Bilirubin Negative (Negative); Urine Blood Negative (Negative); Urine Color Yellow; Urine Glucose Negative (Negative); Urine Ketones Negative (Negative); Urine Nitrite Negative (Negative); Urine Protein Negative (Negative); Urine Specific Gravity 1.011 (1.010-1.030); Urine Urobilinogen Negative (Negative)
[2020-04-10] MEDS: NS 0.9% w/ 20 Meq KCL 1000 ml 1,000 ML IV SCH ×2 (05:13→16:53)
[2020-04-10] MEDS: Heparin 5000 UNITS/ML 1 mL VIAL SUBCUT SCH ×3 (05:13→20:13)
[2020-04-10 05:55] LABS: Hematocrit 32 % (35-47); Hemoglobin 10.8 g/dL (12.0-16.0); Mean Corpuscular HGB Conc 34 g/dL (31-36); Mean Corpuscular Hemoglobin 29 pg (27-31); Mean Corpuscular Volume 86 fL (80-97); Mean Platelet Volume 7.9 fL (7.4-10.4); Platelet Count 281 10^3/uL (150-450); Red Blood Count 3.67 10^6 /uL (3.70-4.87); Red Cell Distribution Width 14 % (10-15); White Blood Count 21.4 10^3/uL (3.5-10.8)
[2020-04-10 06:13] LABS: BUN/Creatinine Ratio 37.6 (8-20); Calcium 7.9 mg/dL (8.6-10.3); EGFR African American 38.7 (>60); EGFR Non-African American 31.9 (>60)
[2020-04-10 06:17] LABS: Potassium 2.6 mmol/L (3.5-5.0)
[2020-04-10 06:22] LABS: ABS Basophils 0.1 10^3/ul (0-0.2); ABS Lymphocytes 0.6 10^3/ul (1.0-4.8); ABS Monocytes 1.6 10^3/ul (0-0.8); ABS Neutrophils 19.1 10^3/ul (1.5-7.7); Lymphocyte % 2.9 %; Nucleated Red Blood Cells % 0.1
[2020-04-10] MEDS ORDERED: Potassium Chlor 20 meq TAB.ER PO ONE (09:47)
[2020-04-10] MEDS: Venlafaxine XR 75 mg PO SCH ×2 (09:47→18:14)
[2020-04-10] MEDS: Cholestyramine Resin 4 GM POWDER PO SCH (09:48)
[2020-04-10 09:59] LABS: Magnesium 2.8 mg/dL (1.9-2.7)
[2020-04-10] MEDS: cefTRIAXone 1 gm/50 mL NS BAG 1 GM/50 ML BAG IVPB SCH (16:43)
[2020-04-11] MEDS: Heparin 5000 UNITS/ML 1 mL VIAL SUBCUT SCH ×3 (05:03→20:19)
[2020-04-11] MEDS: Venlafaxine XR 75 mg PO SCH ×2 (05:04→18:12)
[2020-04-11 06:37] LABS: Hematocrit 30 % (35-47); Hemoglobin 10.3 g/dL (12.0-16.0); Mean Corpuscular HGB Conc 34 g/dL (31-36); Mean Corpuscular Hemoglobin 30 pg (27-31); Mean Corpuscular Volume 87 fL (80-97); Mean Platelet Volume 8.1 fL (7.4-10.4); Platelet Count 279 10^3/uL (150-450); Red Blood Count 3.48 10^6 /uL (3.70-4.87); Red Cell Distribution Width 14 % (10-15); White Blood Count 20.3 10^3/uL (3.5-10.8)
[2020-04-11 06:53] LABS: EGFR African American 39.2 (>60); EGFR Non-African American 32.4 (>60); Potassium 3.3 mmol/L (3.5-5.0)
[2020-04-11 07:35] LABS: ABS Basophils 0.1 10^3/ul (0-0.2); ABS Eosinophils 0.1 10^3/ul (0-0.6); ABS Lymphocytes 0.9 10^3/ul (1.0-4.8); ABS Monocytes 1.1 10^3/ul (0-0.8); ABS Neutrophils 18.1 10^3/ul (1.5-7.7); Eosinophil % 0.5 %; Lymphocyte % 4.6 %
[2020-04-11 07:53] LABS: Polychromasia 1+
[2020-04-11] MEDS: Cholestyramine Resin 4 GM POWDER PO SCH (09:44)
[2020-04-11] MEDS ORDERED: Potassium Chlor 20 meq TAB.ER PO ONE (10:23)
[2020-04-11] MEDS ORDERED: NS 0.9% 1000 ml BAG 1,000 ML IV SCH (11:45)
[2020-04-11] MEDS: cefTRIAXone 1 gm/50 mL NS BAG 1 GM/50 ML BAG IVPB SCH (15:16)
[2020-04-12] MEDS: Venlafaxine XR 75 mg PO SCH ×2 (05:37→17:36)
[2020-04-12] MEDS: Heparin 5000 UNITS/ML 1 mL VIAL SUBCUT SCH ×3 (05:37→20:17)
[2020-04-12 08:41] LABS: Hematocrit 33 % (35-47); Mean Corpuscular HGB Conc 34 g/dL (31-36); Mean Corpuscular Hemoglobin 29 pg (27-31); Mean Corpuscular Volume 87 fL (80-97); Mean Platelet Volume 8.2 fL (7.4-10.4); Platelet Count 300 10^3/uL (150-450); Red Blood Count 3.75 10^6 /uL (3.70-4.87); Red Cell Distribution Width 15 % (10-15); White Blood Count 15.8 10^3/uL (3.5-10.8)
[2020-04-12 09:05] LABS: Calcium 8.8 mg/dL (8.6-10.3); Magnesium 1.7 mg/dL (1.9-2.7); Potassium 3.5 mmol/L (3.5-5.0)
[2020-04-12 09:10] LABS: BUN/Creatinine Ratio 29.2 (8-20); EGFR African American 39.5 (>60); EGFR Non-African American 32.7 (>60)
[2020-04-12] MEDS: Cholestyramine Resin 4 GM POWDER PO SCH (09:54)
[2020-04-12 11:26] LABS: ABS Basophils 0.1 10^3/ul (0-0.2); ABS Eosinophils 0.1 10^3/ul (0-0.6); ABS Lymphocytes 1.3 10^3/ul (1.0-4.8); ABS Monocytes 0.9 10^3/ul (0-0.8); ABS Neutrophils 13.5 10^3/ul (1.5-7.7); Eosinophil % 0.7 %; Lymphocyte % 8.1 %
[2020-04-12] MEDS: cefTRIAXone 1 gm/50 mL NS BAG 1 GM/50 ML BAG IVPB SCH (16:09)
[2020-04-13] MEDS: Venlafaxine XR 75 mg PO SCH ×2 (05:08→17:17)
[2020-04-13] MEDS: Heparin 5000 UNITS/ML 1 mL VIAL SUBCUT SCH ×3 (05:08→20:52)
[2020-04-13] MEDS: CMCS: Oral Rinse (Biotene)(NF) 237 ML or 473 ML ORAL RINSE BTL MT PRN ×2 (05:08→16:08)
[2020-04-13 06:23] LABS: Hematocrit 34 % (35-47); Hemoglobin 11.7 g/dL (12.0-16.0); Mean Corpuscular HGB Conc 35 g/dL (31-36); Mean Corpuscular Hemoglobin 29 pg (27-31); Mean Corpuscular Volume 85 fL (80-97); Mean Platelet Volume 7.6 fL (7.4-10.4); Platelet Count 296 10^3/uL (150-450); Red Blood Count 3.98 10^6 /uL (3.70-4.87); Red Cell Distribution Width 14 % (10-15); White Blood Count 11.9 10^3/uL (3.5-10.8)
[2020-04-13 06:39] LABS: ABS Basophils 0.1 10^3/ul (0-0.2); ABS Eosinophils 0.2 10^3/ul (0-0.6); ABS Lymphocytes 1.7 10^3/ul (1.0-4.8); ABS Monocytes 1.1 10^3/ul (0-0.8); ABS Neutrophils 8.8 10^3/ul (1.5-7.7); Eosinophil % 1.7 %; Lymphocyte % 14.3 %
[2020-04-13 06:47] LABS: BUN/Creatinine Ratio 29.3 (8-20); Calcium 8.5 mg/dL (8.6-10.3); EGFR African American 36.8 (>60); EGFR Non-African American 30.4 (>60); Magnesium 1.3 mg/dL (1.9-2.7)
[2020-04-13 06:59] LABS: Potassium 2.5 mmol/L (3.5-5.0)
[2020-04-13] MEDS: KCL 20 MEQ/100 ML IVPREMIX 20 MEQ/100 ML BAG IV SCH ×3 (08:49→19:04)
[2020-04-13] MEDS: Cholestyramine Resin 4 GM POWDER PO SCH (08:53)
[2020-04-13 08:58] LABS: C Reactive Protein 87.51 mg/L (<8.01)
[2020-04-13] MEDS ORDERED: Magnesium Sulf 4 GM/100 ML IV 4,000 MG/100 ML BAG IVPB ONE (09:00)
[2020-04-13] MEDS: Potassium Chlor 20 meq TAB.ER PO SCH (12:41)
[2020-04-13] MEDS: cefTRIAXone 1 gm/50 mL NS BAG 1 GM/50 ML BAG IVPB SCH (16:04)
[2020-04-14] MEDS: KCL 20 MEQ/100 ML IVPREMIX 20 MEQ/100 ML BAG IV SCH (00:39)
[2020-04-14] MEDS ORDERED: KCL 20 MEQ/100 ML IVPREMIX 20 MEQ/100 ML BAG IV ONE ×2 (01:00→11:42)
[2020-04-14] MEDS: Venlafaxine XR 75 mg PO SCH ×2 (05:12→17:45)
[2020-04-14] MEDS: Heparin 5000 UNITS/ML 1 mL VIAL SUBCUT SCH ×3 (05:12→21:30)
[2020-04-14 08:21] LABS: BUN/Creatinine Ratio 29.9 (8-20); Calcium 8.9 mg/dL (8.6-10.3); EGFR African American 41.7 (>60); EGFR Non-African American 34.5 (>60); Magnesium 2.2 mg/dL (1.9-2.7); Potassium 3.3 mmol/L (3.5-5.0)
[2020-04-14] MEDS: Potassium Chlor 20 meq TAB.ER PO SCH (09:34)
[2020-04-14] MEDS: Psyllium PAK PO SCH (09:36)
[2020-04-14] MEDS: Cholestyramine Resin 4 GM POWDER PO SCH (09:36)
[2020-04-14 10:58] LABS: Hematocrit 34 % (35-47); Hemoglobin 11.5 g/dL (12.0-16.0); Mean Corpuscular HGB Conc 34 g/dL (31-36); Mean Corpuscular Hemoglobin 29 pg (27-31); Mean Corpuscular Volume 86 fL (80-97); Mean Platelet Volume 7.7 fL (7.4-10.4); Platelet Count 280 10^3/uL (150-450); Red Blood Count 3.93 10^6 /uL (3.70-4.87); Red Cell Distribution Width 15 % (10-15); White Blood Count 14.5 10^3/uL (3.5-10.8)
[2020-04-14] MEDS ORDERED: Potassium Chlor 20 meq TAB.ER PO ONE (12:34)
[2020-04-14 13:05] LABS: ABS Basophils 0.1 10^3/ul (0-0.2); ABS Eosinophils 0.2 10^3/ul (0-0.6); ABS Lymphocytes 1.2 10^3/ul (1.0-4.8); Eosinophil % 1.2 %; Lymphocyte % 8.3 %
[2020-04-14] MEDS: cefTRIAXone 1 gm/50 mL NS BAG 1 GM/50 ML BAG IVPB SCH (15:00)
[2020-04-14] MEDS: Al Hydrox/Mg Hydrox/Simet LIQ 30 ML UDC PO PRN (21:37)
[2020-04-15] MEDS: Venlafaxine XR 75 mg PO SCH (06:36)
[2020-04-15] MEDS: Heparin 5000 UNITS/ML 1 mL VIAL SUBCUT SCH (06:37)
[2020-04-15 07:38] LABS: Hematocrit 34 % (35-47); Hemoglobin 11.2 g/dL (12.0-16.0); Mean Corpuscular HGB Conc 33 g/dL (31-36); Mean Corpuscular Hemoglobin 29 pg (27-31); Mean Corpuscular Volume 87 fL (80-97); Platelet Count 283 10^3/uL (150-450); Red Blood Count 3.89 10^6 /uL (3.70-4.87); Red Cell Distribution Width 15 % (10-15); White Blood Count 14.6 10^3/uL (3.5-10.8)
[2020-04-15 07:52] LABS: BUN/Creatinine Ratio 29.3 (8-20); Calcium 8.9 mg/dL (8.6-10.3); EGFR African American 40.7 (>60); EGFR Non-African American 33.7 (>60); Magnesium 1.8 mg/dL (1.9-2.7); Potassium 3.3 mmol/L (3.5-5.0)
[2020-04-15 08:06] LABS: ABS Basophils 0.1 10^3/ul (0-0.2); ABS Eosinophils 0.5 10^3/ul (0-0.6); ABS Lymphocytes 1.7 10^3/ul (1.0-4.8); ABS Monocytes 1.4 10^3/ul (0-0.8); ABS Neutrophils 10.9 10^3/ul (1.5-7.7); Eosinophil % 3.1 %; Lymphocyte % 11.8 %
[2020-04-15] MEDS ORDERED: Magnesium Sulfate 2 gm BAG 2 GM/50 ML BAG IVPB ONE (08:50)
[2020-04-15] MEDS: Al Hydrox/Mg Hydrox/Simet LIQ 30 ML UDC PO PRN (08:56)
[2020-04-15] MEDS ORDERED: Cholestyramine Resin 4 GM POWDER ONE (08:58)
[2020-04-15] MEDS ORDERED: Potassium Chlor 20 meq TAB.ER PO SCH (09:00)
[2020-04-15] MEDS: Cholestyramine Resin 4 GM POWDER PO SCH (09:02)
[2020-04-15] MEDS: Psyllium PAK PO SCH (09:03)
[2020-04-15 12:39] VITALS: BP 159/71
== END 2020-04-15 12:45 | disposition home or self-care (01) ==
LOC: ED 09:48 → MEDTELE 13:26
PROVIDERS: ADMIT Internal Medicine; ATTEND Internal Medicine

== ENCOUNTER 2020-04-30 15:49 | Observation (INO) ==
[2020-04-30] MEDS ORDERED: NS 0.9% 1000 ml BAG 1,000 ML IV ONE (17:27)
[2020-04-30 17:40] LABS: ABS Basophils 0.1 10^3/ul (0-0.2); ABS Eosinophils 0.1 10^3/ul (0-0.6); ABS Lymphocytes 1.1 10^3/ul (1.0-4.8); ABS Monocytes 0.9 10^3/ul (0-0.8); ABS Neutrophils 6.8 10^3/ul (1.5-7.7); Eosinophil % 1.4 %; Hematocrit 28 % (35-47); Lymphocyte % 11.9 %; Mean Corpuscular HGB Conc 35 g/dL (31-36); Mean Corpuscular Hemoglobin 30 pg (27-31); Mean Corpuscular Volume 86 fL (80-97); Mean Platelet Volume 8.2 fL (7.4-10.4); Platelet Count 311 10^3/uL (150-450); Red Cell Distribution Width 15 % (10-15); White Blood Count 8.9 10^3/uL (3.5-10.8)
[2020-04-30 17:59] LABS: ALT 24 U/L (7-52); Albumin 3.6 g/dL (3.2-5.2); Albumin/Globulin Ratio 1.2 (1-3); Alkaline Phosphatase 126 U/L (34-104); BUN/Creatinine Ratio 21.5 (8-20); Blood Urea Nitrogen 34 mg/dL (6-24); CO2 Carbon Dioxide 20 mmol/L (22-32); Calcium 9.3 mg/dL (8.6-10.3); Chloride 105 mmol/L (101-111); EGFR African American 38.4 (>60); EGFR Non-African American 31.7 (>60); Glucose 105 mg/dL (70-100); Magnesium 2.1 mg/dL (1.9-2.7); Sodium 135 mmol/L (135-145); Total Protein 6.6 g/dL (6.4-8.9)
[2020-04-30 18:00] LABS: Troponin I 0.02 ng/mL (<0.03)
[2020-04-30 18:19] LABS: TSH Ultra Thyroid Stim Horm 24.77 mcIU/mL (0.34-5.60)
[2020-04-30 18:35] LABS: Anion Gap 10 mmol/L (2-11)
[2020-04-30 19:45] LABS: Potassium Redraw 2.9 mmol/L (3.5-5.0)
[2020-04-30] MEDS: KCL 20 MEQ/100 ML IVPREMIX 20 MEQ/100 ML BAG IV SCH ×2 (20:44→23:45)
[2020-04-30] MEDS ORDERED: Ondansetron 4 mg VIAL 2 MG/ML 2 ml VIAL IV PRN (21:06)
[2020-04-30] MEDS ORDERED: Potassium Chlor 20 meq TAB.ER PO ONE (21:14)
[2020-04-30] MEDS ORDERED: Al Hydrox/Mg Hydrox/Simet LIQ 30 ML UDC PO PRN (21:15)
[2020-04-30 21:21] LABS: Free T4 0.76 ng/dL (0.61-1.12)
[2020-04-30] MEDS ORDERED: Diphenoxylat/Atrop 2.5-0.025mg TAB PO PRN (22:37)
[2020-04-30] MEDS: Venlafaxine XR 75 mg PO SCH (23:46)
[2020-04-30] MEDS: Heparin 5000 UNITS/ML 1 mL VIAL SUBCUT SCH (23:47)
[2020-05-01 01:08] LABS: Urine Appearance Clear; Urine Bilirubin Negative (Negative); Urine Blood Negative (Negative); Urine Color Straw; Urine Glucose Negative (Negative); Urine Ketones Negative (Negative); Urine Nitrite Negative (Negative); Urine Protein Negative (Negative); Urine Specific Gravity 1.004 (1.010-1.030); Urine Urobilinogen Negative (Negative)
[2020-05-01] MEDS: Heparin 5000 UNITS/ML 1 mL VIAL SUBCUT SCH ×2 (06:05→14:11)
[2020-05-01] MEDS: Potassium Chloride LIQUID 20 MEQ/15 ML LIQUID PO SCH ×2 (08:36→14:11)
[2020-05-01] MEDS: Venlafaxine XR 75 mg PO SCH (08:37)
[2020-05-01] MEDS ORDERED: Cholestyramine Resin 4 GM POWDER PO SCH (09:00)
[2020-05-01] MEDS ORDERED: Psyllium PAK PO SCH (09:00)
[2020-05-01 09:48] LABS: ABS Basophils 0.1 10^3/ul (0-0.2); ABS Eosinophils 0.2 10^3/ul (0-0.6); ABS Lymphocytes 0.9 10^3/ul (1.0-4.8); ABS Monocytes 0.6 10^3/ul (0-0.8); ABS Neutrophils 4.7 10^3/ul (1.5-7.7); Eosinophil % 2.4 %; Hematocrit 27 % (35-47); Hemoglobin 8.9 g/dL (12.0-16.0); Lymphocyte % 14.2 %; Mean Corpuscular HGB Conc 34 g/dL (31-36); Mean Corpuscular Hemoglobin 29 pg (27-31); Mean Corpuscular Volume 87 fL (80-97); Mean Platelet Volume 8.2 fL (7.4-10.4); Nucleated Red Blood Cells % 0.1; Platelet Count 278 10^3/uL (150-450); Red Blood Count 3.06 10^6 /uL (3.70-4.87); Red Cell Distribution Width 15 % (10-15); White Blood Count 6.5 10^3/uL (3.5-10.8)
[2020-05-01 10:03] LABS: Albumin 3.1 g/dL (3.2-5.2); Albumin/Globulin Ratio 1.1 (1-3); BUN/Creatinine Ratio 20.1 (8-20); Calcium 8.8 mg/dL (8.6-10.3); EGFR African American 46.4 (>60); EGFR Non-African American 38.4 (>60); Globulin 2.7 g/dL (2-4); Potassium 3.7 mmol/L (3.5-5.0); Total Bilirubin 0.2 mg/dL (0.2-1.0); Total Protein 5.8 g/dL (6.4-8.9)
[2020-05-01] MEDS ORDERED: KCL 20 MEQ/100 ML IVPREMIX 20 MEQ/100 ML BAG IV ONE (11:17)
[2020-05-01 15:29] VITALS: BP 128/59
== END 2020-05-01 16:19 | disposition home or self-care (01) ==
LOC: ED 15:49 → MEDTELE 15:49
PROVIDERS: ADMIT Internal Medicine; ATTEND Student in an Organized Health Care Education/Training Program